=== PATIENT | male | born 1975 | race Caucasian/White ===

== ENCOUNTER 2017-11-27 08:00 | Outpatient (RCR) | payer BC, OTHER, SELFPAY ==
--- NOTE | 2017-10-14 08:02 | HP.PTREVAL ---
Jennifer Souza, , MUSIC REHABILITATION THERAPIST.TATIA[place] It has been my pleasure to treat ALLEGRA GUAJARDO over the last 13 visits for L/S disc herniation s/p discectomy early August. Please see the progress note below for an update on the physical therapy plan of care! Subjective: R shoulder sore, must have slept on it wrong Saturday. No pain in LB. Still has rouble getting out of bed and up from lying if there too long. Objective/Function: No deviations seen in gait pattern of slow jog. Improving L/S ROM near full ext with just a minor pinch, R SB is good, L SB is mildly uncomfortable transiently, flexion is improving. Some discomfort with R c/s rotation in R UT, shoulder is strong and goo full motion. Plan Plan: Pt to do strengthening I...in clinic will progress jogging toward a mile and rollout, stretch HS and overpressure on LB ROM. Goals Goal 1:: L/S AROM without pain or resistance. Goal Time Frame: 4-6 Weeks Goal 2:: I approp stretching and strengthening for LB and LE Goal Time Frame: 4-6 Weeks Goal Progress: Goal Met Goal 3:: Exit chair normally without compensation Goal Time Frame: 4-6 Weeks Goal 4:: Plan to start lifting and running Goal Time Frame: 4-6 Weeks Anticipated Interventions Patient/Client Instruction: Educate patient on: Condition, Plan of Care For the Purpose of:: To decrease pain, To increase ROM, To improve ability of physical actions for home/community/work/leisure Therapeutic Exercise to Include: Strength training, Postural training, Flexibilty training, Passive ROM, Active ROM For the Purpose of:: To decrease pain, To increase ROM, To improve nutrient delivery to tissue, To improve muscle performance and motor function, To improve ability of physical actions for home/community/work/leisure, To improve gait and locomotor functions Manual Therapy Techniques to Include: Scar massage, Soft tissue mobilization For the Purpose of:: To improve nutrient delivery to tissue Cryotherapy (ice pack, ice massage): Yes For the Purpose of:: To decrease pain, To decrease swelling/inflammation Please do not hesitate to contact me at [phone] by phone or if you have questions or concerns regarding this new plan of care! Sincerely, Juan Mcadams, DPT, OC
--- NOTE | 2017-10-25 08:32 | HP.PTREVAL_ITS ---
Jennifer Souza, , It has been my pleasure to treat ALLEGRA GUAJARDO over the last 16 visits for L/S disc herniation s/p discectomy early August. Please see the progress note below for an update on the physical therapy plan of care! Subjective: Jog on TM 1.6 miles at 5.5 mph today without pain. Still feels tight in legs but no low back pain. Working out 3x week on weights and 5x week CV and stretches. MWF are running days and stretching. Still stiff if lies flat for a period of time and hard to get up. Threw BP the other nigth for a little bit and got tight half hour later. Objective/Function: Ext good with R tightness. Flexion improving, SB tigh in T/ S but not L/S, HS and hip flexors still mod tight(explained this would be a lifelong novak.). Doing well with goals and working hard. Plan Plan: f/u in 2-3 weeks to ensure progression with jog and check goals and ROM Goals Goal 1:: L/S AROM without pain or resistance. Goal Time Frame: 4-6 Weeks Goal Progress: Goal Met Goal 2:: I approp stretching and strengthening for LB and LE Goal Time Frame: 4-6 Weeks Goal Progress: Goal Met Goal 3:: Exit chair normally without compensation Goal Time Frame: 4-6 Weeks Goal Progress: Goal Met Goal 4:: Plan to start lifting and running Goal Time Frame: 4-6 Weeks Goal 5:: Decreased pain getting up in morning Goal Time Frame: 2-4 Weeks Goal Progress: NEW GOAL Goal 6:: Jog 3 miles on TM without pain Goal Time Frame: 2-4 Weeks Goal Progress: NEW GOAL Anticipated Interventions Patient/Client Instruction: Educate patient on: Condition, Plan of Care For the Purpose of:: To decrease pain, To increase ROM, To improve ability of physical actions for home/community/work/leisure Therapeutic Exercise to Include: Strength training, Postural training, Flexibilty training, Passive ROM, Active ROM For the Purpose of:: To decrease pain, To increase ROM, To improve nutrient delivery to tissue, To improve muscle performance and motor function, To improve ability of physical actions for home/community/work/leisure, To improve gait and locomotor functions Manual Therapy Techniques to Include: Scar massage, Soft tissue mobilization For the Purpose of:: To improve nutrient delivery to tissue Cryotherapy (ice pack, ice massage): Yes For the Purpose of:: To decrease pain, To decrease swelling/inflammation Please do not hesitate to contact me at [phone] by phone or Fax: if you have questions or concerns regarding this new plan of care! Sincerely, Juan Mcadams, DPT, OC
--- NOTE | 2017-11-12 15:30 | HP.PTREVAL_ITS ---
Jennifer Souza, , It has been my pleasure to treat ALLEGRA GUAJARDO over the last 17 visits for L/S disc herniation s/p discectomy early August. Please see the progress note below for an update on the physical therapy plan of care! Subjective: Sore in the low back daily and most of time 8/10 intermittently. Lying flat still a rpoblem especially getting up. Numbness in L leg if overdoes it and was told it would be there for a year. Sleep is restless. 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 Running is OK and is 5.5 TM for 2-2.5 miles. Was in [place] a week and not bad when he was there. Objective/Function: 5/5 le STRENGTH. Getting up from lying on tummy 3 minutes is still very problematic and uncomfortable appearing unstable in L/S. PA pressure not painful. R piriformis is minimally tender and hurts to R rotation and B SB. L/S ext adn flexion are WFL and painfree(no increased symptoms). Walks well and without deficits. PAIN IS STILL TOO HIGH AT 8/10 DAILY AND WORSENING, PAIN AND APPARENT INSTABILITY GETTING UP OFF TABLE FROM TUMMY IS OBVIOUS. HAS NOT PROGRESSED OVER LAST THREE WEEKS WITH PAIN AND IS SLIGHTLY WORSE. DOCTOR AID HE WOULD HAVE PAIN FOR A YEAR AND NUMBNESS BUT THIS IS MORE THAN I EXPECT. Plan Plan: HOLD ALL STRENGTH FOR A WEEK, FOCUS STRETCHING, YOGA FLOW, LB ROM AND tm PROGRESSION/CV EX. RECHECK IN A WEEK AND THEN WEEKLY X4-6 TO ENSURE IMPRROVEMENT AND PROGRESSION BACK TO EX SLOWLY OR REFER BACK TO DOCTOR IF NOT IMPROVING Goals Goal 1:: L/S AROM without pain or resistance. Goal Time Frame: 4-6 Weeks Goal Progress: Goal Met Goal 2:: I approp stretching and strengthening for LB and LE Goal Time Frame: 4-6 Weeks Goal Progress: Goal Met Goal 3:: Exit chair normally without compensation Goal Time Frame: 4-6 Weeks Goal Progress: STILL SOME PAIN Goal 4:: Plan to start lifting and running Goal Time Frame: 4-6 Weeks Goal Progress: Goal Met Goal 5:: Decreased pain getting up in morning Goal Time Frame: 2-4 Weeks Goal Progress: NOT PROGRESS, CHANGED EX Goal 6:: Jog 3 miles on TM without pain Goal Time Frame: 2-4 Weeks Goal Progress: Progressing Anticipated Interventions Patient/Client Instruction: Educate patient on: Condition, Plan of Care For the Purpose of:: To decrease pain, To increase ROM, To improve ability of physical actions for home/community/work/leisure Therapeutic Exercise to Include: Strength training, Postural training, Flexibilty training, Passive ROM, Active ROM For the Purpose of:: To decrease pain, To increase ROM, To improve nutrient delivery to tissue, To improve muscle performance and motor function, To improve ability of physical actions for home/community/work/leisure, To improve gait and locomotor functions Manual Therapy Techniques to Include: Scar massage, Soft tissue mobilization For the Purpose of:: To improve nutrient delivery to tissue Cryotherapy (ice pack, ice massage): Yes For the Purpose of:: To decrease pain, To decrease swelling/inflammation Please do not hesitate to contact me at [phone] by phone or Fax: if you have questions or concerns regarding this new plan of care! Sincerely, Juan Mcadams, DPT, OC
--- NOTE | 2017-11-27 08:30 | HP.PTDCSUM ---
HP - PT D/C Summary It has been my pleasure to treat ALLEGRA GUAJARDO under orders from Jennifer Souza, , for the diagnosis of L/S disc herniation s/p discectomy early August for a total of 18 visit(s). Discharge Date: 11/27/17 Please see the following information for a summary of their discharge status. - Subjective Subjective: Feels a little bit better. Pain down to 5/10 vs. 7/10. Stopped strength and has been stretching and running. Running 2 miles on TM. Still has bad pain getting up from lying down. Always gets bad pain in the morning getting out of bed. Pain is R>L. No real leg symptoms lately, R buittock stiff at times. Has been doing a lot of yard work lately but is taking it easy. Standing at [employer] game too long hurts. Always feel better after running. - Pain LBP Pain Intensity (Out of 10): 0 - Overall Improvement % Improvement: 70 - Objective Objective/Function: AROM L/S WFL, L SB still gives some stretching on R LB. Otherwise ROM improving and Strength in LE is good. PT MOST NOTABLY STILL HAS HIGHER THAN I WOULD EXPECT PAIN DESPITE RESTING AND STRETCHING. HE IS ONE WHO TENDS TO OVERDO THINGS BUT THIS PAIN SEEMS DIFFERENT. IN PARTICULAR, WHENEVER HE LIES DOWN FOR EVEN SHORT PERIODS OF TIME, GETTING UP IS VERY PROBLEMATIC AND SEEMINGLY UNSTABLE WITH BAD PAIN IN LB UNTIL HE IS UPRIGHT. THIS IS APPROPRIATE TO BE CHECKED OUT BY DOCTOR IT IS OUT OF THE ORDINARY AND NOT IMPROVING IN THE SLIGHTEST. - Goals Goal 1:: L/S AROM without pain or resistance. Goal Progress: Goal Met Goal 2:: I approp stretching and strengthening for LB and LE Goal Progress: Goal Met Goal 3:: Exit chair normally without compensation Goal Progress: Goal Met Goal 4:: Plan to start lifting and running Goal Progress: hold Goal 5:: Decreased pain getting up in morning Goal Progress: Not Progressing Goal 6:: Jog 3 miles on TM without pain Goal Progress: Not Progressing - Plan Plan: D/C, pt back to doctor for recheck. - D/C Information Discharge Comments: Pt doing well with exercises. Pain is still higher than i expect at 5/10 with activity despite taking care. Most notably, he has bad pain upon arising from horizontal position especially in am but even after being supine for shorter periods. Recommend he follow up with doctor as this is not improving at all and does make him miserable. If there are questions or concerns regarding this patient's physical therapy, please feel free to call me at [phone]. Thank you for the referral of this patient. Sincerely, Juan Mcadams, DPT, OC
== END 2017-11-27 19:00 | disposition home or self-care (01) ==
LOC: PT 08:00
PROVIDERS: Family Provider Family Medicine; PCP Family Medicine; Visit Provider Nurse Practitioner Acute Care
DX: M51.16 Intervertebral disc disorders with radiculopathy, lumbar region (principal)
CPT/HCPCS: 97110; 97140; 97162; 97530

== ENCOUNTER → 2018-01-22 11:46 | Outpatient (CLI) | payer BC, SELFPAY ==
--- NOTE | 2018-01-22 11:52 | RAD_ITS ---
STUDY: X-RAY - LUMBAR SPINE REASON FOR EXAM: Male, 42 years old. Low back pain. TECHNIQUE: 4 view(s) of the lumbar spine were obtained. Lateral views were performed in flexion and extension.. COMPARISON: 04/11/2016. FINDINGS: Normal lumbar lordosis. There is decreased range of motion on flexion and extension. There is no substantial scoliosis. There is a normal alignment of the vertebrae. Normal vertebral bodies and endplates. There is disc space narrowing at the L5-S1 level. The soft tissue structures are unremarkable. RAD/L/S Spine Bending Flex/Ext IMPRESSION: Degenerative disc disease L5-S1. Decreased range of motion on flexion and extension, which might be due to muscle spasm or guarding. No evidence for subluxation or instability. Electronically Signed: Laci Barclay MD at 7:41 EDT , Service support ,
[2018-01-22 14:25] LABS: Absolute Lymphocyte Count 1.73 X10^3/ul (0.83-4.51); Basophil# 0.01 X10^3/uL; Basophil% 0.2 % (0-1); Eosinophil# 0.05 X10^3/uL; Eosinophils% 0.8 % (0-5); Erythrocyte Sedimentation Rate 9 mm/hr (0-15); Hematocrit 43.9 % (40-54); Hemoglobin 15.6 g/dl (13.0-16.5); Lymphocyte # 1.73 X10^3/ul (4.0); Lymphocyte % 26.7 % (19-41); Mean Corp Hgb Conc 35.5 g/gl (32-36); Mean Corpuscular Hgb 30.5 pg (27.0-32.0); Mean Corpuscular Volume 85.7 fL (80-94); Mean Platelet Vol. 9.9 fl (6.2-12.0); Monocyte# 0.64 X10^3/uL; Monocyte% 9.9 % (0-10); Neutrophil # 4.03 X10^3/uL (2.7-7.7); Neutrophil % 62.2 % (47-70); Platelet Count 186 K/mm3 (150-450); RBC Distribution Width CV 12.9 % (11.6-14.6); RBC Distribution Width SD 39.7 fl (35.1-43.9); Red Blood Count 5.12 M/mm3 (4.6-6.2); White Blood Count 6.5 K/mm3 (4.4-11.0)
[2018-01-22 14:29] LABS: CRP < 2.90 mg/L (0.0-3.0)
[2018-01-22 14:30] LABS: POSITIVE COUNT NO; POSITIVE DIFFERENTIAL NO; POSITIVE MORPHOLOGY NO
== END ==
PROVIDERS: Family Provider Family Medicine; PCP Family Medicine; Visit Provider Nurse Practitioner Acute Care
DX: M51.16 Intervertebral disc disorders with radiculopathy, lumbar region (principal)
CPT/HCPCS: 36415; 72120; 85025; 85652; 86140

== ENCOUNTER → 2018-06-18 16:11 | Outpatient (CLI) | payer BC, SELFPAY ==
[2018-06-18 17:43] LABS: AST(SGOT) 20 U/L (15-37); Alanine Aminotransfer ALT/SGPT 53 U/L (16-61); Albumin, Serum 3.7 g/dL (3.2-5.0); Alkaline Phosphatase 108 U/L (45-117); Globulin 4.2 g/dL (2.2-4.2); Protein, Total 7.9 g/dL (6.4-8.2)
== END ==
PROVIDERS: Family Provider Family Medicine; PCP Family Medicine; Visit Provider Internal Medicine Rheumatology
DX: R74.8 Abnormal levels of other serum enzymes (principal)
CPT/HCPCS: 36415; 80076

== ENCOUNTER → 2018-10-23 07:10 | Outpatient (CLI) | payer BC, SELFPAY ==
--- NOTE | 2018-10-23 07:27 | MRI_ITS ---
STUDY: MRI RIGHT ANKLE WITHOUT CONTRAST REASON FOR EXAM: Pain superior to the malleoli, chronic right ankle strain, evaluate for stress fracture. TECHNIQUE: Standardized fat and water weighted pulse sequences were obtained in all 3 orthogonal planes. COMPARISON: None. FINDINGS: Normal subcutis adipose space. Normal posterior tibialis tendon. Normal flexor digitorum longus tendon. Normal flexor hallucis longus tendon. Normal peroneus longus and brevis tendons. Normal tibialis anterior tendon. Normal extensor hallucis longus tendon. Normal extensor digitorum longus tendons. Normal Achilles tendon and teno-osseous insertion. Normal plantar fascia. Normal plantar calcaneal tubercles. Normal intrinsic muscles of the rearfoot. There is scarring with thickening of the anterior and posterior tibiofibular ligaments of the distal tibiofibular syndesmotic ligamentous complex (T2 axial images 15, 16) and ossification in the distal tibiofibular syndesmosis (T1 axial images 4-11). There is mild thickening of the anterior talofibular ligament (T2 axial image 20) consistent with scarring. Normal calcaneofibular and posterior talofibular ligaments. Normal subtalar ligaments and sinus tarsi. Normal deltoid ligamentous complexes. Normal plantar calcaneonavicular (spring) ligament. There is a small tibiotalar joint effusion (inversion recovery sagittal images 9-11). Normal talar dome. Normal subtalar articulations. Normal talonavicular articulation. Normal calcaneocuboid articulation. Normal navicular-cuneiform articulations. There is intramedullary bone edema/periosteal edema of the distal fibular diaphysis (inversion recovery sagittal images 6, 7), a stress phenomenon. There is very mild bone edema of the posterior aspect of the medial malleolus (inversion recovery sagittal image 20; T2 coronal image 16), a stress phenomenon. MRI/Lower Ext Joint Only (Routine) IMPRESSION: Bone edema of the distal fibular diaphysis, a stress phenomenon. Very mild bone edema of the posterior aspect of the medial malleolus, a stress phenomenon. Scarring of the anterior and posterior tibiofibular ligaments with ossification in the distal tibiofibular syndesmosis. Mild scarring of the anterior talofibular ligament. Small tibiotalar joint effusion. Electronically Signed: Easton Mcghee MD at 9:06 EDT Tel , Service support ,
== END ==
PROVIDERS: Family Provider Family Medicine; PCP Family Medicine; Referring Provider Podiatrist; Visit Provider Podiatrist
DX: M84.371A Stress fracture, right ankle, initial encounter for fracture (principal); S96.911A Strain of unspecified muscle and tendon at ankle and foot level, right foot, initial encounter
CPT/HCPCS: 73721

== ENCOUNTER 2018-11-28 07:00 | Outpatient (RCR) | payer BC, SELFPAY ==
--- NOTE | 2018-11-07 12:58 | HP.PTEVAL ---
Patient's Visit Information ALLEGRA GUAJARDO is a 43 year old M referred to Physical Therapy by Adria Galindo DPM with a diagnosis of chronic ankle sprain. Date of Evaluation: 11/07/18 Physical Therapist: Juan Mcadams DPT, OCS, CSCS - Visit Plan Frequency: 3x /Week Duration: 4-6 Weeks Plan: 3x/week fro 4-6 weeks per script for. 1. Ionto with dex to R medial ankle. 2. ROM and strength/proprioception to R ankle without interrupting syndesmotic healing and wearing brace as needed. 3. mobs as needed for inv/ev/df and progression of function. 4. - Subjective Findings: June got a high ankle sprain after slipping up hill and busting lip. Hurt a little and swelled up at the time. Has had to stop running and let it heal. Slow. A month ago went to do some [place] dn dry needling without results. Sent to [facility] and then Dr. Galindo. MRi showed partial inflammation. In ankle brace for a week which helps but it still hurts to 6/10 immediately outside ankle and posterior. Noticeable but comfortable at rest. H/O back pain and nerve ablation on R side adn it cured his back pain for normal every day activtiies. Hasn't done anything in gym in two weeks due to pain. It increased his pain to 8/10 - Pain R ankle pain Pain Intensity (Out of 10): 4 Pain Intensity Range: 4, 7 - Objective R ankle brace donned and doffed I. Tender to palpation distal medial and lateral malleoli and posterior to it, also up medial achilles. AROM R ankle is 2 DF vs. 5 on L, full PF with pain, incersion and eversion are 18 and 8 on R and 24 adn 12 on L with R sided pain slightlym better with squeeze of tib fib. Pes planus B but has orthtics and never liked them. strength R ankle 4/5 with pain with inv/ev/PF and 5/5 L. + talar tilt. + drawer test R ankle. Knee and hip WFL. Walks normal today but SLS R worse than L at 12 seconds vs 30 . Unable to land on a hop without pain R medial ankle. - Goals Goal 1:: Pain free at rest adn back to some workout Goal Time Frame: 2-4 Weeks Goal 2:: Full AROM and resisted strength test without pain R ankle Goal Time Frame: 4-6 Weeks Goal 3:: Work and walk for social without pain R ankle Goal Time Frame: 4-6 Weeks Goal 4:: Plan to return to jogging. Goal Time Frame: 4-6 Weeks - Rehabilitation Potential Physical Therapy Diagnosis: R high ankle sprain. Rehabilitation Potential: Fair - Anticipated Interventions Patient/Client Instruction: Educate patient on: Condition, Plan of Care For the Purpose of:: To decrease pain, To increase ROM, To improve gait and locomotor functions Therapeutic Exercise to Include: Strength training, Flexibilty training, Passive ROM, Active ROM For the Purpose of:: To improve ability of physical actions for home/community/work/leisure, To improve gait and locomotor functions Iontophoresis (with Dexamethozone, with Acetic acid): Yes - to R ankle medially. For the Purpose of:: To decrease pain, To decrease swelling/inflammation Thank you for the opportunity to evaluate your patient. For Medicare and Medicare HMO plans, please review the plan of care and approve it. It will need to be FAXED BACK to us at [phone] for Medicare purposes. For Medicare only, by signing this I certify the plan of care. Please let me know if there are questions or concerns regarding this plan of care. Physician Signature: Date:
--- NOTE | 2019-02-03 13:44 | HP.PTDCNRP_ITS ---
HP - Discharge Summary (1) - Patient Information ALLEGRA GUAJARDO was seen in my office for initial evaluation on 11/07/18. The following Plan of Care was established for this patient: Initial Frequency: 3x /Week Initial Duration: 4-6 Weeks - Anticipated Interventions Patient/Client Instruction: Educate patient on: Condition, Plan of Care For the Purpose of:: To decrease pain, To increase ROM, To improve gait and loc omotor functions Therapeutic Exercise to Include: Strength training, Flexibilty training, Passive ROM, Active ROM For the Purpose of:: To improve ability of physical actions for home/community/work/leisure, To improve gait and locomotor functions Iontophoresis (with Dexamethozone, with Acetic acid): Yes - to R ankle medially. For the Purpose of:: To decrease pain, To decrease swelling/inflammation This patient was last seen in our office 11/28/18. Pertinent comments regarding their Physical therapy will appear below: Pt seen 5 visits of POC. He neglected to schedule or attend any further visits. At this point, it has been over two months adn I will discontinue due to non attendance. At this point I will be discontinuing this patient from physical therapy. I would be happy to see this patient again in the future if found appropriate by the physician. Thank you! Juan Mcadams, DPT, OCS, CSCS
== END 2018-11-28 19:00 | disposition home or self-care (01) ==
LOC: PT 07:00
PROVIDERS: Family Provider Family Medicine; PCP Family Medicine; Referring Provider Podiatrist; Visit Provider Podiatrist
DX: S93.401D Sprain of unspecified ligament of right ankle, subsequent encounter (principal)
CPT/HCPCS: 97033; 97110; 97140; 97162

== ENCOUNTER 2019-02-11 20:54 | Emergency (ER) | payer BC, SELFPAY ==
[2019-02-11 20:55] VITALS: BP 133/78; PULSE 60; RESP 16; TEMP 36.8; O2SAT 96; BMI 31.6
--- NOTE | 2019-02-11 21:31 | ED.DCSUM_ITS ---
- ER Visit Summary Date of Service: 02/11/19 Chief Complaint: Headache History of Present Illness: The patient is a 43 M who presents with migraine headache that began today. Patient states this feels similar to prior migraine headaches except for the fact that it was not responding to his usual medication . Patient states the headache is diffuse across his head. Patient states it is worse on the left. Patient admits to some nausea and vomiting. Patient admits to some photophobia. Patient denies any fevers or chills. Patient denies any paresthesias or weakness. Patient denies any visual changes. Physical Examination: Vital signs are stable. Patient is afebrile. Patient is in no acute distress. Oral mucosa is pink and moist. Neck is supple. Trachea is midline. There is no JVD noted. Heart was regular rate and rhythm. Lungs are clear and equal bilateral. Abdomen is soft. Bowel sounds are normal. There is no tenderness. There is no guarding noted. Skin is warm dry. Cranial nerves II through XII are intact. There are no focal motor or sensory deficits noted. The remaining physical exam is within normal limits. Emergency Department Course and Treatment: Patient was given IV fluids, Benadryl, Compazine, and Toradol. Patient felt better on reevaluation. Patient states his headache was almost resolved. Patient was instructed to rest in a dark quiet room. Patient was instructed to follow-up with his primary care physician in 5 to 7 days. Patient understood and was agreeable with the plan. All questions were answered. Disposition: Discharge home Impression: Migraine headache This note was generated with [employer] dictation software. It may contain incorrect words, spelling, and punctuation that were not noted in review of the chart prior to signing ED Disposition - Plan for ED Patient: Disposition: Home or Assisted Living Diagnosis: Migraine headache Instructions: ED, Migraine (Classical) Referrals: Lyndon Sarabia MD [Primary Care Provider] - 5-7 Days
[2019-02-11] MEDS: 0.9% Normal Saline 1,000 ML 999 ML IV (21:46)
[2019-02-11] MEDS: proCHLORPERazine 10 MG/2 ML Vial IV (21:48)
[2019-02-11] MEDS: Ketorolac 30 MG/ML Syringe IV (21:48)
[2019-02-11] MEDS: DiphenhydrAMINE 50 MG/ML Syringe 25 MG IV (21:48)
== END 2019-02-11 23:04 | disposition home or self-care (01) ==
PROVIDERS: Emergency Provider Emergency Medicine; Family Provider Family Medicine; PCP Family Medicine
DX: G43.909 Migraine, unspecified, not intractable, without status migrainosus (principal)
CPT/HCPCS: 96361; 96374; 96375; 99283; J7030; A4216

== ENCOUNTER → 2019-03-17 09:03 | Outpatient (CLI) | payer BC, SELFPAY ==
[2019-03-17 10:50] LABS: Anion Gap 7 (5-15); BUN 15 mg/dL (7-18); BUN/Creat Ratio 13.5 RATIO (10-20); Calcium,Total 8.9 mg/dL (8.5-10.1); Chloride 108 mmol/L (98-107); Cholesterol 201 mg/dL (200); Creatinine, Serum 1.11 mg/dL (0.70-1.30); EST Glomerular Filtration Rate 77 mL/min (>60); Est Glom Filt Rate - Afr Amer 94 mL/min (>60); Glucose 99 mg/dL (74-106); High Density Lipoprotein 30 mg/dL; Sodium Level 140 mmol/L (136-145); Triglycerides 196 mg/dL; Very Low Density Lipoprotein 39 mg/dL (5-40)
== END ==
PROVIDERS: Family Provider Family Medicine; PCP Family Medicine; Referring Provider Family Medicine; Visit Provider Family Medicine
DX: E78.5 Hyperlipidemia, unspecified (principal)
CPT/HCPCS: 36415; 80048; 80061

== ENCOUNTER → 2019-05-19 06:37 | Outpatient (CLI) | payer BC, SELFPAY ==
--- NOTE | 2019-05-19 06:41 | MRI_ITS ---
STUDY: MRI LUMBAR SPINE WITHOUT CONTRAST REASON FOR EXAM: Male, 43 years old. Low back pain. Right hip pain. TECHNIQUE: Standardized fat and water weighted pulse sequences were obtained in the sagittal and axial planes. COMPARISON: January 22, 2018 x-rays. FINDINGS: Lumbar straightening. No significant scoliosis. Conus medullaris terminates normally at the L1 level. No acute fracture, dislocation or osseous destruction. Atypical hemangioma within the L5 vertebral body. Additional hemangiomas throughout the visualized portions of the lumbar spine. No acute fracture. No dislocation. No acute bone destruction. Normal retroperitoneum. Normal paraspinal muscles. Normal aorta. Postsurgical scar. T12-L1: Normal endplates. Normal disc height, hydration and morphology. Normal bilateral facet joints. Normal central canal and bilateral lateral recesses. Normal bilateral intervertebral neural foramina. L1-2: Normal endplates. Normal disc height, hydration and morphology. Normal bilateral facet joints. Normal central canal and bilateral lateral recesses. Normal bilateral intervertebral neural foramina. L2-3: Normal endplates. Normal disc height, hydration and morphology. Normal bilateral facet joints. Normal central canal and bilateral lateral recesses. Normal bilateral intervertebral neural foramina. L3-4: Normal endplates. Normal disc height, hydration and morphology. Normal bilateral facet joints. Normal central canal and bilateral lateral recesses. Normal bilateral intervertebral neural foramina. L4-5: Normal endplates. Disc bulge, right paracentral disc protrusion, with mild central canal narrowing. Minimal facet arthrosis. Right lateral recess narrowing without impingement. Neural foraminal narrowing without impingement. L5-S1: Moderate/severe endplate spondylosis. Disc bulge, asymmetric to the left, without central canal narrowing. Disc height loss. Minimal facet arthrosis. Normal central canal and bilateral lateral recesses. Neural foraminal narrowing without impingement. Left hemilaminotomy. 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
== END ==
PROVIDERS: Family Provider Family Medicine; PCP Family Medicine; Referring Provider Anesthesiology Pain Medicine; Visit Provider Anesthesiology Pain Medicine
DX: M54.5 Low back pain (principal); M25.551 Pain in right hip; M79.604 Pain in right leg
CPT/HCPCS: 72148

== ENCOUNTER → 2019-11-02 15:35 | Outpatient (CLI) | payer BC, SELFPAY ==
--- NOTE | 2019-11-02 15:39 | RAD_ITS ---
STUDY: X-RAY - CERVICAL SPINE REASON FOR EXAM: Male, 44 years old. CERVICALGIA WITH TINGLING IN HAND FOR A FEW DAYS NOW. NO KNOWN INJURY. TECHNIQUE: 5 view(s) of the cervical spine were obtained including oblique views. COMPARISON: None FINDINGS: Normal anterior atlantoaxial articulation. Normal odontoid process. Normal cervical lordosis. Normal vertebral bodies and endplates. Mild degree of disc space narrowing at the C6-C7 level. Normal visualized intervertebral neuroforamina. The soft tissue structures are unremarkable. RAD/Cerv Spine 4 or 5 Views IMPRESSION: Mild degree of disc space narrowing at the C6-C7 level. Electronically Signed: Babar Bhandari, at 15:59 EDT , Service support ,
== END ==
PROVIDERS: PCP Family Medicine; Referring Provider Family Medicine; Visit Provider Family Medicine
DX: M54.2 Cervicalgia (principal)
CPT/HCPCS: 72050

== ENCOUNTER 2019-12-23 07:30 | Outpatient (RCR) | payer BC, SELFPAY ==
--- NOTE | 2019-11-17 10:50 | HP.PTEVAL_ITS ---
Patient's Visit Information ALLEGRA GUAJARDO is a 44 year old M referred to Physical Therapy by ANDRZEJ Barton with a diagnosis of cervical radiculopathy. Date of Evaluation: 11/17/19 Physical Therapist: Juan Mcadams, GELYT, OCS, CSCS - Visit Plan Frequency: 3x /Week Duration: 4 Weeks Plan: 3x/week for 3-4 weeks for.. Olivia based c/s ret ext when appropriate and ext mobs to c/s and upper thoracic. Cervical traction as helpful. postural cervvical strength. ES if needed with Mh. - Subjective C5 is pinching and causing R hand numbness for 2.5 weeks constantly. Intensity changes but constant. Had xray and MRI whcih show disc bulge. Numbness in R 2/3 digit anteriorly. Insidious onset and jsut woke up that way. Feels weak in r shoulder but no real pain. 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 Worse the next day. Prednosione is not helping. Not working out due to gym closure. Sleep is bothersome as it wakes him up nightly. Tends to sleep on left side and be more bothersome. Activites are normal, just bothersome now. - Objective Posture is forward head and elevated scap. Tender to palpation slight on R UT/cervical area. cervical AROM ext 50 with R pinch, retraction big R pinch, Rotations 70 with pinch R. + c/s compression test R. reflexes 2/3 bi and tri. Sensation diminished inR 23 digit anteriorly to gross light touch. Strength B UE 4/5 shoulders and elbows and wrists and thumb with myotomal abnormalities. repeated motion: protrusion: sore neck, NE numbness. retraction:Produces pain during 5/10 in neck, B motion rotation. ret/ext: Produces pain end range during, W numbness., rotaion worse R. - Goals Goal 1:: abolish R hand numbness Goal Time Frame: 2-4 Weeks Goal 2:: Full cervical ROM with head on shoulders posture. Goal Time Frame: 2-4 Weeks Goal 3:: Pt feel 90% better and back to wrokout without symptoms Goal Time Frame: 2-4 Weeks Goal 4:: sleep without waking at night Goal Time Frame: 2-4 Weeks - Rehabilitation Potential Physical Therapy Diagnosis: cervical radiculopathy Rehabilitation Potential: Fair - Anticipated Interventions Patient/Client Instruction: Educate patient on: Condition, Plan of Care For the Purpose of:: To increase tolerance to activity/condition/position Therapeutic Exercise to Include: Strength training, Postural training, Flexibilty training, Passive ROM, Active ROM, Olivia Exercises For the Purpose of:: To increase tolerance to activity/condition/position, To improve ability of physical actions for home/community/work/leisure Other: to abolish numbness Manual Therapy Techniques to Include: Mobilization For the Purpose of:: To increase ROM TENS: Yes Thermo therapy (hot pack): Yes Intermittent cervical traction: Yes For the Purpose of:: To increase ROM Thank you for the opportunity to evaluate your patient. For Medicare and Medicare HMO plans, please review the plan of care and approve it. It will need to be FAXED BACK to us at [phone] for Medicare purposes. For Medicare only, by signing this I certify the plan of care. Please let me know if there are questions or concerns regarding this plan of care. Physician Signature: ____Date:
--- NOTE | 2019-12-03 13:17 | HP.PTREVAL ---
Georgette Newton, AYANNA-C, It has been my pleasure to treat ALLEGRA GUAJARDO over the last 5 visits for cervical radiculopathy. Please see the progress note below for an update on the physical therapy plan of care! Subjective: pain in neck is much better, R UT stretch really helps. Retraction still causes pain. Tingling has not changed better or worse and is constant. Sleep is not great due to discomfort. Arm is numb if sleeps on back with one pillow. Neck pain is 4/10 vs 8/10 previously and is now intermittent. Activities pretty normal. Seen Dr. Garcia office and trying to schedule nerve block through insurance but getting kicked back. Not scheduled yet. No change iwth cervical flexion. Objective/Function: tingling in R 2/3 digit persists unchanged, other sensation WNL in UE. reflexes 1/3 in bi and tri B. Strength 4+/5 in UE without myotomal abnormalities and symmetrical. Neck ROM 80 degrees B rotationa dn 70 ext both improved. NE repeated ext off table is worse motion and tingling. c/s ext mobs improved tingling and better motion. Goals still appropriate with fair prognosis. Plan Plan: 2-3x/week for 2-3 weeks for... 1. c/s retraction biased ex progressing to ext wihen retraction is painfree. 2. Please do grade 4 c/s upper T/S ext mobs each session preceded by gun massage to UT and cervical and ensure home UT stretch. 3. Continue ICT mechanical traction each session. 4. Pt can do strengthening workout himself but may have questions as the gym reopens and we should answer those. He will be in to workout as soon as gym reopens next week. Goals Goal 1:: abolish R hand numbness Goal Time Frame: 2-4 Weeks Goal Progress: Not Progressing Goal 2:: Full cervical ROM with head on shoulders posture. Goal Time Frame: 2-4 Weeks Goal Progress: Progressing, approp Goal 3:: Pt feel 90% better and back to wrokout without symptoms Goal Time Frame: 2-4 Weeks Goal Progress: Progressing, approp Goal 4:: sleep without waking at night Goal Time Frame: 2-4 Weeks Goal Progress: Not Progressing Anticipated Interventions Patient/Client Instruction: Educate patient on: Condition, Plan of Care For the Purpose of:: To increase tolerance to activity/condition/position Therapeutic Exercise to Include: Strength training, Postural training, Flexibilty training, Passive ROM, Active ROM, John Exercises For the Purpose of:: To increase tolerance to activity/condition/position, To improve ability of physical actions for home/community/work/leisure Other: to abolish numbness Manual Therapy Techniques to Include: Mobilization For the Purpose of:: To increase ROM TENS: Yes Thermo therapy (hot pack): Yes Intermittent cervical traction: Yes For the Purpose of:: To increase ROM Please do not hesitate to contact me at [phone] by phone or if you have questions or concerns regarding this new plan of care! Sincerely, Juan Mcadams, DPT, OCS, CSCS
--- NOTE | 2019-12-23 08:55 | HP.PTDCSUM ---
It has been my pleasure to treat ALLEGRA GUAJARDO referred by ANDRZEJ Barton, with the diagnosis of cervical radiculopathy for a total of 10 visit(s). Discharge Date: 12/23/19 Please see the following information for a summary of their discharge status. Subjective: Tingling and neck pain 70% better. Will have injections Saturday for nerve block. Neck pain gets to about 3/10 with turning. Pretty comfortable at rest. especially turning R. Sleeping is good. Activities normal. Runing 4 miles without change to neck problems. c-spine Pain Intensity (Out of 10): 0 R UE Pain Intensity (Out of 10): 1 % Improvement: 70 Objective/Function: 73 degree B rotation without pain c/s , 65 ext without pain. - c/s compressiont est. No tenderness in neck. 4+/5 shoulder and elbow strength without pain(mild R shoulder with ext rotation) Goal 1:: abolish R hand numbness Goal Progress: [id number]% Goal 2:: Full cervical ROM with head on shoulders posture. Goal Progress: Progressing, approp Goal 3:: Pt feel 90% better and back to wrokout without symptoms Goal Progress: Progressing Goal 4:: sleep without waking at night Goal Progress: Goal Met Plan: d/c Discharge Comments: Pt to doctor next week for possible injections. May want to consider hoe cervical traction if pain returns. If there are questions or concerns regarding this patient's physical therapy, please feel free to call me at [phone]. Thank you for the referral of this patient. Sincerely, Juan Mcadams, DPT, OCS, CSCS
== END 2019-12-23 19:00 | disposition home or self-care (01) ==
LOC: PT 07:30
PROVIDERS: PCP Family Medicine; Referring Provider Nurse Practitioner Family; Visit Provider Nurse Practitioner Family
DX: M47.22 Other spondylosis with radiculopathy, cervical region (principal); M48.02 Spinal stenosis, cervical region
CPT/HCPCS: 97012; 97014; 97110; 97140; 97162; 97164; G0283

== ENCOUNTER 2020-11-21 08:00 | Outpatient (RCR) | payer BC, SELFPAY ==
--- NOTE | 2020-10-31 07:44 | HP.PTEVAL ---
Patient's Visit Information ALLEGRA GUAJARDO is a 45 year old M referred to Physical Therapy by ANDRZEJ Barton with a diagnosis of Lumbar radiculopathy.. Date of Evaluation: 10/31/20 Physical Therapist: Juan Mcadams, DPT, OCS, CSCS - Visit Plan Frequency: 2x /Week Duration: 4-6 Weeks Plan: 2x/week for 4-6 weeks for... 1. rollout and stretch and teach for hep hip flexors and quads, HS, pirifromis, ITB with pics, LB ROM progression to yoga flows. 2. core strength mat progressing to HEP. 3. NS posture emphasis and progress to HEP emphasis on [place] [facility] compliance. 4. ES and MH if needed. May want to progress to gym based program - Subjective LB hurts. Also into R leg adn B foot numbness which is intermittent.Has had injections from Dr. Garcia and has had ablations. They help but last caudal epidural did not do what he hoped. . LBP is constant in middle, 12/22 . Worse with lifting heavy things. Also if I do too much. 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 Goes down R lat leg and L knee. Intemrittinet numbness in feet, more pronounced with aggravation. Such as after coaching. Sleep is not great, hard to sleep alot. Had 08/2107 for back surgery aminectomy(Dr. Thompson) Not seen lately. Sitting at work requires him to get up and wal alot btu he can do his job. Basic ADLs are getting done. Yardwork needs to slow down. Enjoys coaching baseballa dn askiing which did not bother him over the weeknd. Cannot ride mow for long. Walking 3miles every other day. No back exercises. feels tight and needs stretches. - Pain LB Pain Intensity (Out of 10): 5 Pain Intensity Range: 6 - Objective Walks stiff and slow. Trasnfers I but stiff getting up from chair and table. Hesitant. I with all mobility. Incision in middle LB form previous surgery healed well. max tightness in HS, piriformis, hip flexors, quads, gastroc, ITB. -40 90/90 HS test. LB AROM ext max limited to about 8 degrees. felxion slow and very limited segmentall in L/S. Extension is painful. SB Mod limtied B and tight feeling contralaterally. reflexes 2/3 patella and achilles. Sensation EL WNL to gross light touch in legs. Strength LE 4+/5 ankles and knees, 4- hip felxion and 3+ abd and extension. - Goals Goal 1:: Pt I in mnagement icluding home stretches and strength. Goal Time Frame: 4-6 Weeks Goal 2:: Pt feel pain 1/10 at worst and intermittent and 75% improved overall. 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 Goal Time Frame: 4-6 Weeks Goal 5:: Oswestry B score 8 or less. Goal Time Frame: 4-6 Weeks - Rehabilitation Potential Physical Therapy Diagnosis: LB degenerative changes causing pain and dysfunction. Rehabilitation Potential: Fair - Anticipated Interventions Patient/Client Instruction: Educate patient on: Condition, Plan of Care For the Purpose of:: To decrease pain, To increase ROM, To improve muscle performance and motor function Therapeutic Exercise to Include: Strength training, Postural training, Flexibilty training, Passive ROM, Active ROM, Dynamic Lumbar Stabilization For the Purpose of:: To decrease pain, To increase ROM, To improve muscle performance and motor function, To increase tolerance to activity/condition/position, To improve ability of physical actions for home/community/work/leisure Manual Therapy Techniques to Include: Soft tissue mobilization For the Purpose of:: To decrease pain, To improve nutrient delivery to tissue TENS: Yes Thermo therapy (hot pack): Yes For the Purpose of:: To decrease pain Thank you for the opportunity to evaluate your patient. For Medicare and Medicare HMO plans, please review the plan of care and approve it. It will need to be FAXED BACK to us at [phone] for Medicare purposes. For Medicare only, by signing this I certify the plan of care. Please let me know if there are questions or concerns regarding this plan of care. Physician Signature: Date:
--- NOTE | 2020-11-21 08:59 | HP.PTREVAL_ITS ---
Georgette Newton, BIOCHEMIST-C, It has been my pleasure to treat ALLEGRA GUAJARDO over the last 6 visits for Lumbar radiculopathy.. Please see the progress note below for an update on the physical therapy plan of care! Subjective: Doing OK and seeing improements. Feeling like he is starting to loosen up. Doing stretches at home. Needs more strengthening. Objective/Function: L/S ext adn flexion improved and still slightly painful R post LB with flexion, tight in SB but better. R hip has pain with FADDIR adn IR lat/post which mimics Pain in hip and R upper leg thought to be from LB. PROM of hip WNL and symmetrical with other side, just pain with IR adn end range flexion. + instability test L/S. Walking well and tolerating session outside of specific hip strength(clamshells) without c/o pain. Overall improving slowly. We have gotten him to I with home stretching and ROM and now need to work toward gym strength for d/c. goals still appropriate. Plan Plan: Ensure pt stretching at home adn roling. 2x/week for 3 more weeks to work toward I with gym based strength program for core with goa of d/c to I program. Monitor R hip pain with ex. Goals Goal 1:: Pt I in mnagement icluding home stretches and strength. Goal Time Frame: 4-6 Weeks Goal Progress: stretches, not strength. Goal 2:: Pt feel pain 1/10 at worst and intermittent and 75% improved overall. 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 Goal Time Frame: 4-6 Weeks Goal Progress: not improved. Goal 5:: Oswestry B score 8 or less. Goal Time Frame: 4-6 Weeks Goal Progress: SLOW Anticipated Interventions Patient/Client Instruction: Educate patient on: Condition, Plan of Care For the Purpose of:: To decrease pain, To increase ROM, To improve muscle performance and motor function Therapeutic Exercise to Include: Strength training, Postural training, Flexibilty training, Passive ROM, Active ROM, Dynamic Lumbar Stabilization For the Purpose of:: To decrease pain, To increase ROM, To improve muscle performance and motor function, To increase tolerance to activity/condition/position, To improve ability of physical actions for home/community/work/leisure Manual Therapy Techniques to Include: Soft tissue mobilization For the Purpose of:: To decrease pain, To improve nutrient delivery to tissue TENS: Yes Thermo therapy (hot pack): Yes For the Purpose of:: To decrease pain Please do not hesitate to contact me at [phone] by phone or if you have questions or concerns regarding this new plan of care! Sincerely, Juan Mcadams, DPT, OCS, CSCS
--- NOTE | 2020-11-21 09:01 | HP.PTREVAL_ITS ---
Georgette Newton, RETAIL WIRELESS SALES CONSULTANT-C, It has been my pleasure to treat ALLEGRA GUAJARDO over the last 6 visits for Lumbar radiculopathy.. Please see the progress note below for an update on the physical therapy plan of care! Subjective: Doing OK and seeing improements. Feeling like he is starting to loosen up. Doing stretches at home. Needs more strengthening.Pain to 6/10 with standing long time or sitting in car long time is still the main problem. L upper leg numbness and R lateral leg pain worse wehen hip pain worse. sometimes feels popping in R hip. 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 Objective/Function: L/S ext adn flexion improved and still slightly painful R post LB with flexion, tight in SB but better. R hip has pain with FADDIR adn IR lat/post which mimics Pain in hip and R upper leg thought to be from LB. PROM of hip WNL and symmetrical with other side, just pain with IR adn end range flexion. + instability test L/S. Walking well and tolerating session outside of specific hip strength(clamshells) without c/o pain. Overall improving slowly. We have gotten him to I with home stretching and ROM and now need to work toward gym strength for d/c. goals still appropriate. Plan Plan: Ensure pt stretching at home adn roling. 2x/week for 3 more weeks to work toward I with gym based strength program for core with goa of d/c to I program. Monitor R hip pain with ex. Goals Goal 1:: Pt I in mnagement icluding home stretches and strength. Goal Time Frame: 4-6 Weeks Goal Progress: stretches, not strength. Goal 2:: Pt feel pain 1/10 at worst and intermittent and 75% improved overall. 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 Goal Time Frame: 4-6 Weeks Goal Progress: not improved. Goal 5:: Oswestry B score 8 or less. Goal Time Frame: 4-6 Weeks Goal Progress: SLOW Anticipated Interventions Patient/Client Instruction: Educate patient on: Condition, Plan of Care For the Purpose of:: To decrease pain, To increase ROM, To improve muscle performance and motor function Therapeutic Exercise to Include: Strength training, Postural training, Flexibilty training, Passive ROM, Active ROM, Dynamic Lumbar Stabilization For the Purpose of:: To decrease pain, To increase ROM, To improve muscle performance and motor function, To increase tolerance to activity/condition/position, To improve ability of physical actions for home/community/work/leisure Manual Therapy Techniques to Include: Soft tissue mobilization For the Purpose of:: To decrease pain, To improve nutrient delivery to tissue TENS: Yes Thermo therapy (hot pack): Yes For the Purpose of:: To decrease pain Please do not hesitate to contact me at [phone] by phone or if you have questions or concerns regarding this new plan of care! Sincerely, Juan Mcdaams, DPT, OCS, CSCS
--- NOTE | 2021-02-07 11:19 | HP.PT.NRP ---
ALLEGRA GUAJARDO was seen in my office for initial evaluation on 10/31/20. The following Plan of Care was established for this patient: Initial Frequency: 2x /Week Initial Duration: 4-6 Weeks Patient/Client Instruction: Educate patient on: Condition, Plan of Care For the Purpose of:: To decrease pain, To increase ROM, To improve muscle performance and motor function Therapeutic Exercise to Include: Strength training, Postural training, Flexibilty training, Passive ROM, Active ROM, Dynamic Lumbar Stabilization For the Purpose of:: To decrease pain, To increase ROM, To improve muscle performance and motor function, To increase tolerance to activity/condition/position, To improve ability of physical actions for home/community/work/leisure Manual Therapy Techniques to Include: Soft tissue mobilization For the Purpose of:: To decrease pain, To improve nutrient delivery to tissue TENS: Yes Thermo therapy (hot pack): Yes For the Purpose of:: To decrease pain This patient was last seen in our office 11/21/20. Pertinent comments regarding their Physical therapy will appear below: Pt seen 6 visits of POC and was improving. We were to continue for 2 more weeks and received approval but patient neglected to schedule or attend any further visits. at this point, it has been over two months and I will disocntinue due to nonattendance. At this point I will be discontinuing this patient from physical therapy. I would be happy to see this patient again in the future if found appropriate by the physician. Thank you! Juan Mcadams, DPT, OCS, CSCS Balance/Gait/Functional tests - Balance/Special Test Scores Oswestry Low Back Score: 12
== END 2020-11-21 19:00 | disposition home or self-care (01) ==
LOC: PT 08:00
PROVIDERS: PCP Family Medicine; Referring Provider Nurse Practitioner Family; Visit Provider Nurse Practitioner Family
DX: M51.37 Other intervertebral disc degeneration, lumbosacral region (principal); M54.16 Radiculopathy, lumbar region; M46.96 Unspecified inflammatory spondylopathy, lumbar region; M47.817 Spondylosis without myelopathy or radiculopathy, lumbosacral region
CPT/HCPCS: 97110; 97161; 97164

== ENCOUNTER → 2020-12-09 13:54 | Outpatient (CLI) | payer BC, SELFPAY ==
--- NOTE | 2020-12-09 13:57 | RAD_ITS ---
STUDY: X-RAY - LEFT FOOT CLINICAL: Male, 45 years old. Pain and swelling TECHNIQUE: 3 view(s) of the foot. COMPARISON: None. FINDINGS: Normal talus and tarsal bones. Calcaneal spurs Normal visualized subtalar, talonavicular, calcaneocuboid, tarsal and tarsometatarsal articulations. Normal metatarsi. Normal metatarsophalangeal joint of the great toe. Normal tibial and fibular sesamoid bones. Normal interphalangeal joint of the great toe. Normal phalanges of the great toe. Normal second through fifth metatarsophalangeal joints. Normal interphalangeal joints and phalanges of the lesser toes. The soft tissue structures are unremarkable. RAD/Foot min 3 Views IMPRESSION: Calcaneal spurs, no demonstrated fracture or suspicious osseous lesion Electronically Signed: Robbin Rankin MD at 17:12 EDT , Service support ,
--- NOTE | 2020-12-09 13:58 | RAD_ITS ---
STUDY: X-RAY - LEFT TIBIA AND FIBULA REASON FOR EXAM: Male, 45 years old. INJURY TECHNIQUE: 4 view(s) of the tibia and fibula were obtained. COMPARISON: None. FINDINGS: Normal visualized tibia. Normal visualized fibula. The soft tissue structures are unremarkable. RAD/Tibia & Fibula 2 Views IMPRESSION: Normal x-ray examination of the tibia and fibula. Electronically Signed: Robbin Rankin MD at 17:11 EDT , Service support ,
== END ==
PROVIDERS: PCP Family Medicine; Referring Provider Family Medicine; Visit Provider Family Medicine
DX: S89.90XA Unspecified injury of unspecified lower leg, initial encounter (principal)
CPT/HCPCS: 73590; 73630

== ENCOUNTER 2021-03-15 08:26 | Emergency (ER) | payer BC, SELFPAY ==
[2021-03-15 08:27] VITALS: BP 144/95; PULSE 59; RESP 17; TEMP 36.1; O2SAT 99; BMI 31.1
--- NOTE | 2021-03-15 08:42 | ED.VIS.BACK ---
HPI History of Present Illness Chief Complaint: Back Narrative Narrative: Patient was lifting some lumbar out of his pickup truck yesterday he presents this morning with lumbar pain mostly on the right. There is no radiation to the leg. There is no bowel or bladder compromise. No urinary retention symptoms. There is no saddle anesthesia, no decreased rectal tone. No recent fevers or chills. PFSH PFSH Home Medications acyclovir [Zovirax] 800 mg PO Q4H 02/19/16 [History Last Taken Unknown] epinephrine 0.3 mg IM X1 #1 syringe 02/19/16 [Rx Last Taken Unknown] prednisone 20 mg PO BIDCM #6 tablet 02/19/16 [Rx Last Taken Unknown] hydrocodone-acetaminophen 1 tab PO Q6H 3 Days #12 tab 03/15/21 [Rx Last Taken Unknown] methylprednisolone [Medrol (Jaspreet)] 4 mg PO DAILY.TCU #21 tab 03/15/21 [Rx Last Taken Unknown] tizanidine 4 mg PO BID PRN #14 tab 03/15/21 [Rx Last Taken Unknown] Allergy/AdvReac Type Severity Reaction Status Date / Time acetaminophen Allergy Other Verified 03/15/21 08:27 [From Darvocet-N] dichloralphenazone Allergy Unknown Verified 03/15/21 08:27 [From Midrin] isometheptene [From Midrin] Allergy Unknown Verified 03/15/21 08:27 pentazocine [From Talacen] Allergy Other Verified 03/15/21 08:27 propoxyphene Allergy Other Verified 03/15/21 08:27 [From Darvocet-N] Sulfa (Sulfonamide Allergy Rash Verified 03/15/21 08:27 Antibiotics) venom-honey bee Allergy Anaphylaxis Verified 03/15/21 08:27 [bee venom (honey bee)] Social History Smoking Status: Never smoker ROS ROS ED ROS Narrative Past medical history: Reviewed, prior back surgery Medications: Reviewed Social history: Noncontributory Review of systems: All systems negative except as indicated General: No fever Cardiovascular: No chest pain Respiratory: No shortness of breath or cough Gastrointestinal: No abdominal pain, nausea vomiting or diarrhea Genitourinary: No dysuria Musculoskeletal: Denies myalgias or extremity injury Back: Back pain as in HPI Skin: No rash Neurological: No memory loss, confusion or any focal weakness, no radicular symptoms Psych: No recent behavioral changes Hematologic: No easy bleeding or easy bruising EXAM Physical Exam Narrative Exam Narrative: Vitals reviewed General: Patient appears in some discomfort HEENT: Moist mucous membranes Neck: Nontender Cardiovascular normal heart rate Respiratory: No respiratory difficulty speaking in full sentences Abdomen: Soft and nontender, there is no suprapubic mass or pain Back: There is some tenderness over the lumbar region, pain is mostly right paraspinal region in the L2-L4 region. Extremities: Moves all extremities without joint pain or signs of trauma Neurological: There is normal plantar flexion and dorsiflexion of both feet and great toes. Patellar and Achilles reflexes are normal. Normal strength and sensation. Negative straight leg test. Skin: No rash Psychiatric: Slightly anxious. Const Vital Signs: 03/15/21 08:27 Temperature 96.9 F L Temperature Source Temporal Pulse Rate 59 L Respiratory Rate 17 Blood Pressure 144/95 H Blood Pressure Mean 111 Pulse Ox 99 Oxygen Delivery Method Room Air MDM MDM MDM Narrative Medical decision making narrative: Patient has an unremarkable exam without any signs or symptoms of cauda equina. I will treat him symptomatically. Discharge Plan Triage Chief Complaint: Back ED Provider: Lyndon Presley Dx/Rx/DC Orders Clinical Impression: Acute lumbar myofascial strain Instructions: Back Safety: Bending, Back Safety: Lifting, ED Back Sprain/Strain Prescriptions: New hydrocodone-acetaminophen 5-325 mg tablet 1 tab PO Q6H 3 Days Qty: 12 RF: 0 tizanidine 4 mg tablet 4 mg PO BID PRN (Reason: muscle spasticity) Qty: 14 RF: 0 methylprednisolone [Medrol (Jaspreet)] 4 mg tablets,dose pack 4 mg PO DAILY.TCU Qty: 21 RF: 0 No Action acyclovir [Zovirax] 400 MG tablet 800 mg PO Q4H RF: 0 prednisone 20 MG tablet 20 mg PO BIDCM Qty: 6 RF: 0 epinephrine 0.3 MG syringe 0.3 mg IM X1 Qty: 1 RF: 1 Primary Care Provider: Lyndon Sarabia Referrals: Lyndon Sarabia MD [Primary Care Provider] - 3-5 Days Disposition Disposition: Home, Self Care
[2021-03-15] MEDS: Orphenadrine 60 MG/2 ML Ampul IM (08:49)
[2021-03-15] MEDS: HYDROmorphone 0.5 MG/0.5 ML SYRINGE IM (08:49)
== END 2021-03-15 09:32 | disposition home or self-care (01) ==
LOC: ED 08:50
PROVIDERS: Emergency Provider Emergency Medicine; PCP Family Medicine
DX: S39.012A Strain of muscle, fascia and tendon of lower back, initial encounter (principal); X58.XXXA Exposure to other specified factors, initial encounter
CPT/HCPCS: 96372; 99282

== ENCOUNTER → 2021-03-17 12:17 | Outpatient (CLI) | payer BC, SELFPAY ==
--- NOTE | 2021-03-17 12:20 | RAD_ITS ---
INDICATION: DDD EXAMINATION/TECHNIQUE: X-RAY - XR Spine Lumbar 2 or 3 Views COMPARISON: 12/23/2017. FINDINGS: Straightening of the normal alignment of the columns of the lumbar spine is visualized. No evidence of spondylolisthesis is seen. Vertebral bodies demonstrate no evidence of compression deformity, multilevel degenerative endplate changes with subtle osteophyte formation seen. Decreased intervertebral disc height visualized most prominent at L5-S1. Oblique images demonstrate no evidence of pars interarticularis fracture. RAD/Lumbar Spine 2 or 3 Views IMPRESSION: Degenerative bone changes, no acute osseous abnormality is seen. Electronically Signed: Cresencio Gutierrez MD at 14:00 EDT Tel , Service support ,
== END ==
PROVIDERS: PCP Family Medicine; Referring Provider Nurse Practitioner Family; Visit Provider Nurse Practitioner Family
DX: M51.37 Other intervertebral disc degeneration, lumbosacral region (principal); M51.26 Other intervertebral disc displacement, lumbar region; M54.16 Radiculopathy, lumbar region; M47.817 Spondylosis without myelopathy or radiculopathy, lumbosacral region
CPT/HCPCS: 72100

== ENCOUNTER → 2021-06-02 16:38 | Outpatient (CLI) | payer BC, SELFPAY ==
[2021-06-02 18:18] LABS: Anion Gap 5 (5-15); BUN 18 mg/dL (7-18); BUN/Creat Ratio 15.3 RATIO (10-20); Calcium,Total 9.2 mg/dL (8.5-10.1); Chloride 105 mmol/L (98-107); Cholesterol 256 mg/dL (200); Creatinine, Serum 1.18 mg/dL (0.70-1.30); EST Glomerular Filtration Rate 71 mL/min (>60); Est Glom Filt Rate - Afr Amer 86 mL/min (>60); Glucose 87 mg/dL (74-106); High Density Lipoprotein 45 mg/dL; Potassium 3.8 mmol/L (3.5-5.1); Sodium Level 139 mmol/L (136-145); Triglycerides 109 mg/dL; Very Low Density Lipoprotein 22 mg/dL (5-40)
== END ==
PROVIDERS: PCP Family Medicine; Referring Provider Family Medicine; Visit Provider Family Medicine
DX: Z00.00 Encounter for general adult medical examination without abnormal findings (principal); E29.1 Testicular hypofunction
CPT/HCPCS: 36415; 80048; 80061; 84153; 84403; G0103

== ENCOUNTER → 2021-06-30 11:44 | Outpatient (CLI) | payer BC, SELFPAY ==
[2021-06-30 15:52] LABS: Cholesterol 213 mg/dL (200); High Density Lipoprotein 39 mg/dL; Triglycerides 105 mg/dL; Very Low Density Lipoprotein 21 mg/dL (5-40)
== END ==
PROVIDERS: PCP Family Medicine; Referring Provider Family Medicine; Visit Provider Family Medicine
DX: Z00.00 Encounter for general adult medical examination without abnormal findings (principal); E29.1 Testicular hypofunction
CPT/HCPCS: 36415; 80061; 84403

== ENCOUNTER → 2021-07-12 | Outpatient (CLI) | payer BC, SELFPAY | END | disposition home or self-care (01) | LOC: LABSPEC 15:15 | PROVIDERS: PCP Family Medicine; Visit Provider Family Medicine | DX: Z20.822 Contact with and (suspected) exposure to COVID-19 (principal); U07.1 COVID-19 | CPT/HCPCS: 87635; U0005; U0003 ==

== ENCOUNTER → 2021-11-08 | Outpatient (CLI) | payer BC, SELFPAY ==
[2021-11-08 18:38] LABS: Anion Gap 9 (5-15); BUN 13 mg/dL (7-18); BUN/Creat Ratio 12.6 RATIO (10-20); Chloride 104 mmol/L (98-107); Creatinine, Serum 1.03 mg/dL (0.70-1.30); EST Glomerular Filtration Rate 83 mL/min (>60); Est Glom Filt Rate - Afr Amer 101 mL/min (>60); Glucose 102 mg/dL (74-106); Potassium 4.4 mmol/L (3.5-5.1); Sodium Level 142 mmol/L (136-145)
== END | disposition home or self-care (01) ==
LOC: MFPLAB 16:22
PROVIDERS: PCP Family Medicine; Referring Provider Family Medicine; Visit Provider Family Medicine
DX: E29.1 Testicular hypofunction (principal); E78.5 Hyperlipidemia, unspecified
CPT/HCPCS: 36415; 80048; 84403

== ENCOUNTER → 2021-11-15 | Outpatient (CLI) | payer BC, SELFPAY | END | disposition home or self-care (01) | LOC: MTLAB 16:22 | PROVIDERS: PCP Family Medicine; Referring Provider Family Medicine; Visit Provider Family Medicine | DX: E29.1 Testicular hypofunction (principal) | CPT/HCPCS: 36415; 84403 ==

== ENCOUNTER → 2021-12-28 | Outpatient (CLI) | payer BC, SELFPAY | END | disposition home or self-care (01) | LOC: MFPLAB 15:59 | PROVIDERS: PCP Family Medicine; Referring Provider Family Medicine; Visit Provider Family Medicine | DX: E29.1 Testicular hypofunction (principal) | CPT/HCPCS: 36415; 84403 ==

== ENCOUNTER → 2022-02-15 | Outpatient (CLI) | payer BC, SELFPAY ==
[2022-02-15 18:36] LABS: Thyroid Stim Hormone (TSH) 2.26 uIU/mL (0.358-3.74)
== END | disposition home or self-care (01) ==
LOC: MFPLAB 16:41
PROVIDERS: PCP Family Medicine; Visit Provider Family Medicine
DX: E29.1 Testicular hypofunction (principal)
CPT/HCPCS: 36415; 84403; 84443

== ENCOUNTER → 2022-08-27 | Outpatient (CLI) | payer BC, SELFPAY ==
--- NOTE | 2022-08-27 16:41 | RAD_ITS ---
EXAM: XR THORACIC SPINE, 2 VIEWS CLINICAL INDICATION: PAIN TECHNIQUE: Frontal and lateral views of the thoracic spine. This report was created using [employer] report generation technology. COMPARISON: None. FINDINGS: VERTEBRAE: Liver lesions are seen overlying the midthoracic spine. Preserved vertebral body height. No fracture. No spondylolisthesis. Preservation of the normal thoracic kyphosis. No significant facet arthropathy. DISC SPACES: There are mild degenerative changes with disc space narrowing. Impression there are mild degenerative changes with disc space narrowing. There is no acute osseous abnormality. RAD/Thoracic Spine 2 Views IMPRESSION: No acute findings in the thoracic spine. Electronically Signed: Leroy Braun MD at 0:03 EST ,
== END | disposition home or self-care (01) ==
LOC: MTRAD 16:39
PROVIDERS: PCP Family Medicine; Referring Provider Nurse Practitioner Family; Visit Provider Nurse Practitioner Family
DX: M54.6 Pain in thoracic spine (principal)
CPT/HCPCS: 72070

== ENCOUNTER → 2022-09-06 | Outpatient (CLI) | payer BC, SELFPAY | END | disposition home or self-care (01) | PROVIDERS: PCP Family Medicine; Referring Provider Specialist; Visit Provider Specialist | DX: T63.461D Toxic effect of venom of wasps, accidental (unintentional), subsequent encounter (principal); T63.441D Toxic effect of venom of bees, accidental (unintentional), subsequent encounter | CPT/HCPCS: 36415; 83520 ==

== ENCOUNTER → 2022-09-12 | Outpatient (CLI) | payer BC, SELFPAY ==
--- NOTE | 2022-09-12 11:29 | STRESSREP ---
Stress Test Report Date: 09-12-2022 Procedure: Exercise tolerance test/imaging study Indications: Chest pain; status post COVID-19; ANI Consent: Per the patient Procedure: The patient exercised on a Michael protocol for 10 minutes completing Stage III and 1 minute of Stage IV achieving a peak heart rate of 166 bpm (94% predicted maximal heart rate) with resting blood pressure of 122/92 mmHg and a peak blood pressure 152/80 mmHg and a peak MET capacity of 13 METs. The baseline ECG demonstrated normal sinus rhythm. The peak exercise ECG demonstrated no obvious ECG changes. There were no cardiac dysrhythmias pretest, during exercise, or recovery. The functional capacity was considered good. There was no complaint of chest discomfort during exercise or recovery. The examination was discontinued secondary to dyspnea. Impression: 1. Technically adequate (percent predicted maximal heart rate greater than 85%) exercise tolerance test 2. Peak exercise ECG with no obvious ECG changes 3. There were no cardiac dysrhythmias pretest, during exercise, or recovery 4. Nuclear images pending Myocardial perfusion imaging study: Technique: The patient was injected with 14.1 mCi of technetium 99m Cardiolite and subsequently rest SPECT Cardiolite nuclear imaging was obtained in the horizontal long, vertical long, and short axis views. The patient exercised on a Michael protocol for 10 minutes completing Stage III and 1 minute of Stage IV achieving a peak heart rate of 166 bpm (94% predicted maximal heart rate) with resting blood pressure of 122/92 mmHg and a peak blood pressure 152/80 mmHg and a peak MET capacity of 13 METs. The patient was injected with 44.8 mCi of technetium 99m Cardiolite and subsequently stress SPECT Cardiolite nuclear imaging was obtained in the horizontal long, vertical long, and short axis views. A gated Cardiolite study at peak stress was not obtained. Interpretation: Rest and stress SPECT Cardiolite nuclear imaging status post realignment, normalization, and attenuation correction, demonstrates the appearance of relative uniform tracer uptake and myocardial perfusion appearing within normal limits. Impression: 1. Rest and stress SPECT Cardiolite nuclear imaging demonstrate relative uniform tracer uptake and myocardial perfusion appearing within normal limits. 2. The gated Cardiolite study was not obtained. This note was generated with [employer]ation software. It may contain incorrect words, spelling, and punctuation that were not noted in checking the note before signing.
== END | disposition home or self-care (01) ==
PROVIDERS: PCP Family Medicine; Referring Provider Family Medicine; Visit Provider Family Medicine
DX: R07.9 Chest pain, unspecified (principal)
CPT/HCPCS: 78452; 93017; A9500; A4216

== ENCOUNTER → 2022-11-09 | Outpatient (CLI) | payer BC, SELFPAY ==
[2022-11-09 15:34] LABS: Absolute Lymphocyte Count 1.41 X10^3/uL (0.83-4.51); Absolute Neutrophil Count 4.1 X10^3/uL (2.0-7.7); Basophil# 0.03 X10^3/uL; Basophil% 0.5 % (0-1); Eosinophil# 0.06 X10^3/uL; Hematocrit 43.7 % (40-54); Hemoglobin 13.2 g/dL (13.0-16.5); Lymphocyte # 1.41 X10^3/ul (0.83-4.51); Lymphocyte % 22.5 % (19-41); Mean Corp Hgb Conc 30.2 g/dL (32-36); Mean Corpuscular Hgb 23.9 pg (27.0-32.0); Mean Corpuscular Volume 79.2 fL (80-94); Mean Platelet Vol. 9.4 fl (6.2-12.0); Monocyte# 0.68 X10^3/uL; Monocyte% 10.8 % (0-10); NRBC Flagged by Analyzer 0 % (0-5); Neutrophil # 4.06 X10^3/uL (2.7-7.7); Neutrophil % 64.7 % (47-70); Platelet Count 242 K/mm3 (150-450); RBC Distribution Width CV 16.1 % (11.6-14.6); RBC Distribution Width SD 45.6 fl (35.1-43.9); Red Blood Count 5.52 M/mm3 (4.6-6.2); White Blood Count 6.3 K/mm3 (4.4-11.0)
[2022-11-09 16:08] LABS: Anion Gap 2 (5-15); BUN 13 mg/dL (7-18); BUN/Creat Ratio 11.8 RATIO (10-20); Calcium,Total 9.2 mg/dL (8.5-10.1); Chloride 108 mmol/L (98-107); EST Glomerular Filtration Rate 77 mL/min (>60); Est Glom Filt Rate - Afr Amer 93 mL/min (>60); Glucose 118 mg/dL (74-106); Potassium 3.8 mmol/L (3.5-5.1); Sodium Level 138 mmol/L (136-145)
== END | disposition home or self-care (01) ==
LOC: MFPLAB 12:01
PROVIDERS: PCP Family Medicine; Visit Provider Family Medicine
DX: E29.1 Testicular hypofunction (principal)
CPT/HCPCS: 36415; 80048; 84153; 84403; 85025; G0103

== ENCOUNTER → 2023-03-14 | Outpatient (CLI) | payer BC, SELFPAY ==
[2023-03-14 15:24] LABS: Absolute Lymphocyte Count 1.55 X10^3/uL (0.83-4.51); Absolute Neutrophil Count 8.8 X10^3/uL (2.0-7.7); Basophil# 0.03 X10^3/uL; Basophil% 0.3 % (0-1); Eosinophil# 0.01 X10^3/uL; Eosinophils% 0.1 % (0-5); Hematocrit 42.3 % (40-54); Hemoglobin 13.3 g/dL (13.0-16.5); Lymphocyte # 1.55 X10^3/ul (0.83-4.51); Lymphocyte % 13.6 % (19-41); Mean Corp Hgb Conc 31.4 g/dL (32-36); Mean Corpuscular Hgb 24.3 pg (27.0-32.0); Mean Corpuscular Volume 77.3 fL (80-94); Mean Platelet Vol. 9.2 fl (6.2-12.0); Monocyte# 0.92 X10^3/uL; NRBC Flagged by Analyzer 0 % (0-5); Neutrophil # 8.81 X10^3/uL (2.7-7.7); Platelet Count 280 K/mm3 (150-450); RBC Distribution Width CV 16.4 % (11.6-14.6); RBC Distribution Width SD 45.6 fl (35.1-43.9); Red Blood Count 5.47 M/mm3 (4.6-6.2); White Blood Count 11.4 K/mm3 (4.4-11.0)
[2023-03-14 16:38] LABS: Anion Gap 9 (5-15); BUN 16 mg/dL (7-18); BUN/Creat Ratio 14.3 RATIO (10-20); Calcium,Total 8.8 mg/dL (8.5-10.1); Chloride 105 mmol/L (98-107); Cholesterol 207 mg/dL (200); Creatinine, Serum 1.12 mg/dL (0.70-1.30); EST Glomerular Filtration Rate 75 mL/min (>60); Est Glom Filt Rate - Afr Amer 91 mL/min (>60); Glucose 85 mg/dL (74-106); High Density Lipoprotein 29 mg/dL; Potassium 3.6 mmol/L (3.5-5.1); Sodium Level 138 mmol/L (136-145); Triglycerides 235 mg/dL; Very Low Density Lipoprotein 47 mg/dL (5-40)
== END | disposition home or self-care (01) ==
LOC: MFPLAB 14:10
PROVIDERS: PCP Family Medicine; Visit Provider Family Medicine
DX: Z00.00 Encounter for general adult medical examination without abnormal findings (principal); E29.1 Testicular hypofunction
CPT/HCPCS: 36415; 80048; 80061; 84403; 85025

== ENCOUNTER 2023-06-25 07:33 | Day surgery (SDC) | payer BC, SELFPAY ==
[2023-06-25 07:56] VITALS: BP 136/93; PULSE 79; RESP 18; TEMP 36.6; O2SAT 98; BMI 31.8
[2023-06-25] MEDS: Lactated Ringers 1,000 ML 15 ML IV (07:59)
--- NOTE | 2023-06-25 08:16 | HP.PCM_ITS ---
HPI - General HPI Narrative ALLEGRA GUAJARDO, is a 47 M who presents for screening colonoscopy. The patient denies any abdominal pain or blood in the stool. He does not have any family history of colon cancer. [facility] Medical History (Updated 06/20/23 @ 12:09 by Felisha Bronson) Alcohol use Arthritis Chronic pain CPAP (continuous positive airway pressure) dependence Heartburn History of deviated nasal septum History of stress test History of ulceration Low iron Migraine headache Non-smoker Wears glasses Home Medications epinephrine 0.3 mg/0.3 mL injection, auto-injector 0.3 mg (0.3 mL) IM X1 ##1 02/19/16 [Rx Last Taken Unknown] ferrous sulfate 325 mg (65 mg iron) tablet 325 mg PO DAILY 04/16/23 [History Last Taken Unknown] hydroxychloroquine 200 mg tablet (Plaquenil) 200 mg PO BID 04/16/23 [History Last Taken Unknown] testosterone cypionate 200 mg/mL intramuscular oil 100 mg IM Q2W 04/16/23 [History Last Taken Unknown] Allergy/AdvReac Type Severity Reaction Status Date / Time sulfamethoxazole Allergy Mild Rash Verified 06/25/23 07:55 [From Bactrim] trimethoprim [From Bactrim] Allergy Mild Rash Verified 06/25/23 07:55 acetaminophen Allergy Other Verified 06/25/23 07:55 [From Darvocet-N] dichloralphenazone Allergy Unknown Verified 06/25/23 07:55 [From Midrin] isometheptene [From Midrin] Allergy Unknown Verified 06/25/23 07:55 pentazocine [From Talacen] Allergy Other Verified 06/25/23 07:55 propoxyphene Allergy Other Verified 06/25/23 07:55 [From Darvocet-N] Sulfa (Sulfonamide Allergy Rash Verified 06/25/23 07:55 Antibiotics) venom-honey bee Allergy Anaphylaxis Verified 06/25/23 07:55 [bee venom (honey bee)] Surgical History (Updated 06/20/23 @ 12:09 by Felisha Bronson) History of shoulder surgery History of surgery Hx of discectomy Social History Smoking Status: Never smoker Past Medical/Surgical History Planned Operation Planned Operative Procedure/s: CSCOPE OA Previous Hospitalizations/Surgeries HX Hospitalizations: No Any Problems With Anesthesia: No You/Your Family Experience Fever (Hyperthermia) With Anes: No Cholinesterase deficiency: No Cardiovascular Hx Hypertension: No Respiratory Hx Sleep Apnea: Yes CPAP: Yes BIPAP: No Hx Respiratory Tract Infection/Cold (presently): No Result (for STOP score): Positive Smoking Status: Never smoker Neurological Hx Seizures: No (migraines) Hx Back Injury/Pain: Yes Does patient have nerve stimulator: Yes Reproduction : No Miscellaneous Recent Exposure to Contagious Disease: No Allergies sulfamethoxazole [From Bactrim] Allergy (Mild, Verified 06/25/23 07:55) Rash trimethoprim [From Bactrim] Allergy (Mild, Verified 06/25/23 07:55) Rash acetaminophen [From Darvocet-N] Allergy (Verified 06/25/23 07:55) Other dichloralphenazone [From Midrin] Allergy (Verified 06/25/23 07:55) Unknown isometheptene [From Midrin] Allergy (Verified 06/25/23 07:55) Unknown pentazocine [From Talacen] Allergy (Verified 06/25/23 07:55) Other propoxyphene [From Darvocet-N] Allergy (Verified 06/25/23 07:55) Other Sulfa (Sulfonamide Antibiotics) Allergy (Verified 06/25/23 07:55) Rash venom-honey bee [bee venom (honey bee)] Allergy (Verified 06/25/23 07:55) Anaphylaxis Discharge Is Pt Admitted From a Detention, or a Penitentiary: No After D/C, Where Do you Plan to Go: Return Home Vital Signs Vital Signs Vital Signs: 06/25/23 07:56 06/25/23 07:56 Temperature 97.8 F Temperature Source Temporal Pulse Rate 79 Respiratory Rate 18 Respiratory Pattern Normal Blood Pressure 136/93 H Blood Pressure Mean 107 Blood Pressure Source Monitor Blood Pressure Position Sitting Blood Pressure Location Right Arm Pulse Ox 98 Oxygen Delivery Method Room Air Weight Weight: 240 lb 15.444 oz Body Mass Index (BMI) 31.8 Physical Exam Const alert and oriented x3 HEENT normocephalic Eyes PERRL Resp normal respiratory effort and normal air movement Cardio regular rate and regular rhythm GI soft to palpation, non-tender and non-distended Extremity normal to inspection Assessment & Plan Assessment/Plan (1) Encounter for screening for malignant neoplasm of colon: PLAN: I explained endoscopy in detail to the patient. I explained the risks including but not limited to stroke or heart attack with anesthesia, perforation of the GI tract, bleeding, infection. I explained that any of these could necessitate further emergency surgery. The patient understands and all questions were answered sufficiently. The patient wishes to proceed with procedure. Fili Caba MD Pager: [facility] [address] [place] [address] [address] [place] [address] Office: Surgery Risks - Colonoscopy Risks Include but are not Limited To: Risks include but are not limited to: Bleeding, perforation requiring further surgery, inability to complete colonoscopy requiring barium enema.
[2023-06-25 08:45] VITALS: BP 101/75; BP 136/93; PULSE 83; RESP 16; TEMP 36.4; O2SAT 94
--- NOTE | 2023-06-25 08:48 | OP.COLON_ITS ---
Patient Name: Gamal Marion Procedure Date: 06/25/2023 8:21 AM Date of : 1975 Age: 47 Procedure: Colonoscopy Indications: Screening for colorectal malignant neoplasm Providers: Fili Caba MD Medicines: Monitored Anesthesia Care Patient Profile: This is a 47 year old male. Refer to note in patient chart for documentation of history and physical. Last Colonoscopy: none. The patient's first colonoscopy is today. Complications: No immediate complications. Procedure: Pre-Anesthesia Assessment: - Prior to the procedure, a History and Physical was performed, and patient medications and allergies were reviewed. The patient's tolerance of previous anesthesia was also reviewed. The risks and benefits of the procedure and the sedation options and risks were discussed with the patient. All questions were answered, and informed consent was obtained. Prior Anticoagulants: The patient has taken no anticoagulant or antiplatelet agents. After reviewing the risks and benefits, the patient was deemed in satisfactory condition to undergo the procedure. After I obtained informed consent, the scope was passed under direct vision. Throughout the procedure, the patient's blood pressure, pulse, and oxygen saturations were monitored continuously. The pediatric colonoscope was introduced through the anus and advanced to the cecum, identified by appendiceal orifice and ileocecal valve. The colonoscopy was performed without difficulty. The patient tolerated the procedure well. The quality of the bowel preparation was good. The ileocecal valve, appendiceal orifice, and rectum were photographed. Scope In: 8:30:03 AM Scope Withdrawal Time 0 hours 6 minutes 30 seconds Scope Out: 8:40:34 AM Total Procedure Duration Time 0 hours 10 minutes 31 seconds Findings: The entire examined colon appeared normal on direct and retroflexion views. Impression: - The entire examined colon is normal on direct and retroflexion views. - No specimens collected. Recommendation: - Discharge patient to home. - Resume previous diet. - Continue present medications. - Repeat colonoscopy in 10 years for screening purposes. Procedure Code(s): --- Professional --- 78360, Colonoscopy, flexible; diagnostic, including collection of specimen(s) by brushing or washing, when performed (separate procedure) Diagnosis Code(s): --- Professional --- Z12.11, Encounter for screening for malignant neoplasm of colon CPT copyright 2021 [employer]. All rights reserved. The codes documented in this report are preliminary and upon city library director review may be revised to meet current compliance requirements. Fili Caba MD 06/25/2023 8:48:27 AM This report has been signed electronically. Number of Addenda: 0 Note Initiated On: 06/25/2023 8:21 AM
--- NOTE | 2023-06-25 08:48 | OP.CCLET_ITS ---
06/25/2023 Lyndon Sarabia MD [address] [phone] Re : Colonoscopy procedure for Gamal Marion Dear Dr. Sarabia This procedure was performed on Sunday, June 25, 2023. My impressions and recommendations are as follows: Impressions : - The entire examined colon is normal on direct and retroflexion views. - No specimens collected. Recommendations : - Discharge patient to home. - Resume previous diet. - Continue present medications. - Repeat colonoscopy in 10 years for screening purposes. My findings are described in the full procedure note, which is enclosed. If I can be of further assistance, please feel free to contact me at Doctor phone number(s): , Work: . Sincerely, Fili Caba MD 06/25/2023 8:48:27 AM This report has been signed electronically.
[2023-06-25 08:50] VITALS: BP 105/76; BP 136/93; PULSE 81; RESP 18; O2SAT 95
[2023-06-25 08:55] VITALS: BP 101/75; BP 136/93; PULSE 82; RESP 18; TEMP 37.2; O2SAT 96
[2023-06-25 09:08] VITALS: BP 136/93
== END 2023-06-25 09:12 | disposition home or self-care (01) ==
LOC: EN 07:34 → AC 07:35
PROVIDERS: PCP Family Medicine; Referring Provider Family Medicine; Visit Provider Surgery
PROC: 0DJD8ZZ Inspection of Lower Intestinal Tract, Via Natural or Artificial Opening Endoscopic (ICD-10-PCS; CPT 45378; principal; 2023-06-25 08:40)
DX: Z12.11 Encounter for screening for malignant neoplasm of colon (principal); G89.29 Other chronic pain; E61.1 Iron deficiency
CPT/HCPCS: 45378; J7120; J2405

== ENCOUNTER → 2023-09-04 | Outpatient (CLI) | payer BC, SELFPAY ==
--- OUTSIDE RECORDS SUMMARY | 2023-09-04 11:59 | XMS RPT_ITS | CCD ---
Author Name Unknown Address [address] [place] [address] Organization [facility] Care Team Providers Care Equal Opportunity Assistant Name Role Phone Irvin WHATLEYNEulalioANYIMichelle Unavailable [phone] CROW LIMA Unavailable Unavailable CELSO HEATH Unavailable Unavailable CROW PEREZ Primary Care Unavailable LIZBETH MOYA, TERI Consulting Unavailable GILL DO CATHY K Attending Unavailable GILLCORY PRITCHETT CATHY K Admitting Unavailable CHUY MONTOYA PA-C Consulting Unavailqueta ESTRADA MD, DR DARLING Consulting Unavailab CROW Medina Consulting Unavailable Allergies Allergy Classification Reported Allergen(s) Allergy Type Date of Onset Reaction(s) Facility (1 source) acetaminophen / dichloralphenazone / isometheptene Drug Allergy 04-11-20 17 [facility] Work Phone: (1 source) acetaminophen / pentazocine Drug Allergy 04-11-20 17 [facility] Work Phone: (1 source) acetaminophen / propoxyphene Drug Allergy 04-11-20 17 [facility] Work Phone: (1 source) Bee/Wasp/Ant venom; Translations: [BEE STINGS] allergy to substance 04-11-20 17 [facility] Work Phone: (1 source) sulfamethoxazole / trimethoprim Drug Allergy 04-11-20 17 hives [facility] Work Phone: (1 source) Acetaminophen Drug Allergy 06-13-20 [facility] Repository (1 source) dichloralphenazone Drug Allergy 06-13-20 [facility] Repository (1 source) isometheptene Drug Allergy 06-13-20 [facility] Repository (1 source) Nortriptyline Drug Allergy 06-13-20 [facility] Repository (1 source) Pentazocine Drug Allergy 06-13-20 [facility] Repository (1 source) Propoxyphene Drug Allergy 06-13-20 [facility] Repository (1 source) Sulfamethoxazole Drug Allergy 06-13-20 [facility] Repository (1 source) Trimethoprim Drug Allergy 06-13-20 [facility] Repository (1 source) bee venom protein (honey bee) Drug allergy (disorder) 06-13-20 [facility] Repository (1 source) formoterol Drug Allergy [facility] Repository (1 source) Midodrine Drug Allergy [facility] Repository (1 source) Sulfamethoxazole / Trimethoprim Drug Allergy [facility] Repository Medications Completed/Discontinued Medications Medication Drug Class(es) Dates Sig (Normalized) Sig (Original) Drug Treatment Unknown - unknown (1 source) No information available. Problems Active Problems Problem Classification Problem Date Documented Date Episodic/Chronic Nonspecific chest pain (3 sources) Chest pain, unspecified; Translations: [CHEST PAIN UNSPECIFIED] Onset: 08-31-2022 Episodic Other aftercare (1 source) Surgical follow-up; Translations: [Encounter for other specified surgical aftercare] Onset: 10-17-2017 10-18-2017 Episodic Spondylosis; intervertebral disc disorders; other back problems (2 sources) Lumbar disc prolapse with radiculopathy; Translations: [Degeneration of lumbosacral intervertebral disc] Onset: 04-11-2017 04-11-2017 Chronic Past or Other Problems Problem Classification Problem Date Documented Da te Episodic/Chronic Unclassified (1 source) Problem Results Test Name Value Interpretation Reference Range Facil ity Vital Signs Date Time Vital Sign Value Performing Clinician Facility NEGATED: Highlighted [id number] 13:090400 BMI (Body Mass Index) 30.98 kg/m2 Sherlyn Jaimes LPN [facility] Work Phone: NEGATED: Highlighted [id number] 13:09-0400 BP Diastolic 66 mm[Hg] Sherlyn Winklestine PLUG MACHINE OPERATOR [facility] Work Phone: NEGATED: Highlighted [id number] 13:09-0400 BP Systolic 102 mm[Hg] Sherlyn Winklestine PLUG MACHINE OPERATOR [facility] Work Phone: NEGATED: Highlighted [id number] 13:09-0400 Height 185.42 cm Sherlyn Winklestine PLUG MACHINE OPERATOR [facility] Work Phone: NEGATED: Highlighted [id number] 13:09-0400 Height 185 cm Sherlyn Winklestine PLUG MACHINE OPERATOR [facility] Work Phone: NEGATED: Highlighted [id number] 13:09-0400 Pulse (Heart Rate) 68 /min Sherlyn Winklestine PLUG MACHINE OPERATOR [facility] Work Phone: NEGATED: Highlighted [id number] 13:09-0400 Weight 106.14 kg Sherlyn Winklestine PLUG MACHINE OPERATOR [facility] Work Phone: NEGATED: Highlighted [id number] 13:09-0400 Weight 106 kg Sherlyn Winklestine PLUG MACHINE OPERATOR [facility] Work Phone: Encounters Encounter Date Encounter Type Care Provider Facility Start: 08-31-2022 End: 08-31-2022 ambulatory CROW Alegre Facility:[facility] Start: 06-13-2018 End: 06-13-2018 Emergency department patient visit CROW LIMA Facility: Start: 12-26-2017 End: 12-27-2017 Patient encounter procedure Michellejason Bryan EMT I/85-PHOTOGRAPH ENLARGER Work Phone: [facility] Work Phone: Procedures Date Procedure Procedure Detail Performing Clinician Start: 12-26-2017 End: 12-27-2017 Blood pressure within normal parameters - no follow-up required Michelle Bryan EMT I/85-PHOTOGRAPH ENLARGER Work Phone: Start: 12-26-2017 End: 12-27-2017 BMI documented as above normal parameters - follow-up documented Michelle Bryan EMT I/85-PHOTOGRAPH ENLARGER Work Phone: Start: 12-26-2017 End: 12-27-2017 Current medications documented Michelle Bryan EMT I/85-PHOTOGRAPH ENLARGER Work Phone: Start: 12-26-2017 End: 12-27-2017 Pain assessment documented as positive - follow-up documented Michelle Bryan EMT I/85-PHOTOGRAPH ENLARGER Work Phone: Start: 12-26-2017 End: 12-27-2017 Tobacco non-user Michelle Bryan EMT I/85-PHOTOGRAPH ENLARGER Work Phone: Plan of Treatment Date Care Activity Detail Author Start: 01-06-2018 End: 01-06-2018 Appointment Appointment [facility] Work Phone: Start: 12-26-2017 End: 12-26-2017 Mri spinal canal lumbar w/o & w/contr matrl MRI lumbar with and without contrast [facility] Work Phone: Immunizations Immunization Date Immunization Notes Care Provider Mirella gayle No information available. Sherlyn Jaimes LPN [facility] Work Phone: Payers Date Payer Category Payer Unknown [id number] 1957 Unknown [id number] Unknown [id number] Social History Date Type Detail Facility Start: 12-27-2017 End: 12-27-2017 Assertion Unknown if ever smoked [facility] Work Phone: Instructions Instruction Description Start Date CompletedPatient advised to follow-up with Primary Care Physician for BMI management. Advance Directives There may be information available, but it has not been provided by the sender. No Advanced Directives Records FoundNo Advanced Directives Records FoundNo Advanced Directives Records Found Assessments There may be information available, but it has not been provided by the sender. Review of System There may be information available, but it has not been provided by the sender. Family History There may be information available, but it has not been provided by the sender.No Family History Records FoundNo Family History Records FoundNo Family History Records Found Summary Purpose Additional Source Comments (unrecognized sect ion and content) No Status Records FoundNo Status Records FoundNo Status Records Found INFORMATION SOURCE (unrecogn ized section and content) DATE CREATED AUTHOR AUTHOR'S ORGANIZ ATION 11/10/2019 [facility] DATE CREATED AUTHOR AUTHOR'S ORGANIZ ATION 09/05/2022 [facility] FOR RECORDS PERTAINING TO PATIENTS WHO ARE OR HAVE BEEN ENROLLED IN A CHEMICAL DEPENDENCY/SUBSTANCEABUSE PROGRAM, SOME INFORMATION MAY BE OMITTED. This clinical summary was aggregated from multiple sources. Caution should be exercised in using it in the provision of clinical care. This summary normalizes information from multiple sources, and as a consequence, information in this document may materially change the coding, format and clinical context of patient data. In addition, data may be omitted in some cases. CLINICAL DECISIONS SHOULD BE BASED ON THE PRIMARY CLINICAL RECORDS. [employer] [facility]. provides no warranty or guarantee of the accuracy or completeness of information in this document.
[2023-09-04 15:08] LABS: Absolute Lymphocyte Count 1.34 X10^3/uL (0.83-4.51); Basophil# 0.02 X10^3/uL; Basophil% 0.2 % (0-1); Eosinophil# 0.05 X10^3/uL; Eosinophils% 0.6 % (0-5); Hemoglobin 14.2 g/dL (13.0-16.5); Lymphocyte # 1.34 X10^3/ul (0.83-4.51); Lymphocyte % 16.6 % (19-41); Mean Corp Hgb Conc 30.9 g/dL (32-36); Mean Corpuscular Hgb 24.9 pg (27.0-32.0); Mean Corpuscular Volume 80.7 fL (80-94); Mean Platelet Vol. 9.5 fl (6.2-12.0); Monocyte# 0.63 X10^3/uL; Monocyte% 7.8 % (0-10); NRBC Flagged by Analyzer 0 % (0-5); Neutrophil # 6.01 X10^3/uL (2.7-7.7); Neutrophil % 74.3 % (47-70); Platelet Count 231 K/mm3 (150-450); RBC Distribution Width CV 16.8 % (11.6-14.6); RBC Distribution Width SD 48.3 fl (35.1-43.9); White Blood Count 8.1 K/mm3 (4.4-11.0)
[2023-09-04 15:28] LABS: PSA,Total- Diagnostic 0.46 ng/mL (0.0-4.0)
== END | disposition home or self-care (01) ==
LOC: MFPLAB 11:41
PROVIDERS: PCP Family Medicine; Visit Provider Family Medicine
DX: E29.1 Testicular hypofunction (principal)
CPT/HCPCS: 36415; 84153; 84403; 85025

== ENCOUNTER → 2023-12-25 | Outpatient (CLI) | payer BC, SELFPAY ==
[2023-12-25 10:43] LABS: Absolute Lymphocyte Count 1.29 X10^3/uL (0.83-4.51); Absolute Neutrophil Count 3.3 X10^3/uL (2.0-7.7); Basophil# 0.02 X10^3/uL; Basophil% 0.4 % (0-1); Eosinophils% 1.9 % (0-5); Hematocrit 46.1 % (40-54); Hemoglobin 14.3 g/dL (13.0-16.5); Lymphocyte # 1.29 X10^3/ul (0.83-4.51); Lymphocyte % 24.1 % (19-41); Mean Corpuscular Hgb 24.5 pg (27.0-32.0); Mean Corpuscular Volume 78.9 fL (80-94); Mean Platelet Vol. 9.4 fl (6.2-12.0); Monocyte# 0.65 X10^3/uL; Monocyte% 12.1 % (0-10); NRBC Flagged by Analyzer 0 % (0-5); Neutrophil # 3.27 X10^3/uL (2.7-7.7); Neutrophil % 60.9 % (47-70); Platelet Count 224 K/mm3 (150-450); RBC Distribution Width CV 15.9 % (11.6-14.6); RBC Distribution Width SD 44.4 fl (35.1-43.9); Red Blood Count 5.84 M/mm3 (4.6-6.2); White Blood Count 5.4 K/mm3 (4.4-11.0)
[2023-12-25 13:04] LABS: AST(SGOT) 39 U/L (15-37); Alanine Aminotransfer ALT/SGPT 61 U/L (16-61); Albumin, Serum 3.9 g/dL (3.2-5.0); Alkaline Phosphatase 84 U/L (45-117); Anion Gap 7 (5-15); BUN 15 mg/dL (7-18); BUN/Creat Ratio 14.2 RATIO (10-20); Calcium,Total 9.1 mg/dL (8.5-10.1); Chloride 105 mmol/L (98-107); Creatinine, Serum 1.06 mg/dL (0.70-1.30); EST Glomerular Filtration Rate 80 mL/min (>60); Est Glom Filt Rate - Afr Amer 97 mL/min (>60); Glucose 100 mg/dL (74-106); PSA,Total - Annual Screen 0.51 ng/mL (0.00-4.00); Potassium 4.1 mmol/L (3.5-5.1); Protein, Total 7.9 g/dL (6.4-8.2); Sodium Level 136 mmol/L (136-145); Thyroid Stim Hormone (TSH) 3.45 uIU/mL (0.358-3.74)
== END | disposition home or self-care (01) ==
LOC: MFPLAB 08:29
PROVIDERS: PCP Family Medicine; Visit Provider Family Medicine
DX: E29.1 Testicular hypofunction (principal); E66.9 Obesity, unspecified
CPT/HCPCS: 36415; 80053; 84153; 84403; 84443; 85025; G0103

== ENCOUNTER → 2024-05-27 | Outpatient (CLI) | payer BC, SELFPAY ==
[2024-05-27 12:18] LABS: Absolute Lymphocyte Count 1.31 X10^3/uL (0.83-4.51); Absolute Neutrophil Count 4.8 X10^3/uL (2.0-7.7); Basophil# 0.04 X10^3/uL; Basophil% 0.6 % (0-1); Eosinophil# 0.07 X10^3/uL; Hematocrit 41.9 % (40-54); Hemoglobin 12.3 g/dL (13.0-16.5); Lymphocyte # 1.31 X10^3/ul (0.83-4.51); Lymphocyte % 18.8 % (19-41); Mean Corp Hgb Conc 29.4 g/dL (32-36); Mean Corpuscular Hgb 21.3 pg (27.0-32.0); Mean Corpuscular Volume 72.6 fL (80-94); Mean Platelet Vol. 9.3 fl (6.2-12.0); Monocyte# 0.77 X10^3/uL; NRBC Flagged by Analyzer 0 % (0-5); Neutrophil # 4.76 X10^3/uL (2.7-7.7); Neutrophil % 68.3 % (47-70); Platelet Count 310 K/mm3 (150-450); RBC Distribution Width CV 17.1 % (11.6-14.6); RBC Distribution Width SD 42.9 fl (35.1-43.9); Red Blood Count 5.77 M/mm3 (4.6-6.2)
[2024-05-27 12:42] LABS: PSA,Total- Diagnostic 0.52 ng/mL (0.0-4.0)
== END | disposition home or self-care (01) ==
LOC: MFPLAB 10:25
PROVIDERS: PCP Family Medicine; Referring Provider Family Medicine; Visit Provider Family Medicine
DX: E29.1 Testicular hypofunction (principal)
CPT/HCPCS: 36415; 84153; 84403; 85025

== ENCOUNTER → 2024-09-23 | Outpatient (CLI) | payer BC, SELFPAY ==
[2024-09-23 17:54] LABS: Absolute Lymphocyte Count 1.42 X10^3/uL (0.83-4.51); Absolute Neutrophil Count 3.7 X10^3/uL (2.0-7.7); Basophil# 0.02 X10^3/uL; Basophil% 0.3 % (0-1); Eosinophil# 0.09 X10^3/uL; Eosinophils% 1.5 % (0-5); Hematocrit 42.1 % (40-54); Hemoglobin 12.7 g/dL (13.0-16.5); Lymphocyte # 1.42 X10^3/ul (0.83-4.51); Lymphocyte % 24.1 % (19-41); Mean Corp Hgb Conc 30.2 g/dL (32-36); Mean Corpuscular Hgb 22.5 pg (27.0-32.0); Mean Corpuscular Volume 74.5 fL (80-94); Mean Platelet Vol. 9.2 fl (6.2-12.0); Monocyte# 0.66 X10^3/uL; Monocyte% 11.2 % (0-10); NRBC Flagged by Analyzer 0 % (0-5); Neutrophil # 3.67 X10^3/uL (2.7-7.7); Neutrophil % 62.6 % (47-70); Platelet Count 234 K/mm3 (150-450); RBC Distribution Width CV 16.9 % (11.6-14.6); RBC Distribution Width SD 44.3 fl (35.1-43.9); Red Blood Count 5.65 M/mm3 (4.6-6.2); White Blood Count 5.9 K/mm3 (4.4-11.0)
== END | disposition home or self-care (01) ==
LOC: MFPLAB 14:12
PROVIDERS: PCP Family Medicine; Referring Provider Family Medicine; Visit Provider Family Medicine
DX: E29.1 Testicular hypofunction (principal)
CPT/HCPCS: 36415; 84403; 85025

== ENCOUNTER → 2024-12-23 | Outpatient (CLI) | payer BC, SELFPAY ==
--- OUTSIDE RECORDS SUMMARY | 2024-12-23 09:13 | XMS RPT_ITS | CCD ---
Author Organization [facility] Inform ion Partnership [facility] Care Team Providers Care Vocational Placement Specialist Name Role Phone Irvin CASANOVA-Michelle DE SANTIAGO Unavailable [phone] LYNDON LIMA Unavailable Unavailable CELSO HEATH Unavailable Unavailable LYNDON PEREZ Primary Care Unavailable TERI NIEVES MD Consulting Unavailable GILL DO, CATHY K Attending Unavailable GILL DO, CATHY K Admitting Unavailable JAN GUILLORY, CHUY Alegre Consulting UnavailDR PHONG Cui MD Consulting Unavailab LYNDON Medina Consulting Unavailable Dr. Lyndon Lima Primary Care Provider [phone] Sheryl Moncada Referring Provider [phone] Sheryl Moncada Other Provider [phone] Dr. Lyndon Greenwood Attending Provider [phone] Lyndon Lima Primary Care Provider Dr. Sheryl Moncada Referring Provider [phone] Sheryl Moncada Other Provider [phone] Dr. Lyndon Greenwood Attending Provider [phone] Lyndon Lima Primary Care Provider Mary Ballard Attending Provider Unavailable Dr. Lyndon Lima Referring Provider Dr. Fili Caba Attending Provider Dr. Fili Caba Other Provider Dr. Lyndon Lima MD Primary Care Provider Dr. Amando Roca MD Attending Provider [phone] Dr. Lyndon Lima MD Attending Provider [phone] Dr. Lyndon Lima MD Referring Provider Lyndon Lima Attending Unavailable Lima, Lyndon Primary Care Unavailable Lima, Lyndon Attending Unavailable Lima, Lyndon Referring Unavailable Cornell, Lyndon Primary Care Unavailable Cornell, Lyndon Primary Care Unavailable Referred, Self Attending Unavailable Referred, Self Referring Unavailable Cornell, Lyndon Primary Care Unavailable Amando Roca Attending Unavailable Cornell, Lyndon Attending Unavailable Lima, Lyndon Referring Unavailable Cornell, Lyndon Primary Care Unavailable Allergies Allergy Classification Reported Allergen(s) Allergy Type Date of Onset Reaction(s) Facility (1 source) acetaminophen / dichloralphenazone / isometheptene Drug Allergy 04-11-20 17 [facility] Work Phone: (1 source) acetaminophen / pentazocine Drug Allergy 04-11-20 17 [facility] Work Phone: (1 source) acetaminophen / propoxyphene Drug Allergy 04-11-20 17 [facility] Work Phone: (1 source) Bee/Wasp/Ant venom; Translations: [BEE STINGS] allergy to substance 04-11-20 17 [facility] Work Phone: (1 source) sulfamethoxazole / trimethoprim Drug Allergy 04-11-20 17 hives [facility] Work Phone: (2 sources) Acetaminophen Drug Allergy 06-13-20 18 [facility] (2 sources) dichloralphenazone Drug Allergy 06-13-20 18 [facility] (2 sources) isometheptene Drug Allergy 06-13-20 18 [facility] (1 source) Nortriptyline Drug Allergy 06-13-20 18 [facility] (2 sources) Pentazocine Drug Allergy 06-13-20 18 [facility] (2 sources) Propoxyphene Drug Allergy 06-13-20 18 [facility] (2 sources) Sulfamethoxazole Drug Allergy 06-13-20 [facility] (2 sources) Trimethoprim Drug Allergy 06-13-20 [facility] (1 source) bee venom protein (honey bee) Drug allergy (disorder) 06-13-20 [facility] (10 sources) Acetaminophen Drug Allergy 03-15-20 Other [facility] (10 sources) dichloralphenazone Drug Allergy 03-15-20 Unknown [facility] (10 sources) isometheptene Drug Allergy 03-15-20 Unknown [facility] (10 sources) Pentazocine Drug Allergy 03-15-20 21 Other [facility] (10 sources) Propoxyphene Drug Allergy 03-15-20 Other [facility] (11 sources) Sulfonamides (Antibiotic); Translations: [Sulfa (Sulfonamide Antibiotics)] Allergy to substance 03-15-20 Rash [facility] (10 sources) venom-honey bee Allergy to substance 03-15-20 Anaphylaxis [facility] (1 source) formoterol Drug Allergy [facility] (1 source) Midodrine Drug Allergy [facility] (1 source) Sulfamethoxazole / Trimethoprim Drug Allergy [facility] (2 sources) Sulfamethoxazole Drug Allergy 06-25-20 [facility] (2 sources) Trimethoprim Drug Allergy 06-25-20 23 [facility] (1 source) venom-honey bee Drug allergy (disorder) 06-25-20 [facility] Rep[facility] Medications Current Medications Medication Drug Class(es) Dates Sig (Normalized) Sig (Original) [id number] 0.3 ml EPINEPHrine 1 mg/ml auto-injector (10 sources) alpha-Adrenergic Agonist, beta-Adrenergic Agonist, Catecholamine Start: 6 inject 0.3 mg by intramuscular injection once Epinephrine 0.3 MG syringe Active 0.3 mg IM ONE TIME February 19, 2016 1:45pm ferrous sulfate 325 mg oral tablet (2 sources) Start: 3 take 1 tablet by mouth once daily Ferrous Sulfate 325 mg (65 mg iron) tablet Active 325 mg PO DAILY April 16, 2023 12:00am hydroxychloroquine sulfate 200 mg oral tablet (2 sources) Antimalarial, Antirheumatic Agent Start: 3 take 1 tablet by mouth twice daily Hydroxychloroquine (Plaquenil) 200 mg tablet Active 200 mg PO TWICE A DAY April 16, 2023 12:00am 1 ml testosterone cypionate 200 mg/ml injection (2 sources) Androgen Start: 3 inject 100 mg by intramuscular injection every other week Testosterone Cypionate 200 mg/mL oil Active 100 mg IM every 2 weeks April 16, 2023 12:00am Start: 04-16-2023 inject 100 mg by int ramuscular injection every other week Testosterone Cypionate Active 100 MG IM every 2 weeks April 15, 2023 11:00pm Completed/Discontinued Medications Medication Drug Class(es) Dates Sig (Normalized) Sig (Original) amoxicillin 500 mg oral tablet (10 sources) Penicillin-class Antibacterial Start: 07-09-2021 End: 07-19-2021 take 1 tablet by mouth twice daily Amoxicillin 500 mg tablet Discontinued 500 mg PO TWICE A DAY 03 05July 09, 2021 1:00am July 18, 2021 1:00am July 19, 2021 1:01am Drug Treatment Unknown - unknown (1 source) No information available. Problems Active Problems Problem Classification Problem Date Documented Date Episodic/Chronic Headache; including migraine (10 sources) Migraine; Translations: [Migraine, unspecified, not intractable, without status migrainosus] 02-12-2019 Chronic Nonspecific chest pain (3 sources) Chest pain, unspecified; Translations: [CHEST PAIN UNSPECIFIED] Onset: 08-31-2022 Episodic Other aftercare (1 source) Surgical follow-up; Translations: [Encounter for other specified surgical aftercare] Onset: 10-17-2017 10-18-2017 Episodic Other endocrine disorders (1 source) Testicular hypofunction; Translations: [Testicular hypofunction] Onset: 10-02-2024 Chronic Other screening for suspected conditions (not mental disorders or infectious disease) (3 sources) Patient encounter status; Translations: [Encounter for screening for malignant neoplasm of colon] 04-16-2023 Episodic Other upper respiratory infections (10 sources) Streptococcal sore throat; Translations: [Streptococcal pharyngitis] 07-09-2021 Episodic Spondylosis; intervertebral disc disorders; other back problems (2 sources) Lumbar disc prolapse with radiculopathy; Translations: [Degeneration of lumbosacral intervertebral disc] Onset: 04-11-2017 04-11-2017 Chronic Sprains and strains (10 sources) Lower back injury; Translations: [Strain of muscle, fascia and tendon of lower back, initial encounter] 03-15-2021 Episodic Past or Other Problems Problem Classification Problem Date Documented Da te Episodic/Chronic Unclassified (1 source) Problem Results Test Name Value Interpretation Reference Range Facility Inital Evaluation (1) - PTon 12-16-2024 Inital Evaluation (1) - PT [facility] [address] [place] [address] / REHABILITATION SERVICES INITIAL EVALUATION MR#: [id number] Acct: [id number] Name: ALLEGRA MARION Rep #: [id number] : 1975 49 From: Juan Mcadams DPT, OCS, CSCS Referring DrPeggy: Self Referred Status: REG RCR Insurance: SELF PAY INSURANCE Patient's Visit Information Visit Information Visit Information: ALLEGRA MARION is a 49 year old M referred to Physical Therapy by Self Referred with a diagnosis of Not physician referred, lateral epicondylitis. Date of Evaluation: 12/16/24 Physical Therapist: Juan Mcadams DPT, OCS, CSCS Visit Plan Frequency: 1x/Week Duration: 4-6 Weeks Plan: weekly for RPW, Pt to do wrist eextensor stretch 30 5x 2x/day at home and consider brace which he already has at home, will consider eccentric strength once improved. Does not want to come more frequently for STM, DTR, US. RPW weekly and pt to schedule one week in between. Consented to notifying Dr. Lima about this treatment and [facility] signed and scanned. Subjective Subjective: R arm pain for 2 months from flipping a house and overusing it. Pain is lateral R elbow. Pain is annoying 6/10 intermittiently. Worse with using it. No other treatments. Using a compression sleeve to keep it at bay. Worse at night with elbow bent. Waking up at night. Does not keep him from doing anything. Pain R elbow: Pain Intensity (Out of 10): 0 Pain Intensity Range: 0 and 6 Objective Objective: R forearm tender at lateral epicondyle moderately. Also down into extensor muscle belly. Pain with extension of wrist and middle finger max and transient. Full elbow , wrist adn shoulder AROM without pain unleess reesistance is added, does feel a stretch with wrist extensor streetching. ceervical aROM WFL and without pain today. + R tennis elbow test. - tinels. Normal sensation in R UE. Strenegth is 4+ but pain on wirst xt and not on elbow flex or ext or wrist flexion. Goals Goal 1:: abolish pain R elbow at night to sleeep without waking Goal Time Frame: 4-6 Weeks Goal 2:: Work with R arm without increased pain Goal Time Frame: 4-6 Weeks Goal 3:: I management of condition. Goal Time Frame: 4-6 Weeks Rehabilitation Potential Physical Therapy Diagnosis: lateral elbow pain making comfortable hand and wrist funcition difficult. pt wants RPW Rehabilitation Potential: Good Anticipated Interventions Patient/Client Instruction: Educate patient on: Condition and Plan of Care For the Purpose of:: To decrease pain and To improve muscle performance and motor function Therapeutic Exercise to Include: Strength training, Flexibilty training, Passive ROM and Active ROM Comment: educate on bracing For the Purpose of:: To decrease pain, To decrease swelling/inflammation and To increase ROM Comment: RPW For the Purpose of:: To decrease pain, To decrease swelling/inflammation and To improve nutrient delivery to tissue Text: Thank you for the opportunity to evaluate your patient. For Medicare and Medicare HMO plans, please review the plan of care and approve it. It will need to be FAXED BACK to us at [phone] for Medicare purposes. For Medicare only, by signing this I certify the plan of care. Please let me know if there are questions or concerns regarding this plan of care. Physician Signature: Date : 12/16/24911 CC: Dr. Lyndon Lima MD; Self Referred EBG Signed Normal [facility] Absolute neutrophil countOrd ered By: Lyndon Lima on 09-23-2024 Neutrophils (Bld) [#/Vol] 3.7 10*3/uL 2.0-7.7 [facility] Basophil percentageOrdered B y: Lyndon Lima on 09-23-2024 Basophils/100 WBC (Bld) 0.3 % 0-1 [facility] CBC W/Diff, Automatedon 09-12 Absolute Lymph 1.42 X10 3/uL Normal 0.83-4.51 [facility] Comment on above: Performed By: #### L 501.9910, L500.4050, L509.3000, L100.0100, L501.9520 #### [facility] [address] [place], [address] Absolute Neut 3.7 X10 3/uL Normal 2.0-7.7 [facility] Comment on above: Performed By: #### L 501.9910, L500.4050, L509.3000, L100.0100, L501.9520 #### [facility] [address] [place], [address] Basophils/100 WBC (Bld) 0.3 % Normal 0-1 [facility] Comment on above: Performed By: #### L 501.9910, L500.4050, L509.3000, L100.0100, L501.9520 #### [facility] [address] [place], [address] Eosinophils/100 WBC (Bld) 1.5 % Normal 0-5 [facility] Comment on above: Performed By: #### L 501.9910, L500.4050, L509.3000, L100.0100, L501.9520 #### [facility] [address] [place], [address] Erythrocyte distribution width (RBC) [Ratio] 16.9 % High 11.6-14.6 [facility] Comment on above: Performed By: #### L 501.9910, L500.4050, L509.3000, L100.0100, L501.9520 #### [facility] [address] [place], [address] Hematocrit (Bld) [Volume fraction] 42.1 % Normal 40-54 [facility] Comment on above: Performed By: #### L 501.9910, L500.4050, L509.3000, L100.0100, L501.9520 #### [facility] [address] [place], [address] Hemoglobin (Bld) [Mass/Vol] 12.7 g/dL Low 13.0-16.5 [facility] Comment on above: Performed By: #### L 501.9910, L500.4050, L509.3000, L100.0100, L501.9520 #### [facility] [address] [place], [address] IG% 0.300 Normal 0.0-0.9 [facility] Comment on above: Result Comment: IG% - Immature Granulocytes (promyelocytes, myelocytes and metamyelocytes) > 1% indicates that a LEFT SHIFT is Present. Performed By: #### L 501.9910, L500.4050, L509.3000, L100.0100, L501.9520 #### [facility] [address] [place], [address] Lymphocytes/100 WBC (Bld) 24.1 % Normal 19-41 [facility] Comment on above: Performed By: #### L 501.9910, L500.4050, L509.3000, L100.0100, L501.9520 #### [facility] [address] [place], [address] MCH (RBC) [Entitic mass] 22.5 pg Low 27.0-32.0 [facility] Comment on above: Performed By: #### L 501.9910, L500.4050, L509.3000, L100.0100, L501.9520 #### [facility] [address] [place], [address] MCHC (RBC) [Mass/Vol] 30.2 g/dL Low 32-36 [facility] Comment on above: Performed By: #### L 501.9910, L500.4050, L509.3000, L100.0100, L501.9520 #### [facility] [address] [place], [address] MCV (RBC) [Entitic vol] 74.5 fL Low 80-94 [facility] Comment on above: Performed By: #### L 501.9910, L500.4050, L509.3000, L100.0100, L501.9520 #### [facility] [address] [place], [address] Monocytes/100 WBC (Bld) 11.2 % High 0-10 [facility] Comment on above: Performed By: #### L 501.9910, L500.4050, L509.3000, L100.0100, L501.9520 #### [facility] [address] [place], [address] Neutrophils/100 WBC (Bld) 62.6 % Normal 47-70 [facility] Comment on above: Performed By: #### L 501.9910, L500.4050, L509.3000, L100.0100, L501.9520 #### [facility] [address] [place], [address] Nucleated RBC (Bld) [#/Vol] 0 10*3/uL Normal 0-5 [facility] Comment on above: Performed By: #### L 501.9910, L500.4050, L509.3000, L100.0100, L501.9520 #### [facility] [address] [place], [address] Platelet mean volume (Bld) [Entitic vol] 9.2 fL Normal 6.2-12.0 [facility] Comment on above: Performed By: #### L 501.9910, L500.4050, L509.3000, L100.0100, L501.9520 #### [facility] [address] [place], [address] Platelets (Bld) [#/Vol] 234 10*3/uL Normal 150-450 [facility] Comment on above: Performed By: #### L 501.9910, L500.4050, L509.3000, L100.0100, L501.9520 #### [facility] [address] [place], [address] RBC (Bld) [#/Vol] 5.65 10*6/uL Normal 4.6-6.2 [facility] Comment on above: Performed By: #### L 501.9910, L500.4050, L509.3000, L100.0100, L501.9520 #### [facility] [address] [place], [address] RDW SD 44.3 fl High 35.1-43.9 [facility] Comment on above: Performed By: #### L 501.9910, L500.4050, L509.3000, L100.0100, L501.9520 #### [facility] [address] [place], [address] WBC (Bld) [#/Vol] 5.9 10*3/uL Normal 4.4-11.0 [facility] Comment on above: Performed By: #### L 501.9910, L500.4050, L509.3000, L100.0100, L501.9520 #### [facility] [address] [place], [address] Eosinophil percentageOrdered By: Lyndon Lima on 09-23-2024 Eosinophils/100 WBC (Bld) 1.5 % 0-5 [facility] Erythrocyte distribution wid th ratioOrdered By: Lyndon Lima on 09-23-2024 Erythrocyte distribution width (RBC) [Ratio] 16.9 % High 11.6-14.6 [facility] Erythrocyte distribution wid th standard deviationOrdered By: Lyndon Lima on 09-23-2024 Erythrocyte distribution width (RBC) [Entitic vol] 44.3 fL High 35.1-43.9 [facility] Hematocrit Auto (Bld) [Volum e fraction]Ordered By: Lyndon Lima on 09-23-2024 Hematocrit (Bld) [Volume fraction] 42.1 % 40-54 [facility] Hemoglobin measurementOrdere d By: Lyndon Lima on 09-23-2024 Hemoglobin (Bld) [Mass/Vol] 12.7 g/dL Low 13.0-16.5 [facility] Immature granulocytes/100 WB C Auto (Bld)Ordered By: Lyndon Lima on 09-23-2024 Immature granulocytes/100 WBC (Bld) 0.300 % 0.0-0.9 [facility] Comment on above: IG% - Immature Granu locytes (promyelocytes, myelocytes and metamyelocytes) > 1% indicates that a LEFT SHIFT is Present. L509.3001on 09-23-2024 Testosterone [Mass/Vol] 1096.00 ng/dL High 300-890 [facility] Comment on above: Performed By: #### L 501.9910, L500.4050, L509.3000, L100.0100, L501.9520 #### [facility] [address] [place] [address], [address] Laboratory - Chemistry and C hemistry - challengeOrdered By: Lyndon Lima on 09-23-2024 Testosterone [Mass/Vol] 1096.00 ng/dL High 300-890 [facility] Lymphocytes Auto (Unsp spec) [#/Vol]Ordered By: Lyndon Lima on 09-23-2024 Lymphocytes (Bld) [#/Vol] 1.42 10*3/uL 0.83-4.51 [facility] Lymphocytes/100 WBC Auto (Un sp spec)Ordered By: Lyndon Lima on 09-23-2024 Lymphocytes/100 WBC (Bld) 24.1 % 19-41 [facility] MCV (mean corpuscular volume ) determinationOrdered By: Lyndon Lima on 09-23-2024 MCV (RBC) [Entitic vol] 74.5 fL Low 80-94 [facility] Mean corpuscular hemoglobin (MCH) determinationOrdered By: Lyndon Lima on 09-23-2024 MCH (RBC) [Entitic mass] 22.5 pg Low 27.0-32.0 [facility] Mean corpuscular hemoglobin concentration (MCHC) determinationOrdered By: Lyndon Lima on 09-23-2024 MCHC (RBC) [Mass/Vol] 30.2 g/dL Low 32-36 [facility] Mean platelet volume determi nationOrdered By: Lyndon Lima on 09-23-2024 Platelet mean volume (Bld) [Entitic vol] 9.2 fL 6.2-12.0 [facility] Monocyte percentageOrdered B y: Lyndon Lima on 09-23-2024 Monocytes/100 WBC (Bld) 11.2 % High 0-10 [facility] Neutrophil percentageOrdered By: Lyndon Lima on 09-23-2024 Neutrophils/100 WBC (Bld) 62.6 % 47-70 [facility] Nucleated red blood cell per centageOrdered By: Lyndon Lima on 09-23-2024 Nucleated RBC/100 WBC (Bld) [Ratio] 0 % 0-5 [facility] Platelet countOrdered By: Dino Lima on 09-23-2024 Platelets (Bld) [#/Vol] 234 10*3/uL 150-450 [facility] RBC Auto (Bld) [#/Vol]Ordere d By: Lyndon Lima on 09-23-2024 RBC (Bld) [#/Vol] 5.65 10*6/uL 4.6-6.2 [facility] White blood cell (WBC) count Ordered By: Lyndon Lima on 09-23-2024 WBC (Bld) [#/Vol] 5.9 10*3/uL 4.4-11.0 [facility] L/S Spine w Bend Min 6 Vwon 07-28-2024 L/S Spine w Bend Min 6 Vw [facility] [address] [place] [address] L/S Spine w Bend Min 6 Vw MR#: [id number] Acct: [id number] Name: ALLEGRA MARION Rep #: [id number] : 1975 M 48 From: Fred Fuentes MD PCP: Dr. Lyndon Lima MD Status: DEP AMB Study: L/S Spine w Bend Min 6 Vw Date of Exam: Exam# [id number] Ordering Dr: Adria Meeks MD [id number] EXAM: XR LUMBOSACRAL SPINE, 4 OR 5 VIEWS CLINICAL INDICATION: PAIN TECHNIQUE: Frontal, lateral and bilateral oblique views of the lumbar spine. COMPARISON: No relevant prior studies available. FINDINGS: VERTEBRAE: Moderate degenerative disease at L5-S1. Preservation of the normal lumbar lordosis. No significant facet arthropathy. No acute or healing fracture or malalignment. No pars defect bilaterally. No other unusual lytic or sclerotic lesions of bone. DISC SPACES: See above. GASTROINTESTINAL TRACT: Stool throughout the colon can be seen with constipation. Included bowel gas pattern is non-obstructive. OTHER FINDINGS: No abnormal motion with flexion/extension stress. RAD/L/S Spine w Bend Min 6 Vw IMPRESSION: 1. Moderate degenerative disease at L5-S1. 2. No acute or healing fracture or malalignment. 3. No abnormal motion with flexion/extension stress. Electronically Signed: Fred Fuentes MD at 18:11 EST , CC: Dr. Adria Meeks MD; Dr. Lyndon Lima MD [employer] Worker: Signed Normal [facility] CBC W/Diff, Automatedon 05-15 Absolute Lymph 1.31 X10 3/uL Normal 0.83-4.51 [facility] Comment on above: Performed By: #### L 509.3000, L501.9940, L100.0100 #### [facility] [address] [place], [address] Absolute Neut 4.8 X10 3/uL Normal 2.0-7.7 [facility] Comment on above: Performed By: #### L 509.3000, L501.9940, L100.0100 #### [facility] [address] [place], [address] Basophils/100 WBC (Bld) 0.6 % Normal 0-1 [facility] Comment on above: Performed By: #### L 509.3000, L501.9940, L100.0100 #### [facility] [address] [place], [address] Eosinophils/100 WBC (Bld) 1.0 % Normal 0-5 [facility] Comment on above: Performed By: #### L 509.3000, L501.9940, L100.0100 #### [facility] [address] [place], [address] Erythrocyte distribution width (RBC) [Ratio] 17.1 % High 11.6-14.6 [facility] Comment on above: Performed By: #### L 509.3000, L501.9940, L100.0100 #### [facility] [address] [place], [address] Hematocrit (Bld) [Volume fraction] 41.9 % Normal 40-54 [facility] Comment on above: Performed By: #### L 509.3000, L501.9940, L100.0100 #### [facility] [address] [place], [address] Hemoglobin (Bld) [Mass/Vol] 12.3 g/dL Low 13.0-16.5 [facility] Comment on above: Performed By: #### L 509.3000, L501.9940, L100.0100 #### [facility] [address] [place], [address] IG% 0.300 Normal 0.0-0.9 [facility] Comment on above: Result Comment: IG% - Immature Granulocytes (promyelocytes, myelocytes and metamyelocytes) > 1% indicates that a LEFT SHIFT is Present. Performed By: #### L 509.3000, L501.9940, L100.0100 #### [facility] [address] [place], [address] Lymphocytes/100 WBC (Bld) 18.8 % Low 19-41 [facility] Comment on above: Performed By: #### L 509.3000, L501.9940, L100.0100 #### [facility] [address] [place], [address] MCH (RBC) [Entitic mass] 21.3 pg Low 27.0-32.0 [facility] Comment on above: Performed By: #### L 509.3000, L501.9940, L100.0100 #### [facility] [address] [place], [address] MCHC (RBC) [Mass/Vol] 29.4 g/dL Low 32-36 [facility] Comment on above: Performed By: #### L 509.3000, L501.9940, L100.0100 #### [facility] [address] [place], [address] MCV (RBC) [Entitic vol] 72.6 fL Low 80-94 [facility] Comment on above: Performed By: #### L 509.3000, L501.9940, L100.0100 #### [facility] [address] [place], [address] Monocytes/100 WBC (Bld) 11.0 % High 0-10 [facility] Comment on above: Performed By: #### L 509.3000, L501.9940, L100.0100 #### [facility] [address] [place], [address] Neutrophils/100 WBC (Bld) 68.3 % Normal 47-70 [facility] Comment on above: Performed By: #### L 509.3000, L501.9940, L100.0100 #### [facility] [address] [place], [place], [address] Nucleated RBC (Bld) [#/Vol] 0 10*3/uL Normal 0-5 [facility] Comment on above: Performed By: #### L 509.3000, L501.9940, L100.0100 #### [facility] [address] [place], [address] Platelet mean volume (Bld) [Entitic vol] 9.3 fL Normal 6.2-12.0 [facility] Comment on above: Performed By: #### L 509.3000, L501.9940, L100.0100 #### [facility] [address] [place], [address] Platelets (Bld) [#/Vol] 310 10*3/uL Normal 150-450 [facility] Comment on above: Performed By: #### L 509.3000, L501.9940, L100.0100 #### [facility] [address] [place], [address] RBC (Bld) [#/Vol] 5.77 10*6/uL Normal 4.6-6.2 [facility] Comment on above: Performed By: #### L 509.3000, L501.9940, L100.0100 #### [facility] [address] [place], [address] RDW SD 42.9 fl Normal 35.1-43.9 [facility] Comment on above: Performed By: #### L 509.3000, L501.9940, L100.0100 #### [facility] [address] [place], [address] WBC (Bld) [#/Vol] 7.0 10*3/uL Normal 4.4-11.0 [facility] Comment on above: Performed By: #### L 509.3000, L501.9940, L100.0100 #### [facility] [address] [place], [address] PSA,Total- Diagnosticon 05-15 PSA, DIAGNOSTIC 0.52 ng/mL Normal 0.0-4.0 [facility] Comment on above: Result Comment: This test was performed using the TPSA assay method for the farmaciamarket chemistry system. Values obtained with different assay methods cannot be used interchangably. When changing PSA assays in the course of monitoring a patient, additional sequential testing should be carried out to confirm baseline values. Performed By: #### L 509.3000, L501.9940, L100.0100 #### [facility] [address] [place], [address] Testosterone, Serum Totalon 05-27-2024 Testosterone [Mass/Vol] 780.77 ng/dL Normal [facility] Comment on above: Result Comment: CENT RAL 90% REFERENCE RANGES MALE AGE <50 197.44 - 669.58 ng/dL MALE AGE > or = 50 187.72 - 684.19 ng/dL FEMALE AGE <50 8.38 - 35.01 ng/dL FEMALE AGE > or = 50 <7.00 - 35.92 ng/dL Effective as of 02/07/21 Performed By: #### L 509.3000, L501.9940, L100.0100 #### [facility] [address] [place], [address] CBC W/Diff, Automatedon 12-13 Absolute Lymph 1.29 X10 3/uL Normal 0.83-4.51 [facility] Comment on above: Performed By: #### L 501.9910, L500.4050, L509.3000, L100.0100, L501.9520 #### [facility] [address] [place], [address] Absolute Neut 3.3 X10 3/uL Normal 2.0-7.7 [facility] Comment on above: Performed By: #### L 501.9910, L500.4050, L509.3000, L100.0100, [id number] #### [facility] [address] [place], [address] Basophils/100 WBC (Bld) 0.4 % Normal 0-1 [facility] Comment on above: Performed By: #### L 501.9910, L500.4050, L509.3000, L100.0100, [id number] #### [facility] [address] [place], [address] Eosinophils/100 WBC (Bld) 1.9 % Normal 0-5 [facility] Comment on above: Performed By: #### L 501.9910, L500.4050, L509.3000, L100.0100, [id number] #### [facility] [address] [place], [address] Erythrocyte distribution width (RBC) [Ratio] 15.9 % High 11.6-14.6 [facility] Comment on above: Performed By: #### L 501.9910, L500.4050, L509.3000, L100.0100, L501.9520 #### [facility] [address] [place], [address] Hematocrit (Bld) [Volume fraction] 46.1 % Normal 40-54 [facility] Comment on above: Performed By: #### L 501.9910, L500.4050, L509.3000, L100.0100, L501.9520 #### [facility] [address] [place], [address] Hemoglobin (Bld) [Mass/Vol] 14.3 g/dL Normal 13.0-16.5 [facility] Comment on above: Performed By: #### L 501.9910, L500.4050, L509.3000, L100.0100, L501.9520 #### [facility] [address] [place], [address] IG% 0.600 Normal 0.0-0.9 [facility] Comment on above: Result Comment: IG% - Immature Granulocytes (promyelocytes, myelocytes and metamyelocytes) > 1% indicates that a LEFT SHIFT is Present. Performed By: #### L 501.9910, L500.4050, L509.3000, L100.0100, L501.9520 #### [facility] [address] [place], [address] Lymphocytes/100 WBC (Bld) 24.1 % Normal 19-41 [facility] Comment on above: Performed By: #### L 501.9910, L500.4050, L509.3000, L100.0100, [id number] #### [facility] [address] [place], [address] MCH (RBC) [Entitic mass] 24.5 pg Low 27.0-32.0 [facility] Comment on above: Performed By: #### L 501.9910, L500.4050, L509.3000, L100.0100, L501.9520 #### [facility] [address] [place], [address] MCHC (RBC) [Mass/Vol] 31.0 g/dL Low 32-36 [facility] Comment on above: Performed By: #### L 501.9910, L500.4050, L509.3000, L100.0100, [id number] #### [facility] [address] [place], [address] MCV (RBC) [Entitic vol] 78.9 fL Low 80-94 [facility] Comment on above: Performed By: #### L 501.9910, L500.4050, L509.3000, L100.0100, [id number] #### [facility] [address] [place], [address] Monocytes/100 WBC (Bld) 12.1 % High 0-10 [facility] Comment on above: Performed By: #### L 501.9910, L500.4050, L509.3000, L100.0100, [id number] #### [facility] [address] [place], [address] Neutrophils/100 WBC (Bld) 60.9 % Normal 47-70 [facility] Comment on above: Performed By: #### L 501.9910, L500.4050, L509.3000, L100.0100, L501.9520 #### [facility] [address] [place], [address] Nucleated RBC (Bld) [#/Vol] 0 10*3/uL Normal 0-5 [facility] Comment on above: Performed By: #### L 501.9910, L500.4050, L509.3000, L100.0100, L501.9520 #### [facility] [address] [place], [address] Platelet mean volume (Bld) [Entitic vol] 9.4 fL Normal 6.2-12.0 [facility] Comment on above: Performed By: #### L 501.9910, L500.4050, L509.3000, L100.0100, L501.9520 #### [facility] [address] [place], [address] Platelets (Bld) [#/Vol] 224 10*3/uL Normal 150-450 [facility] Comment on above: Performed By: #### L 501.9910, L500.4050, L509.3000, L100.0100, L501.9520 #### [facility] [address] [place], [address] RBC (Bld) [#/Vol] 5.84 10*6/uL Normal 4.6-6.2 [facility] Comment on above: Performed By: #### L 501.9910, L500.4050, L509.3000, L100.0100, [id number] #### [facility] [address] [place], [address] RDW SD 44.4 fl High 35.1-43.9 [facility] Comment on above: Performed By: #### L 501.9910, L500.4050, L509.3000, L100.0100, [id number] #### [facility] [address] [place], [address] WBC (Bld) [#/Vol] 5.4 10*3/uL Normal 4.4-11.0 [facility] Comment on above: Performed By: #### L 501.9910, L500.4050, L509.3000, L100.0100, L501.9520 #### [facility] [address] [place], [address] Comprehensive Metabolic Prof [facility] 12-25-2023 Albumin [Mass/Vol] 3.9 g/dL Normal 3.2-5.0 [facility] Comment on above: Performed By: #### L 501.9910, L500.4050, L509.3000, L100.0100, L501.9520 #### [facility] [address] [place], [address] Albumin/Globulin [Mass ratio] 1.0 {ratio} Normal 0.9-2.4 [facility] Comment on above: Performed By: #### L 501.9910, L500.4050, L509.3000, L100.0100, L501.9520 #### [facility] [address] [place], [address] ALK P 84 U/L Normal 45-117 [facility] Comment on above: Performed By: #### L 501.9910, L500.4050, L509.3000, L100.0100, [id number] #### [facility] [address] [place], [address] ALT [Catalytic activity/Vol] 61 U/L Normal 16-61 [facility] Comment on above: Performed By: #### L 501.9910, L500.4050, L509.3000, L100.0100, L501.9520 #### [facility] [address] [place], [address] AST [Catalytic activity/Vol] 39 U/L High 15-37 [facility] Comment on above: Performed By: #### L 501.9910, L500.4050, L509.3000, L100.0100, L501.9520 #### [facility] [address] [place], [address] Bilirubin [Mass/Vol] 0.60 mg/dL Normal 0.20-1.00 [facility] Comment on above: Result Comment: For patients on eltrombopag therapy, use of Dimension Arabi TBIL is not recommended. Performed By: #### L 501.9910, L500.4050, L509.3000, L100.0100, L501.9520 #### [facility] [address] [place], [address] BUN/CRE 14.2 RATIO Normal 10-20 [facility] Comment on above: Performed By: #### L 501.9910, L500.4050, L509.3000, L100.0100, [id number] #### [facility] [address] [place], [address] CA,Total 9.1 mg/dL Normal 8.5-10.1 [facility] Comment on above: Performed By: #### L 501.9910, L500.4050, L509.3000, L100.0100, L501.9520 #### [facility] [address] [place], [address] Chloride [Moles/Vol] 105 mmol/L Normal 98-107 [facility] Comment on above: Performed By: #### L 501.9910, L500.4050, L509.3000, L100.0100, L501.9520 #### [facility] [address] [place], [address] CO2 [Moles/Vol] 24.0 mmol/L Normal 21.0-32.0 [facility] Comment on above: Performed By: #### L 501.9910, L500.4050, L509.3000, L100.0100, L501.9520 #### [facility] [address] [place], [address] Creatinine [Mass/Vol] 1.06 mg/dL Normal 0.70-1.30 [facility] Comment on above: Result Comment: The validity of the calculated GFR GFRAA in patients over 70 years has not been determined. Clinical correlation is essential. Performed By: #### L 501.9910, L500.4050, L509.3000, L100.0100, L501.9520 #### [facility] [address] [place], [address] EST GFR - AA 97 mL/min Normal >60 [facility] Comment on above: Result Comment: Afri can Togolese GFR Calc Performed By: #### L 501.9910, L500.4050, L509.3000, L100.0100, L501.9520 #### [facility] [address] [place], [address] GAP 7 Normal 5-15 [facility] Comment on above: Performed By: #### L 501.9910, L500.4050, L509.3000, L100.0100, L501.9520 #### [facility] [address] [place], [address] GFR/1.73 sq M.predicted among non-blacks MDRD (S/P/Bld) [Vol rate/Area] 80 mL/min/{1.73_m2} Normal >60 [facility] Comment on above: Result Comment: Non- GFR Calc Performed By: #### L 501.9910, L500.4050, L509.3000, L100.0100, L501.9520 #### [facility] [address] [place], [address] Globulin (S) [Mass/Vol] 4.0 g/dL Normal 2.2-4.2 [facility] Comment on above: Performed By: #### L 501.9910, L500.4050, L509.3000, L100.0100, L501.9520 #### [facility] [address] [place], [address] Glucose [Mass/Vol] 100 mg/dL Normal 74-106 [facility] Comment on above: Result Comment: Fast ing Glucose result from 100 to 125 mg/dL suggests IMPAIRED HOMEOSTASIS per A.D.A. criteria. Performed By: #### L 501.9910, L500.4050, L509.3000, L100.0100, L501.9520 #### [facility] [address] [place], [address] Potassium [Moles/Vol] 4.1 mmol/L Normal 3.5-5.1 [facility] Comment on above: Performed By: #### L 501.9910, L500.4050, L509.3000, L100.0100, L501.9520 #### [facility] [address] [place], [address] Sodium [Moles/Vol] 136 mmol/L Normal 136-145 [facility] Comment on above: Performed By: #### L 501.9910, L500.4050, L509.3000, L100.0100, L501.9520 #### [facility] [address] [place], [address] T PROT 7.9 g/dL Normal 6.4-8.2 [facility] Comment on above: Performed By: #### L 501.9910, L500.4050, L509.3000, L100.0100, L501.9520 #### [facility] [address] [place], [address] Urea nitrogen [Mass/Vol] 15 mg/dL Normal 7-18 [facility] Comment on above: Performed By: #### L 501.9910, L500.4050, L509.3000, L100.0100, L501.9520 #### [facility] [address] [place], [address] PSA,Total - Annual Screenon 12-25-2023 PSA,TOT SCREEN 0.51 ng/mL Normal 0.00-4.00 [facility] Comment on above: Result Comment: This test was performed using the TPSA assay method for the farmaciamarket chemistry system. Values obtained with different assay methods cannot be used interchangably. When changing PSA assays in the course of monitoring a patient, additional sequential testing should be carried out to confirm baseline values. Performed By: #### L 501.9910, L500.4050, L509.3000, L100.0100, L501.9520 #### [facility] [address] [place], [address] Testosterone, Serum Totalon 12-25-2023 Testosterone [Mass/Vol] 266.01 ng/dL Normal [facility] Comment on above: Result Comment: CENT RAL 90% REFERENCE RANGES MALE AGE <50 197.44 - 669.58 ng/dL MALE AGE > or = 50 187.72 - 684.19 ng/dL FEMALE AGE <50 8.38 - 35.01 ng/dL FEMALE AGE > or = 50 <7.00 - 35.92 ng/dL Effective as of 02/07/21 Performed By: #### L 501.9910, L500.4050, L509.3000, L100.0100, L501.9520 #### [facility] [address] [place], [address] Thyroid Stim Hormone (TSH)on 12-25-2023 TSH 3.45 uIU/mL Normal 0.358-3.74 [facility] Comment on above: Performed By: #### L 501.9910, L500.4050, L509.3000, L100.0100, L501.9520 #### [facility] [address] [place], [place], [address] Absolute lymphocyte countOrd ered By: Lyndon Lima on 03-14-2023 Lymphocytes Auto (Unsp spec) [#/Vol] 1.55 10*3/uL 0.83-4.51 [facility] Basophil percentageOrdered B y: Lyndon Lima on 03-14-2023 Basophils/100 WBC (Bld) 0.3 % 0-1 [facility] Chloride [Moles/Vol] 105 mmol/L 98-107 [facility] Cholesterol [Mass/Vol] 207 mg/dL <200 [facility] Comment on above: <200 mg/dL Desirable 200-240 mg/dL Borderline >240 mg/dL High Risk Eosinophils/100 WBC (Bld) 0.1 % 0-5 [facility] Glucose [Mass/Vol] 85 mg/dL 74-106 [facility] Neutrophils (Bld) [#/Vol] 8.8 10*3/uL 2.0-7.7 [facility] Neutrophils/100 WBC (Bld) 77.0 % 47-70 [facility] Potassium [Moles/Vol] 3.6 mmol/L 3.5-5.1 [facility] Sodium [Moles/Vol] 138 mmol/L 136-145 [facility] Testosterone [Mass/Vol] 814.41 ng/dL [facility] Comment on above: CENTRAL 90% REFERENC E RANGES MALE AGE <50 197.44 - 669.58 ng/dL MALE AGE > or = 50 187.72 - 684.19 ng/dL FEMALE AGE <50 8.38 - 35.01 ng/dL FEMALE AGE > or = 50 <7.00 - 35.92 ng/dL Effective as of 02/07/21 Triglyceride [Mass/Vol] 235 mg/dL <199 [facility] Comment on above: The drugs N-Acetylcy steine and Metamizole may falsely depress this assay.Serum Triglycerides Reference Interval Normal <150 mg/dL Borderline high 150 - 199 mg/dL High 200 - 499 mg/dL Very High > or = 500 mg/dL WBC (Bld) [#/Vol] 11.4 10*3/uL 4.4-11.0 [facility] Blood erythrocytes count (nu mber/volume)Ordered By: Lyndon Lima on 03-14-2023 RBC (Bld) [#/Vol] 5.47 10*6/uL 4.6-6.2 [facility] Blood hemoglobin measurement (mass/volume)Ordered By: Lyndon Lima on 03-14-2023 Hemoglobin (Bld) [Mass/Vol] 13.3 g/dL 13.0-16.5 [facility] Blood lymphocytes/100 leukoc ytesOrdered By: Lyndon Lima on 03-14-2023 Lymphocytes/100 WBC (Bld) 13.6 % 19-41 [facility] Blood monocytes/100 leukocyt esOrdered By: Lyndon Lima on 03-14-2023 Monocytes/100 WBC (Bld) 8.0 % 0-10 [facility] Blood platelet mean volumeOr dered By: Lyndon Lima on 03-14-2023 Platelet mean volume (Bld) [Entitic vol] 9.2 fL 6.2-12.0 [facility] Determination of erythrocyte mean corpuscular volume (MCV)Ordered By: Lyndon Lima on 03-14-2023 MCV (RBC) [Entitic vol] 77.3 fL 80-94 [facility] Hematocrit Auto (Bld) [Volum e fraction]Ordered By: Lyndon Lima on 03-14-2023 Hematocrit (Bld) [Volume fraction] 42.3 % 40-54 [facility] - Chemistry and C hemistry - challengeOrdered By: Lyndon Lima on 03-14-2023 CO2 [Moles/Vol] 24.0 mmol/L 21.0-32.0 [facility] Urea nitrogen/Creatinine [Mass ratio] 14.3 mg/mg 10-20 [facility] - Hematology and Cell countsOrdered By: Lyndon Lima on 03-14-2023 Erythrocyte distribution width (RBC) [Entitic vol] 45.6 fL 35.1-43.9 [facility] Erythrocyte distribution width (RBC) [Ratio] 16.4 % 11.6-14.6 [facility] Immature granulocytes/100 WBC (Bld) 1.000 % 0.0-0.9 [facility] Comment on above: IG% - Immature Granu locytes (promyelocytes, myelocytes and metamyelocytes) > 1% indicates that a LEFT SHIFT is Present. MCH (RBC) [Entitic mass] 24.3 pg 27.0-32.0 [facility] Nucleated RBC/100 WBC (Bld) [Ratio] 0 % 0-5 [facility] MCHC Auto (RBC) [Mass/Vol]Or dered By: Lyndon Lima on 03-14-2023 MCHC (RBC) [Mass/Vol] 31.4 g/dL 32-36 [facility] No Panel InformationOrdered By: Lyndon Lima on 03-14-2023 Estimated GFR (MDRD) Amer 91 mL/min >60 [facility] Comment on above: GFR Calc Estimated GFR (MDRD) Non-Af Amer 75 mL/min >60 [facility] Comment on above: Non- GFR Calc Platelets bldOrdered By: Patti Lima on 03-14-2023 Platelets (Bld) [#/Vol] 280 10*3/uL 150-450 [facility] Serum or plasma calcium valentín urement (mass/volume)Ordered By: Lyndon Lima on 03-14-2023 Calcium [Mass/Vol] 8.8 mg/dL 8.5-10.1 [facility] Serum or plasma cholesterol in HDL measurement (mass/volume)Ordered By: Lyndon Lima on 03-14-2023 Cholesterol in HDL [Mass/Vol] 29 mg/dL >40 [facility] Comment on above: The drugs N-Acetylcy steine and Metamizole may falsely depress this assay. Reference Range HDL <40 mg/dL Low HDL Cholesterol HDL >or= 60 mg/dL High HDL Cholesterol Serum or plasma cholesterol in VLDL measurement (mass/volume)Ordered By: Lyndon Lima on 03-14-2023 Cholesterol in VLDL [Mass/Vol] 47 mg/dL 5-40 [facility] Serum or plasma creatinine m easurement (mass/volume)Ordered By: Lyndon Lima on 03-14-2023 Creatinine [Mass/Vol] 1.12 mg/dL 0.70-1.30 [facility] Comment on above: The validity of the calculated GFR & GFRAA in patients over 70 years has not been determined. Clinical correlation is essential. Serum or plasma low density lipoprotein (LDL) cholesterol measurement (mass/volume)Ordered By: Lyndon Lima on 03-14-2023 Cholesterol in LDL [Mass/Vol] 131 mg/dL 0-130 [facility] Serum or plasma urea nitroge n measurement (mass/volume)Ordered By: Lyndon Lima on 03-14-2023 Urea nitrogen [Mass/Vol] 16 mg/dL 7-18 [facility] Thin prep Papanicolaou smear with manual screeningOrdered By: Lyndon Lima on 03-14-2023 Thin prep Papanicolaou smear with manual screening 9 5-15 [facility] Absolute lymphocyte countOrd ered By: Dr. Lima on 11-09-2022 Lymphocytes Auto (Unsp spec) [#/Vol] 1.41 10*3/uL 0.83-4.51 [facility] Basophil percentageOrdered B y: Dr. Lima on 11-09-2022 Basophils/100 WBC (Bld) 0.5 % 0-1 [facility] Chloride [Moles/Vol] 108 mmol/L 98-107 [facility] Eosinophils/100 WBC (Bld) 1.0 % 0-5 [facility] Glucose [Mass/Vol] 118 mg/dL 74-106 [facility] Comment on above: Fasting Glucose resu lt from 100 to 125 mg/dL suggests IMPAIRED HOMEOSTASIS per A.D.A. criteria. Neutrophils (Bld) [#/Vol] 4.1 10*3/uL 2.0-7.7 [facility] Neutrophils/100 WBC (Bld) 64.7 % 47-70 [facility] Potassium [Moles/Vol] 3.8 mmol/L 3.5-5.1 [facility] Sodium [Moles/Vol] 138 mmol/L 136-145 [facility] Testosterone [Mass/Vol] 697.64 ng/dL [facility] Comment on above: CENTRAL 90% REFERENC E RANGES MALE AGE <50 197.44 - 669.58 ng/dL MALE AGE > or = 50 187.72 - 684.19 ng/dL FEMALE AGE <50 8.38 - 35.01 ng/dL FEMALE AGE > or = 50 <7.00 - 35.92 ng/dL Effective as of 02/07/21 WBC (Bld) [#/Vol] 6.3 10*3/uL 4.4-11.0 [facility] Blood erythrocytes count (nu mber/volume)Ordered By: Dr. Lima on 11-09-2022 RBC (Bld) [#/Vol] 5.52 10*6/uL 4.6-6.2 [facility] Blood hemoglobin measurement (mass/volume)Ordered By: Dr. Lima on 11-09-2022 Hemoglobin (Bld) [Mass/Vol] 13.2 g/dL 13.0-16.5 [facility] Blood lymphocytes/100 leukoc ytesOrdered By: Dr. Lima on 11-09-2022 Lymphocytes/100 WBC (Bld) 22.5 % 19-41 [facility] Blood monocytes/100 leukocyt esOrdered By: Dr. Lima on 11-09-2022 Monocytes/100 WBC (Bld) 10.8 % 0-10 [facility] Blood platelet mean volumeOr dered By: Dr. Lima on 11-09-2022 Platelet mean volume (Bld) [Entitic vol] 9.4 fL 6.2-12.0 [facility] Determination of erythrocyte mean corpuscular volume (MCV)Ordered By: Dr. Lima on 11-09-2022 MCV (RBC) [Entitic vol] 79.2 fL 80-94 [facility] Hematocrit Auto (Bld) [Volum e fraction]Ordered By: Dr. Lima on 11-09-2022 Hematocrit (Bld) [Volume fraction] 43.7 % 40-54 [facility] - Chemistry and C hemistry - challengeOrdered By: Dr. Lima on 11-09-2022 CO2 [Moles/Vol] 28.0 mmol/L 21.0-32.0 [facility] Urea nitrogen/Creatinine [Mass ratio] 11.8 mg/mg 10-20 [facility] - Hematology and Cell countsOrdered By: Dr. Lima on 11-09-2022 Erythrocyte distribution width (RBC) [Entitic vol] 45.6 fL 35.1-43.9 [facility] Erythrocyte distribution width (RBC) [Ratio] 16.1 % 11.6-14.6 [facility] Immature granulocytes/100 WBC (Bld) 0.500 % 0.0-0.9 [facility] Comment on above: IG% - Immature Granu locytes (promyelocytes, myelocytes and metamyelocytes) > 1% indicates that a LEFT SHIFT is Present. MCH (RBC) [Entitic mass] 23.9 pg 27.0-32.0 [facility] Nucleated RBC/100 WBC (Bld) [Ratio] 0 % 0-5 [facility] MCHC Auto (RBC) [Mass/Vol]Or dered By: Dr. Lima on 11-09-2022 MCHC (RBC) [Mass/Vol] 30.2 g/dL 32-36 [facility] No Panel InformationOrdered By: Dr. Lima on 11-09-2022 Estimated GFR (MDRD) Amer 93 mL/min >60 [facility] Comment on above: GFR Calc Estimated GFR (MDRD) Non-Af Amer 77 mL/min >60 [facility] Comment on above: Non- GFR Calc Prostate Specific Antigen Screen 0.50 ng/mL 0.00-4.00 [facility] Comment on above: This test was perfor med using the TPSA assay method for the[employer] chemistry system. Values obtained with differentassay methods cannot be used interchangably.When changing PSA assays in the course of monitoring apatient, additional sequential testing should be carriedout to confirm baseline values. Platelets bldOrdered By: Dr. Lima on 11-09-2022 Platelets (Bld) [#/Vol] 242 10*3/uL 150-450 [facility] Serum or plasma calcium valentín urement (mass/volume)Ordered By: Dr. Lima on 11-09-2022 Calcium [Mass/Vol] 9.2 mg/dL 8.5-10.1 [facility] Serum or plasma creatinine m easurement (mass/volume)Ordered By: Dr. Lima on 11-09-2022 Creatinine [Mass/Vol] 1.10 mg/dL 0.70-1.30 [facility] Comment on above: The validity of the calculated GFR & GFRAA in patients over 70 years has not been determined. Clinical correlation is essential. Serum or plasma urea nitroge n measurement (mass/volume)Ordered By: Dr. Lima on 11-09-2022 Urea nitrogen [Mass/Vol] 13 mg/dL 7-18 [facility] Thin prep Papanicolaou smear with manual screeningOrdered By: Dr. Lima on 11-09-2022 Thin prep Papanicolaou smear with manual screening 2 5-15 [facility] No Panel InformationOrdered By: Dr. Godwin on 09-06-2022 Miscellaneous Test See comment [facility] Comment on above: TEST RESULT LIMITSI0 04-IgE Paper Wasp 0.15 Abnormal kU/L Class 0/IClass Description: Levels of Specific IgE Class Description of Class ----- < 0.10 0 Negative 0.10 - 0.31 0/I Equivocal/Low 0.32 - 0.55 I Low 0.56 - 1.40 II Moderate 1.41 - 3.90 III High 3.91 - 19.00 IV Very High19.01 - 100.00 V Very High >100.00 Very High TESTING PERFORMED AT [facility]. ORIGINAL REPORT ON FILE IN LAB CONTAINS ADDITIONAL TEST SITE INFORMATION. Tryptase 3.4 ug/L 2.2-13.2 [facility] Comment on above: Performed at: [facility] [facility] [address] [id number] Director: Meghann Holman MD, Phone: [phone] CBC W Auto Differential pane l (Bld)on 08-31-2022 Basophils (Bld) [#/Vol] 0.04 10*3/uL Normal <=0.70 [facility] Comment on above: Performed By: #### 5 7021-8 #### [place] [address] Nurse'S Assistant - Ria PERALTAIA [id number] Basophils/100 WBC (Bld) 0.3 % Normal <=2.0 [facility] Comment on above: Performed By: #### 5 7021-8 #### [place] [address] Nurse'S Assistant - Ria PERALTAIA [id number] Eosinophils (Bld) [#/Vol] 0.01 10*3/uL Normal <=0.70 [facility] Comment on above: Performed By: #### 5 7021-8 #### [place] [address] Nurse'S Assistant - Ria PERALTAIA [id number] Eosinophils/100 WBC (Bld) 0.1 % Normal <=10.0 [facility] Comment on above: Performed By: #### 5 7021-8 #### [place] [address] Nurse'S Assistant - Ria PERALTAIA [id number] Erythrocyte distribution width (RBC) [Entitic vol] 43.3 fL Normal 35.1-43.9 [facility] Comment on above: Performed By: #### 5 7021-8 #### [facility] [address] [place] [address] Nurse'S Assistant - Ria PERALTAIA [id number] Hematocrit (Bld) [Volume fraction] 48.4 % Normal 40.0-54.0 [facility] Comment on above: Performed By: #### 5 7021-8 #### [place] [address] [place] [address] Nurse'S Assistant - Ria PERALTAIA [id number] Hemoglobin (Bld) [Mass/Vol] 15.2 g/dL Normal 14.0-18.0 [facility] Comment on above: Performed By: #### 5 7021-8 #### [place] [address] [place] [address] Nurse'S Assistant - Ria PERALTAIA [id number] Immature granulocytes (Bld) [#/Vol] 0.11 10*3/uL High <=0.10 [facility] Comment on above: Performed By: #### 5 7021-8 #### [place] [address] [place] [address] Nurse'S Assistant - Ria PERALTAIA [id number] Immature granulocytes/100 WBC (Bld) 0.90 % Normal <=1.50 [facility] Comment on above: Performed By: #### 5 7021-8 #### [place] [address] [place] [address] Nurse'S Assistant - Ria PERALTAIA [id number] Lymphocytes (Bld) [#/Vol] 1.41 10*3/uL Normal 1.20-3.40 [facility] Comment on above: Performed By: #### 5 7021-8 #### [place] [address] [place] [address] Nurse'S Assistant - Ria Culp CLIA [id number] Lymphocytes/100 WBC (Bld) 11.4 % Low 20.0-40.0 [facility] Comment on above: Performed By: #### 5 7021-8 #### [place] [address] [place] [address] Nurse'S Assistant - Ria SALGADO [id number] MCH (RBC) [Entitic mass] 24.6 pg Low 27.0-31.0 [facility] Comment on above: Performed By: #### 5 7021-8 #### [address] [place] [address] Nurse'S Assistant - Ria SALGADO [id number] MCHC (RBC) [Mass/Vol] 31.4 g/dL Low 32.0-36.0 [facility] Comment on above: Performed By: #### 5 7021-8 #### [address] [place] [address] Nurse'S Assistant - Ria SALGADO [id number] MCV (RBC) [Entitic vol] 78.3 fL Low 80.0-100.0 [facility] Comment on above: Performed By: #### 5 7021-8 #### [address] [place] [address] Nurse'S Assistant - Ria SALGADO [id number] Monocytes (Bld) [#/Vol] 0.73 10*3/uL High 0.10-0.60 [facility] Comment on above: Performed By: #### 5 7021-8 #### [address] [place] [address] Nurse'S Assistant - Ria SALGADO [id number] Monocytes/100 WBC (Bld) 5.9 % Normal <=8.0 [facility] Comment on above: Performed By: #### 5 7021-8 #### [address] [place] [address] Nurse'S Assistant - Ria SALGADO [id number] Neutrophils (Bld) [#/Vol] 10.11 10*3/uL High 1.40-6.50 [facility] Comment on above: Performed By: #### 5 7021-8 #### [address] [place] [address] Nurse'S Assistant - Ria SALGADO [id number] Neutrophils/100 WBC (Bld) 81.4 % High 50.0-70.0 [facility] Comment on above: Performed By: #### 5 7021-8 #### [facility] [address] [place] [address] Nurse'S Assistant - Ria PERALTAIA [id number] Nucleated RBC (Bld) [#/Vol] 0.00 10*3/uL Normal <=0.10 [facility] Comment on above: Performed By: #### 5 7021-8 #### [place] [address] [place] [address] Nurse'S Assistant - Ria PERALTAIA [id number] Platelet mean volume (Bld) [Entitic vol] 9.2 fL Normal 9.0-13.0 [facility] Comment on above: Performed By: #### 5 7021-8 #### [address] [place] [address] Nurse'S Assistant - Ria PERALTAIA [id number] Platelets (Bld) [#/Vol] 248 10*3/uL Normal 130-400 [facility] Comment on above: Performed By: #### 5 7021-8 #### [place] [address] [place] [address] Nurse'S Assistant - Ria PERALTAIA [id number] RBC (Bld) [#/Vol] 6.18 10*6/uL Normal 4.00-6.30 [facility] Comment on above: Performed By: #### 5 7021-8 #### [place] [address] [address] [place] [address] Nurse'S Assistant - Ria PERALTAIA [id number] WBC (Bld) [#/Vol] 12.41 10*3/uL High 4.80-10.80 [facility] Comment on above: Performed By: #### 5 7021-8 #### [address] [place] [address] Nurse'S Assistant - Ria PERALTAIA [id number] CHEST AP PORTABLEon 08-31-19 23 CHEST AP PORTABLE CHEST AP UPRIGHT COMPARISON: None. HISTORY: Chest pain. FINDINGS: The lungs are clear of infiltrates. The cardiomediastinal silhouette, bony thorax, and surrounding soft tissue structures show no additional abnormalities of significance. EKG leads are noted incidentally bilaterally. Electrodes from a presumed spinal cord stimulation device are seen to overlie the mid to lower thoracic spine. IMPRESSION: No acute pulmonary disease. Normal [facility] COMPREHENSIVE METABOLIC PANE Pravin 08-31-2022 GFR/1.73 sq M.predicted MDRD (S/P/Bld) [Vol rate/Area] mL/min/{1.73_m2} Normal >=59 [facility] Comment on above: Performed By: #### 1 9123-9, 28746-6, 3040-3 #### [facility] [address] [place] [address] [facility]S Assistant [facility] [id number] Performed By: #### P OCCR #### [facility] [address] [place] [address] Nurse'S Assistant - [facility] [id number] HGFR GLOMERULAR FILTRATIO N RATE INTERPRETATION~The eGFR is calculated using the MDRD equation.~This equation has been validated in patients with chronic kidney disease;~however, it underestimates the GFR in healthy patients with GFR's over 60 mL/min.~The equation is not valid in children under the age of 18.~NOTE: Criteria for Chronic Kidney Disease:~ ~1. Kidney damage for at least three months, as defined~by structural or functional abnormalities of the kidney,~with or without decreased glomerular filtration rate, manifested by either:~* Pathological abnormalities or~* Markers of Kidney damage, including abnormalities in~the composition of the blood or urine or abnormalities in imaging tests.~ ~2. GFR <60 mL/min/1.73 m squared for at least three months, with or without kidney damage.~ Normal [facility] Comment on above: Performed By: #### 1 9123-9, 14351-0, 3040-3 #### [facility] [address] [place] [address] Nurse'S Assistant - [facility] [id number] Performed By: #### P OCCR #### [facility] [address] [place], [place] [address] Nurse'S Assistant - Ria SALGADO [id number] CREATININE - POCon 3 Creatinine [Mass/Vol] 1.20 mg/dL High 0.67-1.17 [facility] Comment on above: Performed By: #### P OCCR #### [facility] [address] [place] [address] Nurse'S Assistant - Riarock Culp FABIANKADI [id number] CT CTA AORTA CHEST ABD PELVo n 08-31-2022 CT CTA AORTA CHEST ABD PELV CT OF THE CHEST, ABDOMEN, AND PELVIS POST IV CONTRAST WITH CT AORTIC ANGIOGRAPHY PROTOCOL INCLUDING 2D AND 3D REFORMATTED IMAGES TECHNIQUE: Volume acquisitions were obtained through the chest, abdomen, and pelvis prior to and following the uneventful intravenous administration of 75 mL Isovue-370. Axial, coronal, and sagittal images were displayed. 3D reformatted images were also reviewed using a separate [employer] workstation. Dose reduction techniques were achieved by using automated exposure control and/or adjustment of mA and /or kV according to patient size and/or use of iterative reconstruction technique. COMPARISON: Chest radiograph dated 08/31/2022. CT ANGIOGRAPHY AORTA: The thoracoabdominal aorta appears normal. There is no evidence of dissection or aneurysm. There is a bovine configuration to the aortic arch branches which are widely patent at their origins. No significant coronary arterial calcifications are seen. There is also a normal appearance to the mesenteric vessel origins as well as a single renal artery bilaterally. THORAX: There is dependent atelectasis in the lungs posteriorly bilaterally. Allowing for this, there is no evidence of pneumonia. There are no suspicious appearing pulmonary nodules. There are no pathologically enlarged lymph nodes in the included mediastinum, iam, or axilla. The cardiac chambers are not overtly dilated. There is mild degenerative spondylosis at the mid to lower thoracic levels. The osseous structures and surrounding soft tissues are otherwise unremarkable. ABDOMEN: There is fatty infiltration of the liver. There is an unremarkable appearance to the gallbladder, spleen, pancreas, adrenal glands, and kidneys. A subcentimeter cyst is noted incidentally in the upper pole of the left kidney. PELVIS: There is an unremarkable appearance to the urinary bladder, prostate gland, seminal vesicles, and rectosigmoid colon. The appendix is normal in caliber with no appendicitis. Small bowel loops are considered unremarkable. There is degenerative spondylosis at L5-S1. The osseous structures and surrounding soft tissues are otherwise unremarkable. Incidental note is made of a spinal cord stimulating device with its battery pack overlying the left buttock. The electrodes extend into the spinal canal reaching the mid to lower thoracic levels. IMPRESSION: 1. Normal appearance to the thoracoabdominal aorta with no aneurysm or dissection. 2. No acute pulmonary disease. 3. Moderate fatty infiltration of the liver. Normal [facility] Comprehensive metabolic 2000 panelon 08-31-2022 Albumin [Mass/Vol] 4.1 g/dL Normal 3.4-5.0 [facility] Comment on above: Performed By: #### 1 9123-9, 70340-2, 3040-3 #### [facility] [address] [facility]. [place] [address] Nurse'S Assistant - Ria SALGADO [id number] ALP [Catalytic activity/Vol] 91 U/L Normal 50-136 [facility] Comment on above: Performed By: #### 1 9123-9, 68829-3, 0-3 #### [facility] [address] [facility]. [place] [address] Nurse'S Assistant - Ria SALGADO [id number] ALT [Catalytic activity/Vol] 49 U/L Normal 16-63 [facility] Comment on above: Performed By: #### 1 9123-9, 08591-3, 0-3 #### [facility] [address] [place] [address] Nurse'S Assistant - Ria PERALTAIA [id number] Anion gap [Moles/Vol] 5.0 mmol/L Normal <=15.0 [facility] Comment on above: Performed By: #### 1 9123-9, 41086-5, 3040-3 #### [facility] [address] [facility]. [place] [address] Nurse'S Assistant - Ria SALGADO [id number] AST [Catalytic activity/Vol] 16 U/L Normal 15-37 [facility] Comment on above: Performed By: #### 1 23-9, 13068-3, 0-3 #### [facility] [address] [place] [address] Nurse'S Assistant - Ria Culp CLIA [id number] Bilirubin [Mass/Vol] 0.4 mg/dL Normal 0.2-1.0 [facility] Comment on above: Performed By: #### 1 9122-9, , 3039-3 #### [facility] [address] [place] [address] Nurse'S Assistant - Ria PERALTAIA [id number] Calcium [Mass/Vol] 9.2 mg/dL Normal 8.5-10.1 [facility] Comment on above: Performed By: #### 1 9122-9, , 3039-3 #### [facility] [address] [place] [address] Nurse'S Assistant - Ria Culp CLIA [id number] Chloride [Moles/Vol] 100 mmol/L Normal 98-107 [facility] Comment on above: Performed By: #### 1 9122-9, , 3039-3 #### [facility] [address] [place] [address] Nurse'S Assistant - Ria Culp CLIA [id number] CO2 [Moles/Vol] 29 mmol/L Normal 21-32 [facility] Comment on above: Performed By: #### 1 23-9, , 3039-3 #### [facility] [address] [place] [address] Nurse'S Assistant - Ria Culp CLIA [id number] Creatinine [Mass/Vol] 1.04 mg/dL Normal 0.67-1.17 [facility] Comment on above: Performed By: #### 1 23-9, 78203-0, 0-3 #### [facility] [address] [place] [address] Nurse'S Assistant - Ria Culp CLIA [id number] Glucose [Mass/Vol] 107 mg/dL High 74-106 [facility] Comment on above: Performed By: #### 1 9123-9, 49699-2, 0-3 #### [facility] [address] [place] [address] Nurse'S Assistant - Ria SALGADO [id number] Potassium [Moles/Vol] 3.7 mmol/L Normal 3.5-5.1 [facility] Comment on above: Performed By: #### 1 23-9, 30797-0, 0-3 #### [facility] [address] [place] [address] Nurse'S Assistant - Ria SALGADO [id number] Protein [Mass/Vol] 8.4 g/dL High 6.4-8.2 [facility] Comment on above: Performed By: #### 1 9123-9, 01815-8, 0-3 #### [facility] [address] [place] [address] Nurse'S Assistant - Ria PERALTAIA [id number] Sodium [Moles/Vol] 134 mmol/L Low 136-145 [facility] Comment on above: Performed By: #### 1 9123-9, 28395-0, 0-3 #### [facility] [address] [place] [address] Nurse'S Assistant - Ria SALGADO [id number] Urea nitrogen [Mass/Vol] 14 mg/dL Normal 9-20 [facility] Comment on above: Performed By: #### 1 9123-9, 74207-5, 0-3 #### [facility] [address] [place] [address] Nurse'S Assistant - Ria SALGADO [id number] LIPASEon 08-31-2022 Lipase [Catalytic activity/Vol] 120 U/L Normal 73-393 [facility] Comment on above: Performed By: #### 1 9123-9, 66908-2, 0-3 #### [facility] [address] [place] [address] Nurse'S Assistant - Ria SALGADO [id number] MAGNESIUMon 08-31-2022 Magnesium [Mass/Vol] 2.1 mg/dL Normal 1.6-2.6 [facility] Comment on above: Performed By: #### 1 9123-9, 11384-3, 3040-3 #### [facility] [address] [place] [address] Nurse'S Assistant - Ria SALGADO [id number] PT and aPTT panel Coag (PPP) on 08-31-2022 aPTT Coag (PPP) [Time] 27.4 s Normal 23.5-31.3 [facility] Comment on above: Performed By: #### 3 4529-8 #### [place] [address] [facility]. [place] [address] Nurse'S Assistant - Ria SALGADO [id number] HPTINR INR REFERENCE RANGE INTERPRETATION Patients on Coumadin 2.0 - 3.0 Patients with mechanical heart valves 2.5 - 3.5 Normal [facility] Comment on above: Performed By: #### 3 4529-8 #### [facility] [address] [place] [address] Nurse'S Assistant - Ria SALGADO [id number] INR Coag (PPP) [Relative time] 1.0 {INR} Normal 0.8-1.1 [facility] Comment on above: Performed By: #### 3 4529-8 #### [facility] [address] [place] [address] Nurse'S Assistant - Ria SALGADO [id number] PT Coag (PPP) [Time] 10.7 s Normal 9.3-11.5 [facility] Comment on above: Performed By: #### 3 4529-8 #### [facility] [address] [place] [address] Nurse'S Assistant - Ria SALGADO [id number] TROPONIN HIGH SENSITIVITYon 08-31-2022 TNIH 7.30 pg/mL Normal <=59.00 [facility] Comment on above: Result Comment: <59 pg/mL is considered a negative result. Performed By: #### T ROP2 #### [place] [address] [place], [place] [address] Nurse'S Assistant - Ria SALGADO [id number] TNIH 5.50 pg/mL Normal <=59.00 [facility] Comment on above: Result Comment: <59 pg/mL is considered a negative result. Performed By: #### T ROP2 #### [facility] [address] [place] [address] Nurse'S Assistant - Ria SALGADO [id number] Basophil percentageon 2021 Testosterone [Mass/Vol] 528.83 ng/dL [facility] Work Phone: Comment on above: CENTRAL 90% REFERENC E RANGES MALE AGE <50 197.44 - 669.58 ng/dL MALE AGE > or = 50 187.72 - 684.19 ng/dL FEMALE AGE <50 8.38 - 35.01 ng/dL FEMALE AGE > or = 50 <7.00 - 35.92 ng/dL Effective as of 02/07/21 No Panel Informationon 02-15 Thyroid Stimulating Hormone (TSH) 2.26 uIU/mL 0.358-3.74 [facility] Work Phone: Basophil percentageon 2021 Testosterone [Mass/Vol] 462.24 ng/dL [facility] Work Phone: Comment on above: CENTRAL 90% REFERENC E RANGES MALE AGE <50 197.44 - 669.58 ng/dL MALE AGE > or = 50 187.72 - 684.19 ng/dL FEMALE AGE <50 8.38 - 35.01 ng/dL FEMALE AGE > or = 50 <7.00 - 35.92 ng/dL Effective as of 02/07/21 Basophil percentageon 2021 Testosterone [Mass/Vol] 139.80 ng/dL [facility] Work Phone: Comment on above: CENTRAL 90% REFERENC E RANGES MALE AGE <50 197.44 - 669.58 ng/dL MALE AGE > or = 50 187.72 - 684.19 ng/dL FEMALE AGE <50 8.38 - 35.01 ng/dL FEMALE AGE > or = 50 <7.00 - 35.92 ng/dL Effective as of 02/07/21 Basophil percentageon 2021 Chloride [Moles/Vol] 104 mmol/L 98-107 [facility] Work Phone: Glucose [Mass/Vol] 102 mg/dL 74-106 [facility] Work Phone: Comment on above: Fasting Glucose resu lt from 100 to 125 mg/dL suggests IMPAIRED HOMEOSTASIS per A.D.A. criteria. Potassium [Moles/Vol] 4.4 mmol/L 3.5-5.1 [facility] Work Phone: Sodium [Moles/Vol] 142 mmol/L 136-145 [facility] Work Phone: Testosterone [Mass/Vol] 168.60 ng/dL [facility] Work Phone: Comment on above: CENTRAL 90% REFERENC E RANGES MALE AGE <50 197.44 - 669.58 ng/dL MALE AGE > or = 50 187.72 - 684.19 ng/dL FEMALE AGE <50 8.38 - 35.01 ng/dL FEMALE AGE > or = 50 <7.00 - 35.92 ng/dL Effective as of 02/07/21 Laboratory - Chemistry and C hemistry - challengeon 11-08-2021 CO2 [Moles/Vol] 29.0 mmol/L 21.0-32.0 [facility] Work Phone: Urea nitrogen/Creatinine [Mass ratio] 12.6 mg/mg 10-20 [facility] Work Phone: No Panel Informationon 11-08 Estimated GFR (MDRD) Amer 101 mL/min >60 [facility] Work Phone: Comment on above: GFR Calc Estimated GFR (MDRD) Non-Af Amer 83 mL/min >60 [facility] Work Phone: Comment on above: Non- GFR Calc Serum or plasma calcium valentín urement (mass/volume)on 11-08-2021 Calcium [Mass/Vol] 9.0 mg/dL 8.5-10.1 [facility] Work Phone: Serum or plasma creatinine m easurement (mass/volume)on 11-08-2021 Creatinine [Mass/Vol] 1.03 mg/dL 0.70-1.30 [facility] Work Phone: Comment on above: The validity of the calculated GFR & GFRAA in patients over 70 years has not been determined. Clinical correlation is essential. Serum or plasma urea nitroge n measurement (mass/volume)on 11-08-2021 Urea nitrogen [Mass/Vol] 13 mg/dL 7-18 [facility] Work Phone: Thin prep Papanicolaou smear with manual screeningon 11-08-2021 Thin prep Papanicolaou smear with manual screening 9 5-15 [facility] Work Phone: MRI CERVICAL SPINE WO IVCONo n 11-10-2019 MRI CERVICAL SPINE WO IVCON * * *Final Report* * * DATE OF EXAM: Nov 10 2019 11:09AM [id number] [id number] - MRI CERVICAL SPINE WO IVCON / PROCEDURE REASON: cervical * * * * Physician Interpretation * * * * COMPARISON: Plain radiograph from 07/02/2011. HISTORY: Neck pain with numbness in right hand. TECHNIQUE: MRI cervical spine spine without contrast. MQ: [id number] RESULT: MRI CERVICAL SPINE: Acute abnormality: None. Decreased disc height and signal with minimal posterior bulges at C5-6 and C6-7 indicating mild early disc degeneration. Remaining discs are normal in their height and signal. Normal alignment, vertebral body height, marrow signal, central canal, thecal sac, spinal cord signal/caliber and posterior fossa region. No fracture/dislocation. Normal soft tissues. C2 -- 3: Patent central canal. Patent bilateral neural foramina. C3 -- 4: Patent central canal. Patent bilateral neural foramina. C4 -- 5: Patent central canal. Patent bilateral neural foramina. C5 -- 6: Decreased disc height and signal. Diffuse disc bulge slightly eccentric to right with right far lateral annular tear and protrusion indenting on exiting right C6 normal. Mild right foramina narrowing. Patent central canal and left neural foramen. C6 -- 7: Decreased disc height and signal. Diffuse disc bulge. Right facet osteoarthritis. Mild to moderate right foramina narrowing. Patent central canal and left neural foramina. C7 -- T1: Patent central canal. Patent bilateral neural foramina. IMPRESSION: Right eccentric C5-6 and C6-7 level degeneration detailed above. COUNTING REFERENCE: Superior most cervical disc is taken as C2-3. Structural anomalies: None. [employer] Worker: PSCB Transcribe Date/Time: Nov 10 2019 12:16P Dictated by : PANCHO CANELA MD This examination was interpreted and the report reviewed and electronically signed by: PANCHO CANELA MD on Nov 10 2019 12:19PM EST [id number] Normal [facility] [place] [facility] PROGRESSon 11-10-2019 PROGRESS HNO ID: [id number] Author: Jeet Price (Rt) Service: ? Author Type: After School Counselor Type: Progress Notes Filed: 11/10/2019 10:54 AM Note Text: Radiology Service Progress Note PATIENT NAME: Allegra Marion DATE OF SERVICE: November 10, 2019 TIME: 10:53 AM PATIENT IDENTITY VERIFICATION COMPLETED USING TWO (2) IDENTIFIERS: Name and Date of confirmed by patient verbally. FALL SCREENING: Has the patient had 2 falls in the last year or 1 fall with injury or currently using an Ambulatory Assistive Device (Walker, Cane, Wheelchair, Crutches, etc.)? No PATIENT GENDER DATA: Male PATIENT RELEVANT IMPLANT DATA REVIEWED: Yes RADIOLOGY DEPARTMENT: MR; Exam(s) Completed: Spine: Cervical spine PERIPHERAL IV DATA: Not applicable SIGNED BY: RT Albert November 10, 2019 10:53 AM Normal [facility] [place] [facility] EMERGENCY DEPARTMENTon 06-13 [place] [address] HEALTH INFORMATION MANAGEMENT EMERGENCY DEPARTMENT : [phone] Signed Patient: ALLEGRA MARION Acct:[id number] MRUN: [id number] : 1975 Sex: M Loc: ED ADM Date: 06/12/18 Room/Bed: DISC Date: History of Present Illness - General Chief complaint: Laceration Stated complaint: CUT LIP Symptom onset: 06/12/18 HPI: PT STATES THAT HE SLIPPED IN THE MUD AND FELL FORWARDS CUTTING HIS UPPER LIP. Time Seen by Provider: 06/12/18 23:47 Nurses Notes Reviewed and Agreed With?: Yes Source: Patient Mode of Transport: Ambulatory - History of Present Illness Initial comments: Patient was walking in mud when he slipped and fell forward. he hit his face on a rock. he sustained a laceration to the left upper lip. His last tetanus is unknown. He denies any tooth injury. No LOC. He did put ice on it prior to arrival. - Related Data Home Medications Medication Instructions Recorded Confirmed Propranolol HCl [Propranolol HCl 80 mg PO DAILY 06/13/18 06/13/18 ER] Allergies Allergy/AdvReac Type Severity Reaction Status Date / Time acetaminophen Allergy Verified 06/13/18 00:00 [From Darvocet-N] bee venom protein (honey bee) Allergy Verified 06/13/18 00:00 dichloralphenazone Allergy Verified 06/13/18 00:00 [From Midrin] isometheptene [From Midrin] Allergy Verified 06/13/18 00:00 nortriptyline Allergy Verified 06/13/18 00:00 propoxyphene Allergy Verified 06/13/18 00:00 [From Darvocet-N] sulfamethoxazole Allergy Verified 06/13/18 00:00 [From Bactrim] trimethoprim [From Bactrim] Allergy Verified 06/13/18 00:00 Review of System - Constitutional Constitutional: Present: Well developed, Well nourished, Non-toxic - Nose,Throat,Mouth Nose (ROS): Absent: pain Throat: Absent: pain, swelling, discharge Mouth: Absent: pain, swelling - Respiratory Respiratory: Absent: cough, short of breath, wheezing - CV Cardiology: Absent: chest pain, edema - GI Gastrointestinal/Abdo indra: Absent: abdominal pain, diarrhea, nausea, vomiting - Genitourinary Symptoms: Absent: dysuria - Neuro Neurological: Absent: headache, weakness - Muskuloskeletal Musculoskeletal: Absent: back pain, joint pain, joint swelling - Integumentary Skin: Present: see HPI - Allergic/Immunologic Immunological/Allergi c: Present: no symptoms reported - Hematologic Hematologic/Lymphatic : Absent: easy bleeding, easy bruising, swollen glands - Endocrine Endocrine: Present: no symptoms reported - Psychiatric Psychiatric: Present: Normal Affect, Normal Mood. Absent: Depressed - All Others/Exceptions All Other Systems: Reviewed and Negative Except Where Noted in Documentation ED PMH/Social HX/Family HX - Suicide/Homicide Screen Past 2 weeks, Have you felt down, depressed or hopeless?: No Past 2 Wks, Have you had thoughts killing yourself or others: No In your lifetime, have you attempt kill yourself or others?: No In your lifetime, When did this Happen?: Not Applicable General Exam - General Limitations: Complains of: no limitations Constitutional: Present: Well developed, Well nourished, well hydrated, Non-toxic - Head Head exam: Present: atraumatic, normocephalic, normal inspection - Eye Eye exam: Present: normal apperance, normal accomodation, EOMI Pupils: Present: PERRL - Expanded ENT Exam Mouth exam: Present: other (1.25cm vertical laceration to left upper lip. It touches the sara border. Teeth are normal. There is a superficial laceration to the inner lower lip.) - Vital Signs Vital Signs 06/12/18 23:51 Temperature 97.6 F Pulse Rate [ 67 Pulse Ox] Respiratory 16 Rate Blood Pressure 128/87 [Left Arm Sitting] O2 Sat by Pulse 97 Oximetry(%) Procedures - Laceration/Wound Repair Face Body Four View: 1 - Left upper lip Length: 1.25 (cm) Anesthetic Used: Lidocaine 1% Layered Closure: 1 Wound closure layer 1: Skin, Closed With (5), Suture size/needle size (5-0), Vicryl, Simple suture Primary Dressing: Gauze Pad Medical Desicion Making - Lab Data Orders: Labs 06/12/18 23:51 Diph,Pertuss(Acell),T et Vac/Pf [Boostrix Vaccine 0.5 ml Vial] 0.5 ml IM .ONCE ONE Lidocaine HCl [Xylocaine 1% (Plain) Injection] 200 mg SQ ONE ONE - Medical Decision Making The patients tetanus shot was updated. 5 sutures were placed in the left upper lip. The vermilion border was approximated. Patient tolerated this well. He will keep ice on this area. he will follow up with his PCP next week for a wound check ED Discharge Summary - Discharge Data Clinical Impression: Laceration of upper lip with complication Condition: Good Disposition: 01 HOME, SELF-CARE Admit is Medically Necessary, Anticipated Stay >2 Midnights:: No Referrals: LYNDON LIMA MD [Primary Care Provider] - Home Medications: Ambulatory Orders Medication Instructions Recorded Propranolol HCl [Propranolol HCl 80 mg PO DAILY 06/13/18 ER] Time Seen by Provider: 06/12/18 23:47 - Dictation Amendments/Documentat ion: [employer] Document Only Electronically Generated By: CELSO HEATH MD Generated Date/Time: 06/13/18 0009 Electronically Signed By: CELSO HEATH MD Signed Date/Time 06/13/18 0013 Co Signed Electronically By: Co Signed Date/Time: CC: LYNDON LIMA MD [facility] Clinical Summary: HMSPatient IDon 12-26-2017 OOP Invalid Interpretation Code [facility] Work Phone: Office Visit: Follow-up by miles bolden : 45on 12-26-2017 NEGATED: Highlighted rowDocumentation of current medications (procedure) Done Invalid Interpretation Code [facility] Work Phone: Vital Signs Date Time Vital Sign Value Performing Clinician Facility 07-28-2024 10:27-0500 Body height 185.[address] Lyndon Lima MD Work Phone: [facility] 06-25-2023 08:55-0500 Body temperature 99 [degF] Dr. Lyndon Lima Work Phone: [facility] 06-25-2023 08:55-0500 Diastolic blood pressure 75 mm[Hg] Dr. Lyndon Lima Work Phone: [facility] 06-25-2023 08:55-0500 Heart rate 82 /min Dr. Lyndon Lima Work Phone: [facility] 06-25-2023 08:55-0500 Respiratory rate 18 /min Dr. Lyndon Lima Work Phone: [facility] 06-25-2023 08:55-0500 SaO2% (BldA) [Mass fraction] 96 % Dr. Lyndon Lima Work Phone: [facility] 06-25-2023 08:55-0500 Systolic blood pressure 101 mm[Hg] Dr. Lyndon Lima Work Phone: [facility] 06-25-2023 07:56-0500 Body height 185.[address] Lyndon Lima Work Phone: [facility] 06-25-2023 07:56-0500 Body mass index (BMI) [Ratio] 31.8 kg/m2 Dr. Lyndon Lima Work Phone: [facility] 06-25-2023 07:56-0500 Body weight 109.[address] Lyndon Lima Work Phone: [facility] 04-16-2023 11:58-0400 Body mass index (BMI) [Ratio] 32.3 kg/m2 Dr. Lyndon Lima Work Phone: [facility] 04-16-2023 11:58-0400 Body weight 111.[address] Lyndon Lima Work Phone: [facility] NEGATED: Highlighted [id number] 13:09-0400 BMI (Body Mass Index) 30.98 kg/m2 Sherlyn Fiona [facility] Work Phone: NEGATED: Highlighted [id number] 13:09-0400 BP Diastolic 66 mm[Hg] [facility] Work Phone: NEGATED: Highlighted [id number] 13:09-0400 BP Systolic 102 mm[Hg] Sherlyn Jaimes LPN [facility] Work Phone: NEGATED: Highlighted [id number] 13:0400 Height 185.42 cm Sherlyn Jaimes LPN [facility] Work Phone: NEGATED: Highlighted [id number] 13:040 Height 185 cm Sherlyn Jaimes SALES REPRESENTATIVE [employer] [facility] Work Phone: NEGATED: Highlighted [id number] 13:040 Pulse (Heart Rate) 68 /min Sherlyn Shanksine SALES REPRESENTATIVE [employer] [facility] Work Phone: NEGATED: Highlighted [id number] 13:090400 Weight 106.14 kg Sherlyn Jaimes SALES REPRESENTATIVE [employer] [facility] Work Phone: NEGATED: Highlighted [id number] 13:090400 Weight 106 kg Sherlyn Jaimes SALES REPRESENTATIVE [employer] [facility] Work Phone: Encounters Encounter Date Encounter Type Care Provider Facility Start: 12-16-2024 ambulatory Lyndon Lima Facility:[facility] Start: 09-23-2024 End: 09-23-[address] Lyndon Lima MD Work Phone: [facility] Work Phone: Start: 09-23-2024 End: 09-23-[address] Lyndon Lima MD -Laboratory, [facility] Start: 09-23-2024 End: 09-23-2024 ambulatory Lyndon Lima Facility:[facility] Start: 07-28-2024 End: 07-28-[address] Amando Roca MD -[facility] Start: 07-28-2024 End: 07-28-2024 ambulatory Lyndon Lima Facility:[facility] Start: 05-27-2024 End: 05-27-2024 ambulatory Lyndon Lima Facility:[facility] Start: 12-25-2023 End: 12-25-2023 ambulatory Lyndon Lima Facility:[facility] Start: 06-25-2023 Non-patient / Non-visit Dr. Dino Lima Work Phone: [facility] Start: 06-25-2023 End: 06-25-2023 Admission to same day surgery center Dr. Lyndon Lima Work Phone: [facility] Work Phone: Start: 06-25-2023 End: 06-25-[address] Lyndon Lima Work Phone: [facility] Work Phone: Start: 04-16-2023 Non-patient / Non-visit Dr. Dino Lima Work Phone: [facility] Work Phone: Start: 03-14-2023 End: 03-14-2023 ambulatory [facility] Work Phone: Start: 03-14-2023 End: 03-14-2023 Patient encounter procedure [facility] Start: 11-09-2022 End: 11-09-[address] Lyndon Lima Work Phone: [facility] Work Phone: Start: 11-09-2022 End: 11-09-[address] Lyndon Lima Work Phone: [facility] Start: 09-12-2022 Non-patient / Non-visit Dr. Dino Lima Work Phone: [facility] Start: 09-12-2022 End: 09-12-[address] Lyndon Lima Work Phone: [facility] Start: 09-06-2022 End: 09-06-[address] Lyndon Lima Work Phone: [facility] Work Phone: Start: 09-06-2022 End: 09-06-[address] Lyndon Lima Work Phone: [facility] Start: 08-31-2022 End: 08-31-2022 ambulatory LYNDON Alegre Facility:[facility] Start: 08-27-2022 End: 08-27-2022 ambulatory [facility] Work Phone: Start: 08-27-2022 End: 08-27-2022 [facility] Start: 02-15-2022 End: 02-15-2022 [facility] Start: 12-28-2021 End: 12-28-2021 Patient encounter procedure [facility] Start: 11-15-2021 End: 11-15-2021 Patient encounter procedure [facility] Start: 11-08-2021 End: 11-08-2021 Patient encounter procedure [facility] Start: 08-16-2021 Registered [facility] Start: 06-13-2018 End: 06-13-2018 Emergency department patient visit LYNDON LIMA Facility: Start: 12-26-2017 End: 12-27-2017 Patient encounter procedure Michelle Bryan BRIDGE ATTACHER-DATABASE ADMINISTRATOR Work Phone: [facility] Work Phone: Procedures Date Procedure Procedure Detail Performing Clinician Start: 07-28-2024 Complete x-ray serie s of lumbar spine with bending views Dr. Lyndon Lima MD Work Phone: Start: 06-25-[address] Lyndon sheldon Work Phone: Start: 09-12-2022 Radionuclide imaging of perfusion of myocardium under exercise stress Dr. Lyndon Lima Work Phone: Start: 08-27-2022 Radiography of thora cic spine Start: 12-26-2017 End: 12-27-2017 Blood pressure within normal parameters - no follow-up required Michelle Bryan BRIDGE ATTACHER-DATABASE ADMINISTRATOR Work Phone: Start: 12-26-2017 End: 12-27-2017 BMI documented as above normal parameters - follow-up documented Michelle Bryan BRIDGE ATTACHER-DATABASE ADMINISTRATOR Work Phone: Start: 12-26-2017 End: 12-27-2017 Current medications documented Michelle Bryan BRIDGE ATTACHER-DATABASE ADMINISTRATOR Work Phone: Start: 12-26-2017 End: 12-27-2017 Pain assessment documented as positive - follow-up documented Michelle Bryan BRIDGE ATTACHER-DATABASE ADMINISTRATOR Work Phone: Start: 12-26-2017 End: 12-27-2017 Tobacco non-user Michelle Bryan BRIDGE ATTACHER-DATABASE ADMINISTRATOR Work Phone: Plan of Treatment Date Care Activity Detail Author Start: 06-25-2023 Patient discharge [facility] Start: 09-06-2022 End: 09-06-2022 Procedure [facility] Start: 01-06-2018 End: 01-06-2018 Appointment Appointment [facility] Work Phone: Start: 12-26-2017 End: 12-26-2017 Mri spinal canal lumbar w/o & w/contr matrl MRI lumbar with and without contrast [facility] Work Phone: Colonoscopy [facility] Patient referral [facility] Work Phone: Immunizations Immunization Date Immunization Notes Care Provider Mirella gayle No information available. Sherlyn Jaimes LPN [facility] Work Phone: Payers Date Payer Category Payer Self-pay [id number] 1975 Unknown [id number] 1957 Unknown [id number] Private Health Insurance [id number] Unknown [id number] [id number] [id number] Unknown [id number] 2.16.8 [id number] Unknown [id number] 2.16.8 [id number] Unknown [id number] 2.16.8 [id number] Unknown [id number] 2.16.8 [id number] Unknown [id number] 2.16.8 [id number] Social History Date Type Detail Facility Start: 07-09-2021 End: 06-25-2023 Assertion Unknown if ever smoked [facility] Work Phone: Start: 1975 Sex Assigned At Male [facility] Start: 07-28-2024 Tobacco smoking stat [facility] Never smoked tobacco (finding) [facility] Start: 10-02-2024 Sex Male (finding) [facility] Goals Date Patient Goal Desired Activity /State Mental Status Date Assessment Result Facility 06-25-2023 Cognitive function Voice/Name [facility] Work Phone: Procedure note 06-25-2023 Note Date & Type Note Facility 06-25-2023 Procedure note [facility] Procedure note 06-25-2023 Note Date & Type Note Facility 06-25-2023 Procedure note [facility] Evaluation note Note Date & Type Note Facility Evaluation note No assessment information availa ble [facility] Work Phone: Evaluation note Note Date & Type Note Facility Evaluation note Diagnosis Onset Date Encounter for screening for malignant neoplasm of colon acute [facility] Work Phone: History and physical note Note Date & Type Note Facility History and physical note Note Date/Time June 25, 2023 8:17am [facility] Medical Records Department [address] [place] [address] History & Physical Exam 06/25/23815 MR#: [id number] Acct: [id number] Name: ALLEGRA MARION Rep #:[id number] 07 : 1975 47 From: Fili lopez MD PCP: Dr. Lyndon Lima MD Status:REG S CO Location: [place] [address] HPI - General HPI Narrative ALLEGRA MARION, is a 47 M who presents for screening colonoscopy. The patient denies any abdominal pain or blood in the stool. He does not have any family history of colon cancer. [facility] Medical History (Updated 06/20/23 @ 12:09 by Felisha Bronson) Alcohol use Arthritis Chronic pain CPAP (continuous positive airway pressure) dependence Heartburn History of deviated nasal septum History of stress test History of ulceration Low iron Migraine headache Non-smoker Wears glasses Home Medications epinephrine 0.3 mg/0.3 mL injection, auto-injector 0.3 mg (0.3 mL) IM X1 ##1 02/19/16 [Rx Last Taken Unknown] ferrous sulfate 325 mg (65 mg iron) tablet 325 mg PO DAILY 04/16/23 [History Last Taken Unknown] hydroxychloroquine 200 mg tablet (Plaquenil) 200 mg PO BID 04/16/23 [History Last Taken Unknown] testosterone cypionate 200 mg/mL intramuscular oil 100 mg IM Q2W 04/16/23 [History Last Taken Unknown] Allergy/AdvReac Type Severity Reaction Status Date / Time sulfamethoxazole Allergy Mild Rash Verified 06/25/23 07:55 [From Bactrim] trimethoprim [From Bactrim] Allergy Mild Rash Verified 06/25/23 07:55 acetaminophen Allergy Other Verified 06/25/23 07:55 [From Darvocet-N] dichloralphenazone Allergy Unknown Verified 06/25/23 07:55 [From Midrin] isometheptene [From Midrin] Allergy Unknown Verified 06/25/23 07:55 pentazocine [From Talacen] Allergy Other Verified 06/25/23 07:55 propoxyphene Allergy Other Verified 06/25/23 07:55 [From Darvocet-N] Sulfa (Sulfonamide Allergy Rash Verified 06/25/23 07:55 Antibiotics) venom-honey bee Allergy Anaphylaxis Verified 06/25/23 07:55 [bee venom (honey bee)] Surgical History (Updated 06/20/23 @ 12:09 by Felisha Bronson) History of shoulder surgery History of surgery Hx of discectomy Social History Smoking Status: Never smoker Past Medical/Surgical History Planned Operation Planned Operative Procedure/s: CSCOPE OA Previous Hospitalizations/Surgeries HX Hospitalizations: No Any Problems With Anesthesia: No You/Your Family Experience Fever (Hyperthermia) With Anes: No Cholinesterase deficiency: No Cardiovascular Hx Hypertension: No Respiratory Hx Sleep Apnea: Yes CPAP: Yes BIPAP: No Hx Respiratory Tract Infection/Cold (presently): No Result (for STOP score): Positive Smoking Status: Never smoker Neurological Hx Seizures: No (migraines) Hx Back Injury/Pain: Yes Does patient have nerve stimulator: Yes Reproduction : No Miscellaneous Recent Exposure to Contagious Disease: No Allergies sulfamethoxazole [From Bactrim] Allergy (Mild, Verified 06/25/23 07:55) Rash trimethoprim [From Bactrim] Allergy (Mild, Verified 06/25/23 07:55) Rash acetaminophen [From Darvocet-N] Allergy (Verified 06/25/23 07:55) Other dichloralphenazone [From Midrin] Allergy (Verified 06/25/23 07:55) Unknown isometheptene [From Midrin] Allergy (Verified 06/25/23 07:55) Unknown pentazocine [From Talacen] Allergy (Verified 06/25/23 07:55) Other propoxyphene [From Darvocet-N] Allergy (Verified 06/25/23 07:55) Other Sulfa (Sulfonamide Antibiotics) Allergy (Verified 06/25/23 07:55) Rash venom-honey bee [bee venom (honey bee)] Allergy (Verified 06/25/23 07:55) Anaphylaxis Discharge Is Pt Admitted From a Detention, or a Residential: No After D/C, Where Do you Plan to Go: Return Home Vital Signs Vital Signs Vital Signs: 06/25/23 07:56 06/25/23 07:56 Temperature 97.8 F Temperature Source Temporal Pulse Rate 79 Respiratory Rate 18 Respiratory Pattern Normal Blood Pressure 136/93 H Blood Pressure Mean 107 Blood Pressure Source Monitor Blood Pressure Position Sitting Blood Pressure Location Right Arm Pulse Ox 98 Oxygen Delivery Method Room Air Weight Weight: 240 lb 15.444 oz Body Mass Index (BMI) 31.8 Physical Exam Const alert and oriented x3 HEENT normocephalic Eyes PERRL Resp normal respiratory effort and normal air movement Cardio regular rate and regular rhythm GI soft to palpation, non-tender and non-distended Extremity normal to inspection Assessment & Plan Assessment/Plan (1) Encounter for screening for malignant neoplasm of colon: PLAN: I explained endoscopy in detail to the patient. I explained the risks including but not limited to stroke or heart attack with anesthesia, perforationof the GI tract, bleeding, infection. I explained that any of these could necessitate further emergency surgery. The patient understands and all questions were answered sufficiently. The patient wishes to proceed with procedure. Fili Caba MD Pager: [facility] [address] [place] [address], [address] [place] [address] Office: Surgery Risks - Colonoscopy Risks Include but are not Limited To: Risks include but are not limited to: Bleeding, perforation requiring further surgery, inability to complete colonoscopy requiring barium enema. 06/25/23 0817 <Electronically signed by Fili Caba MD> Cosigner Signature (if applicable): CC: Dr. Fili Caba MD; Dr. Lyndon Lima MD~ Signed [facility] Work Phone: Reason for referral (narrative) Note Date & Type Note Facility Reason for referral (narrative) No reason for referral information available [facility] Work Phone: Instructions Instruction Description Start Date CompletedPatient advised to follow-up with Primary Care Physician for BMI management. Advance Directives No Advanced Directives Records Found Advance Directive Response Recorded Date/ Time Living Will No March 15 8:53am Power of Concrete Block Mason No March 15, 2021 8:53am Advance Directive Response Recorded Date/ Time Living Will No March 15 7:53am Power of Concrete Block Mason No March 15, 2021 7:53am Advance Directive Response Recorded Date/ Time Living Will No June 20 12:03pm Power of Concrete Block Mason No June 20, 2023 12:03pm Assessments There may be information available, but [...] FoundNo Family History Records Found Summary Purpose Chief Complaint and Reason for Visit Chief Complaint SP MASS Chief Complaint CP CP Chief Complaint Amb Documentation Reason for Visit Encounter for screen ing for malignant neoplasm of colon Chief Complaint Admit Date XRAY July 28, 2024 1 0:28am Additional Source Comments (unrecognized sect ion and content) No Status Records FoundNo Status Records FoundNo Status Records FoundNo Status Records Found INFORMATION SOURCE (unrecogn ized section and content) DATE CREATED AUTHOR 06/23/2018 [facility] DATE CREATED AUTHOR AUTHOR'S ORGANIZ ATION 11/10/2019 [facility] DATE CREATED AUTHOR AUTHOR'S ORGANIZ ATION 09/05/2022 [facility] DATE CREATED AUTHOR AUTHOR'S ORGANIZ ATION 12/17/2024 [facility] Goals (unrecognized section and content) Goals may be documented in a n alternate sectionGoals may be documented in an alternate sectionGoals may be documented in an alternate sectionGoals may be documented in an alternate sectionGoals may be documented in an alternate sectionGoals may be documented in an alternate sectionGoals may be documented in an alternate sectionGoals may be documented in an alternate sectionGoals may be documented in an alternate section Care Teams (unrecognized sec tion and content) Team Status: Active Member Role Status Dates Dr. Lyndon Lima MD Family Provider Active Dr. Lyndon Lima MD Primary Care Provider Active Team Status: Inactive Member Role Status Dates Dr. Lyndon Lima MD Primary Care Provider Active Georgette Newton BUCKET HOOKER, BUCKET HOOKER-C Attending Provider, Referring Pr ángel Active Team Status: Active Member Role Status Dates Dr. Lyndon Lima MD Primary Care Provider Active Dr. Sheryl Moncada MD Referring Provider, Other Provi gwen Active Dr. Lyndon Greenwood MD Attending Provider Active Team Status: Active Member Role Status Dates Dr. Lyndon Lima MD Primary Care Provider Active Dr. Sheryl Moncada MD Attending Provider, Referring P kelsey Active Team Status: Inactive Member Role Status Dates Dr. Lyndon Lima MD Primary Care Provider Active Dr. Isaac Godwin MD Attending Provider, Referring P rovider Active Team Status: Inactive Member Role Status Dates Dr. Lyndon Lima MD Primary Care Provider Active Dr. Sheryl Moncada MD Attending Provider, Referring P rovider Active Team Status: Inactive Member Role Status Dates Dr. Lyndon Lima MD Primary Care Provider, Attending Provider Active Team Status: Active Member Role Status Dates Dr. Lyndon Lima MD Primary Care Provider Active [facility] Attending Provider Active Team Status: Active Member Role Status Dates Dr. Lyndon Lima MD Primary Care Provider, Referring Provider Active Dr. Fili Caba MD Attending Provider, Other Provider Active Team Status: Inactive Member Role Status Dates Dr. Lyndon Lima MD Primary Care Provider, Referring Provider Active Dr. Fili Caba MD Attending Provider Active Team Status: Inactive Member Role Status Dates Dr. Lyndon Lima MD Primary Care Provider Active Start: July 28, 2024 End: July 28, 2024 Dr. Amando Roca MD Attending Provider Active S tart: July 28, 2024 End: July 28, 2024 Team Status: Inactive Member Role Status Dates Dr. Lyndon Lima MD Primary Care Provider Active Start: September 23, 2024 End: September 23, 2024 Dr. Lyndon Lima MD Attending Provider Active Start: September 23, 2024 End: September 23, 2024 Dr. Lyndon Lima MD Referring Provider Active Start: September 23, 2024 End: September 23, 2024 FOR RECORDS PERTAINING TO PATIENTS WHO ARE [...] BE BASED ON THE PRIMARY CLINICAL RECORDS. [employer] provides no warranty or guarantee of the accuracy or completeness of information in this document.
[2024-12-23 10:15] LABS: Absolute Lymphocyte Count 1.39 X10^3/uL (0.83-4.51); Absolute Neutrophil Count 4.6 X10^3/uL (2.0-7.7); Basophil# 0.03 X10^3/uL; Basophil% 0.4 % (0-1); Eosinophil# 0.07 X10^3/uL; Hematocrit 44.4 % (40-54); Hemoglobin 13.5 g/dL (13.0-16.5); Lymphocyte # 1.39 X10^3/ul (0.83-4.51); Mean Corp Hgb Conc 30.4 g/dL (32-36); Mean Corpuscular Hgb 22.7 pg (27.0-32.0); Mean Corpuscular Volume 74.5 fL (80-94); Mean Platelet Vol. 9.3 fl (6.2-12.0); Monocyte# 0.82 X10^3/uL; Monocyte% 11.8 % (0-10); NRBC Flagged by Analyzer 0 % (0-5); Neutrophil # 4.62 X10^3/uL (2.7-7.7); Neutrophil % 66.4 % (47-70); Platelet Count 248 K/mm3 (150-450); RBC Distribution Width CV 17.5 % (11.6-14.6); RBC Distribution Width SD 43.9 fl (35.1-43.9); Red Blood Count 5.96 M/mm3 (4.6-6.2)
[2024-12-23 12:02] LABS: Cholesterol 170 mg/dL (<=200); High Density Lipoprotein 26 mg/dL; Low Density Lipoprotein Calc. 118 mg/dL; Triglycerides 128 mg/dL; Very Low Density Lipoprotein 26 mg/dL (5-40); cholesterol:hdl ratio screen 6.46
== END | disposition home or self-care (01) ==
LOC: MFPLAB 08:18
PROVIDERS: PCP Family Medicine; Referring Provider Family Medicine; Visit Provider Family Medicine
DX: E29.1 Testicular hypofunction (principal); E66.9 Obesity, unspecified
CPT/HCPCS: 36415; 80061; 84403; 85025

== ENCOUNTER 2025-01-14 10:00 | Outpatient (RCR) | payer SELFPAY ==
--- NOTE | 2024-12-16 09:12 | HP.PTEVAL_ITS ---
Patient's Visit Information Visit Information Visit Information: ALLEGRA GUAJARDO is a 49 year old M referred to Physical Therapy by Self Referred with a diagnosis of Not physician referred, lateral epicondylitis. Date of Evaluation: 12/16/24 Physical Therapist: Juan Mcadams, GELYT, OCS, CSCS Visit Plan Frequency: 1x/Week Duration: 4-6 Weeks Plan: weekly for RPW, Pt to do wrist eextensor stretch 30" 5x 2x/day at home and consider brace which he already has at home, will consider eccentric strength once improved. Does not want to come more frequently for STM, DTR, US. RPW weekly and pt to schedule one week in between. Consented to notifying Dr. Sarabia about this treatment [facility] signed and scanned. Subjective Subjective: R arm pain for 2 months from flipping a house and overusing it. Pain is lateral R elbow. Pain is annoying 6/10 intermittiently. Worse with using it. No other treatments. Using a compression sleeve to keep it at bay. Worse at night with elbow bent. Waking up at night. Does not keep him from doing anything. Pain R elbow: Pain Intensity (Out of 10): 0 Pain Intensity Range: 0 and 6 Objective Objective: R forearm tender at lateral epicondyle moderately. Also down into extensor muscle belly. Pain with extension of wrist and middle finger max and transient. Full elbow , wrist adn shoulder AROM without pain unleess reesistance is added, does feel a stretch with wrist extensor streetching. ceervical aROM WFL and without pain today. + R tennis elbow test. - tinels. Normal sensation in R UE. Strenegth is 4+ but pain on wirst xt and not on elbow flex or ext or wrist flexion. Goals Goal 1:: abolish pain R elbow at night to sleeep without waking Goal Time Frame: 4-6 Weeks Goal 2:: Work with R arm without increased pain Goal Time Frame: 4-6 Weeks Goal 3:: I management of condition. Goal Time Frame: 4-6 Weeks Rehabilitation Potential Physical Therapy Diagnosis: lateral elbow pain making comfortable hand and wrist funcition difficult. pt wants RPW Rehabilitation Potential: Good Anticipated Interventions Patient/Client Instruction: Educate patient on: Condition and Plan of Care For the Purpose of:: To decrease pain and To improve muscle performance and motor function Therapeutic Exercise to Include: Strength training, Flexibilty training, Passive ROM and Active ROM Comment: educate on bracing For the Purpose of:: To decrease pain, To decrease swelling/inflammation and To increase ROM Comment: RPW For the Purpose of:: To decrease pain, To decrease swelling/inflammation and To improve nutrient delivery to tissue Text: Thank you for the opportunity to evaluate your patient. For Medicare and Medicare HMO plans, please review the plan of care and approve it. It will need to be FAXED BACK to us at [phone] for Medicare purposes. For Medicare only, by signing this I certify the plan of care. Please let me know if there are questions or concerns regarding this plan of care. Physician Signature: Date:
--- NOTE | 2025-06-02 14:25 | HP.PT.NRP ---
Patient Information Patient Information: ALLEGRA GUAJARDO was seen in my office for initial evaluation on 12/16/24. The following Plan of Care was established for this patient: POC Established Initial Frequency: 1x/Week Initial Duration: 4-6 Weeks Anticipated Interventions Patient/Client Instruction: Educate patient on: Condition and Plan of Care For the Purpose of:: To decrease pain and To improve muscle performance and motor function Therapeutic Exercise to Include: Strength training, Flexibilty training, Passive ROM and Active ROM Comment: educate on bracing For the Purpose of:: To decrease pain, To decrease swelling/inflammation and To increase ROM Comment: RPW For the Purpose of:: To decrease pain, To decrease swelling/inflammation and To improve nutrient delivery to tissue Last Seen Last Seen: This patient was last seen in our office 01/14/25. Pertinent comments regarding their Physical therapy will appear below: Pt seen 4 visits of luda. Was to schedule next one after his vacation but never did. That was months ago and I will discontinue from my care. At this point I will be discontinuing this patient from physical therapy. I would be happy to see this patient again in the future if found appropriate by the physician. Thank you! Juan Mcadams, DPT, OCS, CSCS
== END 2025-01-14 19:00 | disposition home or self-care (01) ==
LOC: PT 10:00
PROVIDERS: PCP Family Medicine
DX: M77.10 Lateral epicondylitis, unspecified elbow (principal)

== ENCOUNTER → 2025-03-17 | Outpatient (CLI) | payer BC, SELFPAY ==
[2025-03-17 15:15] LABS: Hematocrit 43.0 % (40-54); Hemoglobin 13.4 g/dL (13.0-16.5); Immature Granulocytes Count 0.020 X10^3/uL (0.0-0.0); Mean Corp Hgb Conc 31.2 g/dL (32-36); Mean Corpuscular Volume 77.2 fL (80-94); Mean Platelet Vol. 9.3 fl (6.2-12.0); NRBC Flagged by Analyzer 0 % (0-5); Platelet Count 242 K/mm3 (150-450); RBC Distribution Width CV 17.6 % (11.6-14.6); RBC Distribution Width SD 49.2 fl (35.1-43.9); Red Blood Count 5.57 M/mm3 (4.6-6.2); White Blood Count 7.7 K/mm3 (4.4-11.0)
== END | disposition home or self-care (01) ==
LOC: MFPLAB 14:12
PROVIDERS: PCP Family Medicine; Visit Provider Family Medicine
DX: E66.89 Other obesity not elsewhere classified (principal)
CPT/HCPCS: 36415; 84403; 85025